=== PATIENT | male | born 1945 | race Caucasian/White ===

== ENCOUNTER 2023-08-04 20:49 | Inpatient (IN) | payer BC, MEDICARE, SELFPAY ==
[2023-08-04] VITALS (16 sets, daily range): BP systolic 141–204; BP diastolic 59–169; PULSE 93–122; RESP 13–22; TEMP 38.1; O2SAT 93–98
--- NOTE | ~2023-08-04 | CT_ITS ---
EXAMINATION: CT abdomen pelvis w con DATE: 08/05/2023 17:18 INDICATION: Fever and chills. Low back pain. Failed cholecystostomy tube placement. TECHNIQUE: Computed tomography (CT) of the abdomen and pelvis was performed with 100 mL Omnipaque 350 intravenous contrast. Automated exposure control and iterative reconstruction technique were employe d. The dose-length product was 1162.93 mGy-cm. COMPARISON: CT abdomen and pelvis 08/04/2023 FINDINGS: The visualized portions of the lung bases demonstrate small pleural effusions and mild depe ndent atelectasis. The heart size is normal. There are coronary artery calcifications. No pericardial effusion. There is a small sliding hiatal hernia. The liver and spleen are normal. The gallbladder i s normal in size and contains a gallstone. The pancreas and adrenal glands are normal. There is patch y parenchymal hypoenhancement in the kidneys, right worse than left, consistent with pyelonephritis. There are cysts in left kidney measuring up to 2.8 cm. There is calcified atherosclerosis of the aort a and many of the other arteries. The bladder is decompressed by a Antonio catheter. The prostate is mo derately enlarged. There is a right inguinal hernia containing fat. There is diverticulosis of the co martinez without evidence of diverticulitis. The appendix is not visualized. There is intraperitoneal cont rast predominantly near the liver that was injected during the recent attempted cholecystostomy tube placement. There are foci of free intraperitoneal gas from the recent procedure. There is severe lumb ar spondylosis. IMPRESSION: 1. Cholelithiasis. No gallbladder distention to suggest acute cholecystitis. 2. Bilateral pyelonephritis, right worse than left. I discussed this result with Dr. Davis. 3. Small pleural effusions. Reviewed, dictated and finalized at location A. IMPRESSION: 1. Cholelithiasis. No gallbladder distention to suggest acute cholecystitis. 2. Bilateral pyelonephritis, right worse than left. I discussed this result wit h Dr. Davis. 3. Small pleural effusions.
--- NOTE | ~2023-08-04 | US_ITS ---
US venous doppler [facility] DATE: 08/06/2023 11:40 INDICATION: Swelling of the lower extremities TECHNIQUE: Real-time and color flow imaging and Doppler analysis of the veins of both lower extremiti es COMPARISON: None FINDINGS: The greater saphenous veins are patent. There is spontaneous and phasic flow and normal aug mentation and color flow signal and normal compression of the deep veins of both lower extremities. IMPRESSION: No evidence of deep venous thrombosis of the lower extremities Reviewed, dictated and finalized at Location A. Reviewed, dictated and finalized at location A.
--- NOTE | ~2023-08-04 | XR_ITS ---
EXAMINATION: XR chest 1V portable Exam Date/Time: 08/04/2023 21:35 CDT HISTORY: weakness,fall and fever Comparison: None. RESULT: Lines, tubes, and devices: None. Lungs and pleura: Subsegmental left basilar airspace opacity. Cardiomediastinal silhouette: Stable. Other: No acute osseous or upper abdominal finding. IMPRESSION: Subsegmental left basilar atelectasis/consolidation. Reviewed, dictated and finalized at location K.
--- NOTE | ~2023-08-04 | CT_ITS ---
EXAMINATION: CT abdomen pelvis wo con DATE: 08/04/2023 23:48 INDICATION: fátima flank/lbp, uti TECHNIQUE: Computed tomography (CT) of the abdomen and pelvis was performed without intravenous contr ast. Automated exposure control and iterative reconstruction technique were employed. The dose-length product was 728.30 mGy-cm. COMPARISON: None. FINDINGS: Lower thorax: Coronary artery calcifications. Small bilateral pleural effusions. Dependent atelectasi s. 3 mm right lower lobe pulmonary nodule. Liver: Normal. Biliary/Gallbladder: Dilated gallbladder. Large gallstone at the gallbladder neck. No bile duct dilat ion. Pancreas: No mass or duct dilation. Spleen: Normal. Adrenals:No mass. Kidneys: 3.1 cm indeterminate density right upper pole mass. Moderate bilateral perinephric stranding . No obstructing calcifications or hydronephrosis. GI tract: No small or large bowel dilation. Appendix is not confidently visualized. Diverticulosis wi thout diverticulitis. Mesentery/Peritoneum: No ascites, mass, or free air. Retroperitoneum: No mass. Atherosclerotic abdominal aortic and/or arterial calcifications. Pelvis: The urinary bladder is decompressed by Antonio catheter. Prostatomegaly. Small volume free pelv ic fluid. Soft Tissues: Mild body wall edema. Bones: No acute osseous finding. IMPRESSION: Small bilateral pleural effusions. 3 mm right lower lobe pulmonary nodule, for which no imaging is recommended unless the patient is at high risk, in which case consider an optional follow-up low-dose noncontrast CT of the chest in 12 mo nths. Gallbladder hydrops. Large gallstone at the gallbladder neck. Correlate for symptoms of right upper q uadrant pain and with biliary labs. Indeterminate density 3.1 cm right upper pole mass, recommend nonemergent outpatient CT or MRI withou t and with contrast for further evaluation. Trace ascites. Moderate body wall edema. Reviewed, dictated and finalized at location K. IMPRESSION: Small bilateral pleural effusions. 3 mm right lower lobe pulmonary nodule, for which no imaging is recommended unl ess the patient is at high risk, in which case consider an optional follow-up l ow-dose noncontrast CT of the chest in 12 months. Gallbladder hydrops. Large gallstone at the gallbladder neck. Correlate for sym ptoms of right upper quadrant pain and with biliary labs. Indeterminate density 3.1 cm right upper pole mass, recommend nonemergent outpa tient CT or MRI without and with contrast for further evaluation. Trace ascites. Moderate body wall edema.
--- NOTE | ~2023-08-04 | US_ITS ---
EXAMINATION: US perc cholecystostomy w imag DATE: 08/05/2023 17:20 INDICATION: Acute cholecystitis. TECHNIQUE: The procedure including the risks, benefits, and alternatives was discussed with the patie nt. Risks discussed included bleeding including bleeding and infection. Oral and written consent were obtained. A timeout was performed to verify the patient's name, date of , and procedure to b e performed. The skin overlying the liver and gallbladder was prepped and draped in usual sterile fas hion. Anesthetic was administered with 1% lidocaine subcutaneously. An 8.5 Fr catheter was inserted into the area of the gallbladder by trocar technique. The gallbladder was deep to the ribs, which de creased visibility. The metal stiffener and trocar needle were removed, and the pigtail tip was rg d. Bile could not be aspirated. Contrast was injected into tube, and a radiograph demonstrated that t he tube was not in the gallbladder. I removed the catheter. FINDINGS: There is a gallstone in the gallbladder. Ultrasound images demonstrate the catheter near th e gallbladder. IMPRESSION: 1. Failed cholecystostomy tube placement. 2. A CT performed after the procedure demonstrated bilateral pyelonephritis. I discussed this procedu re and the CT findings with Dr. Davis and the patient. Reviewed, dictated and finalized at location A. IMPRESSION: 1. Failed cholecystostomy tube placement. 2. A CT performed after the procedure demonstrated bilateral pyelonephritis. I discussed this procedure and the CT findings with Dr. Davis and the patient.
--- NOTE | ~2023-08-04 | US_ITS ---
EXAMINATION: US renal BI DATE: 08/06/2023 11:38 INDICATION: Right kidney mass. TECHNIQUE: Multiple ultrasound grayscale images of the kidneys were obtained. COMPARISON: CT abdomen and pelvis 08/05/2023, 08/04/2023 FINDINGS: The right kidney measures 12.2 x 6.6 x 6.7 cm. The left kidney measures 12.2 x 6.4 x 6.7 cm. The kidn eys demonstrate normal parenchymal echogenicity. There is no hydronephrosis. The bladder is decompres sed by a Antonio catheter. IMPRESSION: 1. No abnormal kidney mass identified. Reviewed, dictated and finalized at location E.
--- NOTE | ~2023-08-04 | XR_ITS ---
EXAMINATION: XR abdomen/kub 1V DATE: 08/05/2023 17:06 INDICATION: Choledocholithiasis status post cholecystostomy tube placement. TECHNIQUE: A supine view of the abdomen was obtained. COMPARISON: None. FINDINGS: The left lateral aspect of the abdomen is excluded. There are no dilated loops of bowel. Th ere is a gallstone in the gallbladder. A cholecystostomy tube is in the right upper quadrant. There i s contrast at the inferior margin of the liver and in the right paracolic gutter. IMPRESSION: 1. Cholecystostomy tube not in the gallbladder. I removed the cholecystostomy tube. 2. Cholelithiasis. Reviewed, dictated and finalized at location A. IMPRESSION: 1. Cholecystostomy tube not in the gallbladder. I removed the cholecystostomy t ube. 2. Cholelithiasis.
--- NOTE | 2023-08-04 21:11 | ECG_ITS ---
Measurements Intervals [place] Rate: 94 P: 21 WI: 164 QRS: 10 QRSD: 78 T: 14 QT: 325 QTc: 408 Interpretive Statements SINUS RHYTHM ATRIAL PREMATURE COMPLEX NONSPECIFIC ST-T WAVE ABNORMALITY- ANTERIOR LEADS BASELINE ARTIFACT- I, III, AVR, AVL, AVF, V2-V6 BORDERLINE ECG NO PREVIOUS ECG AVAILABLE FOR COMPARISON Electronically Signed On 08-05-2023 7:29:01 CDT by Naga Diallo D.O.
[2023-08-04 21:25] LABS: Basophils Percent Auto 0.2 % (0.2-1.2); Eosinophils Percent Auto 0.1 % (0-4.4); Hematocrit 25.4 % (42.0-52.0); Hemoglobin 8.2 g/dL (14.0-18.0); Immature Granulocyte Percent A 1.2 % (0-0.5); Lymphocytes Absolute Auto 5.68 K/mm3 (0.9-3.2); Lymphocytes Percent Auto 34.5 % (18.3-44.2); Mean Corpuscular HGB Conc 32.3 g/dl (32-36); Mean Corpuscular Hemoglobin 30.6 pg (26-34); Mean Corpuscular Volume 94.8 fl (80-100); Mean Platelet Volume 9.6 fl (7.4-10.4); Neutrophils Absolute Auto 9.5 K/mm3 (1.3-6.7); Platelet Count Result 359 k/mm3 (150-375); Red Blood Count 2.68 M/mm3 (4.6-6.20); Red Cell Distribution Width 15.7 % (11.5-14.5); White Blood Count 16.5 K/mm3 (4.5-10.0)
[2023-08-04 21:36] LABS: Alanine Aminotransferase 34 U/L (6-50); Albumin Level 3.1 g/dL (3.5-5.1); Alkaline Phosphatase 116 U/L (38-126); Anion Gap 7 mmol/L (4-12); Aspartate Amino Transferase 37 U/L (17-59); Bilirubin,Total 0.5 mg/dL (0.2-1.3); Blood Urea Nitrogen 24 mg/dL (9-20); Calcium 8.5 mg/dL (8.4-10.2); Carbon Dioxide 26 mmol/L (22-30); Chloride 97 mmol/L (98-107); Estimated CRCL calculation 43 ml/min; Estimated Glomerular Filt Rate 45; Glucose 128 mg/dL (65-110); Platelet Estimate Slightly Increased (Adequate); Potassium 4.2 mmol/L (3.4-5.0); Sodium 130 mmol/L (137-145)
[2023-08-04 21:37] LABS: Anisocytosis 1+; Hypochromasia 2+; Microcytosis 1+ (NORMAL); Stomatocytes 1+
[2023-08-04 21:38] LABS: Schistocytes Rare
[2023-08-04 21:42] LABS: Appearance Urine Clear (Clear); Bacteria Urine None Seen /hpf; Bilirubin Urine Negative (Negative); Blood Urine Trace (Negative); Color Urine Yellow (Yellow); Glucose Urine UA Negative (Negative); Ketones Urine Negative (Negative); Leukocyte Esterase Ur 2+ LEU/UL (Negative); Nitrate Urine Negative (Negative); Non Pathogenic Casts 0-2; Protein Urine 1+ mg/dL (Negative); RBC Urine 0-2 /hpf (0-2); Specific Grav Ur 1.011 (1.001-1.035); Squamous Epithelial Cell Urine None Seen /hpf (Few); Urobilinogen Urine 0.2 mg/dL (<2.0); WBC Urine 21-50 /hpf (0-3); pH Urine 6.5 (5.0-9.0)
[2023-08-04 21:43] LABS: Add Urine Microscopic? YES
[2023-08-04 22:02] LABS: Influenza A QL RT-PCR Negative (Negative); Influenza B QL RT-PCR Negative (Negative); RSV RNA, RT-PCR Negative (Negative); SARS-CoV-2 RNA PCR Negative (Negative)
--- NOTE | 2023-08-04 23:00 | PC.NURSE ---
UA was sent to lab off of the original catheter that was in place at time of arrival to ed. Daughter asked us to hold of on changing a lozada as she wanted to speak with the doctor about potentially taking it out and leaving it out. BREONNA Ha spoke with daughter and verbalized that she wanted to leave a lozada in place at this time but they could follow up with urology afterwards about potential trials of lozada removal. She did not want to possibly cause urinary retention while the patient was already sick/possibly septic.
[2023-08-04] MEDS: SODIUM CHLORIDE 0.9% IV 1,000 ML 999 ML IV CONT (23:01)
[2023-08-04] MEDS: ACETAMINOPHEN 500 MG TABLET 1000 MG PO (23:01)
--- NOTE | 2023-08-04 23:30 | PC.NURSE ---
lozada catheter changed. This rn removed catheter that was in place at time of presentatinon to the er. This rn then placed a new catheter.
[2023-08-04] MEDS: ONDANSETRON INJ 4 MG/2 ML VIAL IV PUSH (23:31)
[2023-08-04] MEDS: MORPHINE SULFATE (*CRX) 4 MG/ML INJ IV PUSH (23:31)
--- NOTE | 2023-08-04 23:46 | ED.WEAKNESS ---
HPI - Weakness General Chief complaint: Weakness <THEE Edmondson Last Filed: 08/05/23 02:44> Stated complaint: gen weakness, fever <THEE Edmondson Last Filed: 08/05/23 02:44> Time Seen by Provider: 08/04/23 22:48 <THEE Edmondson Last Filed: 08/05/23 02:44> Source: patient and family <THEE Edmondson Last Filed: 08/05/23 02:44> Mode of arrival: ambulatory <THEE Edmondson Last Filed: 08/05/23 02:44> Limitations: no limitations <THEE Edmondson Last Filed: 08/05/23 02:44> History of Present Illness HPI Narrative: patient is a 78-year-old male who presents to the ED with report of weakness and fever. Daughter at bedside graduate assistant providing information. She reports patient was her admitted to a hospital in [place] 3 weeks ago for UTI, sepsis, ARF, new onset AFIB, acute ITP. Found to have urinary retention, Antonio catheter placed. Received IVIG, high dose steroids, multiple platelet infusions. Started on Cardizem for afib, no blood thinners. Hospitalized for 2.5 weeks total. Finished course of oral augmentin for UTI 2 days ago. Today, became increasingly weak, fatigued, and developed a fever. He has not taken anything for the fever. He complains of chronic back pain, which he has previously seen pain management for. Denies abdominal pain, nausea, vomiting. Antonio catheter has been draining appropriately. Has not been changed since it was 1st placed at initial hospitalization. Denies hematuria. <THEE Edmondson Last Filed: 08/05/23 02:44> Related Data Home medications: Home Medications Medication Instructions Recorded Confirmed [place] 5 - 325 mg PO Q4H PRN Pain (Scale 08/04/23 08/05/23 Score 7-10) acetaminophen 325 mg tablet 325 mg PO Q4H PRN Pain, Mild 08/04/23 08/05/23 diltiazem HCl 60 mg tablet 60 mg PO TID 08/04/23 08/05/23 furosemide 20 mg tablet (Lasix) 20 mg PO DAILY 08/04/23 08/05/23 potassium chloride 20 mEq 20 meq PO DAILY 08/04/23 08/05/23 tablet,extended release tamsulosin 0.4 mg capsule (Flomax) 0.4 mg PO DAILY 08/04/23 08/05/23 <April Pardo PA-C - Last Filed: 08/05/23 02:44> Allergies/Adverse reactions: Allergies Allergy/AdvReac Type Severity Reaction Status Date / Time No Known Allergies Allergy Verified 08/04/23 23:03 <April Pardo PA-C - Last Filed: 08/05/23 02:44> Review of Systems Review of Systems: CONSTITUTIONAL: See HPI CARDIOVASCULAR: Denies chest pain RESPIRATORY: Denies dyspnea. GASTROINTESTINAL: Denies abdominal pain, nausea, vomiting, or diarrhea. GENITOURINARY: See HPI. MUSCULOSKELETAL: See HPI. NEUROLOGIC: Reports generalized weakness. Denies headache, dizziness, numbness, or focal weakness. <April Pardo PA-C - Last Filed: 08/05/23 02:44> All systems reviewed & are unremarkable except as noted in HPI and below <April Pardo PA-C - Last Filed: 08/05/23 02:44> ON LICENSE OF [facility] Past Medical History Medical History: Medical History Atrial fibrillation BPH loc w urin obs/LUTS CKD (chronic kidney disease) History of ITP HTN (hypertension), benign <THEE Edmondson Last Filed: 08/05/23 02:44> Surgical History Surgical History: Surgical History (Updated 08/05/23 @ 13:49 by Kris Diamond MD) Hx of appendectomy <THEE Edmondson Last Filed: 08/05/23 02:44> Social History Social History: Social History (Updated 08/05/23 @ 13:51 by Kris Diamond MD) Social History: Lives alone, Spend pack in [place]. No hx of tobacco use. Rare alcohol use but does binge 6-7 drinks once/month. No hx of drug use. Wishes to be DNR. He nominates his daughter to be the individual to make decision for his if he is unable. Smoking status: Never smoker Alcohol intake: never Substance use: never Do You Feel Safe
[2023-08-05] VITALS (29 sets, daily range): BP systolic 123–166; BP diastolic 54–87; PULSE 78–107; RESP 13–20; TEMP 36.8–39.1; O2SAT 90–99; BMI 30.1
--- NOTE | 2023-08-05 00:11 | PC.NURSE ---
Daughter - Yessica Doss
[2023-08-05] MEDS: SODIUM CHLORIDE 0.9% IV 1,000 ML 999 ML IV CONT (00:17)
--- NOTE | 2023-08-05 05:51 | ADMGEN ---
This patient, Travis Sears, was admitted to Medical Room 243-01. Patient/family oriented to hospital policies and general routines including ID bracelet, bed and alarms, visiting hours, pain management, procedures, bathroom and other care routines, personal items, smoking policy, room service/diet, and visiting hours. Information on how to activate the Rapid Response Team has been discussed. Patient/Family are encouraged to report perceived risks to care and to ask questions if they do not understand what they are told or what they should do.
[2023-08-05] MEDS: ACETAMINOPHEN 325 MG TABLET 650 MG PO ×2 (06:02→13:46)
[2023-08-05] MEDS: MORPHINE SULFATE (*CRX) 4 MG/ML INJ IV PUSH (10:40)
--- NOTE | 2023-08-05 12:20 | PM.IMHP ---
H&P: HPI History of Present Illness Date/Time: 08/05/23 12:20 Chief Complaint: Fever, weakness Narrative: 78yo male with AFib, ITP, BPH, psoriatic arthritis on Remicade and HTN here for fever and weakness. Patient lives in [place] but spends his pack in [place]. He was having symptoms of urine retention and has known BPH so his primary care doctor started him on Flomax recently. He has elevated PSA but has declined to see Urology for this. Patient was in [place] when he became ill resulting becoming unresponsive and fall. He was hospitalized for about 2.5 weeks. During that time he developed new onset atrial fibrillation, acute kidney injury and low platelets with concern for ITP. He was treated with IVIG, high-dose steroids and platelet transfusions. He was treated with rate controlling agents and converted. he was not treated with anticoagulation. He also had urine retention with UTI so Antonio placed. Family does not think he had sepsis. Patient became edematous and this was treated with Lasix. Patient states he still has some mild edema but overall improved. His renal function had been trending downward. He was discharged around July 25 from the hospital. He returned to this area about a week ago and has been staying with his sister. He has chronic low back pain but much worse since being in the hospital. He has been able to be up walking with a walker since being at sister's house. He has been taking Tylenol and hydrocodone bitartrate for the back pain. Will take the hydrocodone about once a day on average. He did have an MRI of lumbar spine in [place] which showed bulging discs. Patient was discharged on Augmentin which he completed on 08/02/23. On the day of admission patient was feeling weaker. He developed a fever to 101.4. No nausea or vomiting. He has been eating okay. No chest pain, shortness of breath, cough or palpitations. He does feel a fullness behind his scrotum but this is long standing. Passing excessive flatus but no diarrhea or constipation. No abdominal pain or pain with eating or after eating. No focal weakness but has been feeling lethargic. Because of the fever and weakness, he presented to the ED for evaluation. In the ED, he was febrile to 100.6, tachycardic 117 with BP as high as 204/169. WBC 16.5K with Hgb 8.2 and plt 359K. Rare schistocytes noted. Sodium 130 and BUN 24 and Cr 1.5. LFTs normal. UA showing 1+ protein, 2+ LE, and 21-50 WBC. Influenza, RSV and COVID PCR negative. CXR showing subsegmental left basilar atelectasis/consolidation. CT Abd/plevis showing small bilateral pleural effusion and atelectasis, dilated GB with GS in the neck of the GB and perinephric stranding with 3.1cm right upper pole renal mass. Also noted to have trace ascites and moderate body wall edema. BCx obtained. EKG showing sinus rhythm with nonspecific ST-T wave changes. He was given Tylenol,morphine, zofran IV fluids and one dose of Rocephin. Since admission, BCx growing GNB. Review of Systems Review of Systems: All systems reviewed & are unremarkable except as noted in HPI and below PMFSH Past Medical History Medical History Atrial fibrillation BPH loc w urin obs/LUTS CKD (chronic kidney disease) History of ITP HTN (hypertension), benign Surgical History Surgical History (Updated 08/05/23 @ 13:49 by Kris Diamond MD) Hx of appendectomy Social History Social History (Updated 08/05/23 @ 13:51 by Kris Diamond MD) Social History: Lives alone, Spend pack in [place]. No hx of tobacco use. Rare alcohol use but does binge 6-7 drinks once/month. No hx of drug use. Wishes to be DNR. He nominates his daughter to be the individual to make decision for his if he is unable. Smoking status: Never smoker Alcohol intake: never Substance use: never Do You Feel Safe in your Home?: Yes Lack of Transportation: No Lack of Food: Never True C
[2023-08-05] MEDS: MEROPENEM 1 GM/NS 100 ML 1 GM/100 ML BAG IVPB ×2 (12:36→21:14)
[2023-08-05] MEDS: HYDROcodone/acetaminophen (*CRX) 5-325 MG TABLET 1 TAB PO (14:23)
[2023-08-05] MEDS: SODIUM CHLORIDE 0.9% IV 1,000 ML 100 ML IV CONT (14:23)
--- NOTE | 2023-08-05 14:46 | PM.CNGS ---
Assessment and Plan Assessment and plan (1) Cholelithiasis and acute cholecystitis with obstruction: Code(s): K80.01 - Calculus of gallbladder with acute cholecystitis with obstruction Status: Acute Assessment and Plan: It seems very likely that the patient is suffering from severe acute cholecystitis from a large stone obstructing the cystic duct. Despite no significant abdominal tenderness and normal liver function tests, it still does seem to be the most likely diagnosis. With patient having several comorbidities and do not resuscitate status, I called Dr. Arroyo, radiologist, and discussed with him requesting ultrasound-guided cholecystostomy tube to be done today. He will go ahead and arrange this. Patient received a dose of ceftriaxone and has been started on meropenem 1 g q.8 hours. Thank you for asking me to see him in consultation. I will follow along with you. (2) Gram-negative bacteremia: Code(s): R78.81 - Bacteremia Status: Acute Assessment and Plan: Both sets of blood cultures from the emergency room last night. (3) Sepsis: Qualifiers: Sepsis acute organ dysfunction status: unspecified Sepsis type: sepsis due to unspecified organism Qualified Code(s): A41.9 - Sepsis, unspecified organism Code(s): A41.9 - Sepsis, unspecified organism Status: Acute Assessment and Plan: Gram negative sepsis (4) Presence of indwelling urinary catheter: Code(s): Z96.0 - Presence of urogenital implants Status: Chronic (5) CKD (chronic kidney disease): Qualifiers: Chronic kidney disease stage: unspecified stage Qualified Code(s): N18.9 - Chronic kidney disease, unspecified Code(s): N18.9 - Chronic kidney disease, unspecified Status: Chronic (6) Mass of right kidney: Code(s): N28.89 - Other specified disorders of kidney and ureter Status: Chronic Assessment and Plan: Noted on CT scan in the emergency room. Further image will need to be done. (7) DNR (do not resuscitate): Code(s): Z66 - Do not resuscitate Status: Chronic Assessment and Plan: Will discuss with the patient regarding surgical options and whether not he would wish to proceed with that. History of Present Illness Consult details Consult date: 08/06/23 Reason for consult: other (fever) Requesting physician: Kris Diamond MD Narrative: Patient is a 78-year-old man who was living in [place] until about a week ago. About 4 weeks ago, while the in [place], he became ill, unresponsive and fell. He was hospitalized for 2-1/2 weeks. During this hospitalization he had very low platelets and concern for ITP. He was treated with immunoglobulin and high-dose steroids and platelet transfusions. He also had acute kidney injury and AFib that was new onset. He has a history of BPH and was taking Flomax but since his hospitalization and fall, he has had an indwelling Antonio catheter. He has chronic low back pain which reportedly is due to bulging discs by an MRI scan. Patient came to [place] emergency room yesterday with fever to 101.4 and increasing weakness and lethargy. In the emergency room, [place] [address]. Platelet count in the emergency room was 359,000. Repeat this afternoon shows 277,000. He has the indwelling Antonio catheter and his urinalysis showed pyuria but no bacteria. His creatinine was 1.5 and estimated creatinine clearance was 43. His sodium was low at 130 but liver function tests were all within normal limits. He had a CT scan late last night which showed a very distended gallbladder and a large stone lodged in the neck of the gallbladder. This was read as a hydrops. I reviewed the CT scan myself and the stone by my measurement is 2.3 cm. There were no obvious signs of cholecystitis in addition to what has already been mentioned--no pericholecystic fluid or gallbladder wall thickening. Patient's temperature actual
[2023-08-05 14:52] LABS: Basophils Percent Auto 0.2 % (0.2-1.2); Eosinophils Percent Auto 0.4 % (0-4.4); Hematocrit 21.3 % (42.0-52.0); Immature Granulocyte Absolute 0.09 K/mm3 (0.00-0.031); Immature Granulocyte Percent A 0.8 % (0-0.5); Lymphocytes Absolute Auto 2.41 K/mm3 (0.9-3.2); Lymphocytes Percent Auto 22.2 % (18.3-44.2); Mean Corpuscular HGB Conc 32.9 g/dl (32-36); Mean Corpuscular Hemoglobin 30.8 pg (26-34); Mean Corpuscular Volume 93.8 fl (80-100); Monocytes Absolute Auto 0.9 K/mm3 (0.1-0.6); Monocytes Percent Auto 8.4 % (2.6-8.5); Neutrophils Absolute Auto 7.4 K/mm3 (1.3-6.7); Platelet Count Result 277 k/mm3 (150-375); Red Blood Count 2.27 M/mm3 (4.6-6.20); Red Cell Distribution Width 15.9 % (11.5-14.5); White Blood Count 10.8 K/mm3 (4.5-10.0)
[2023-08-05 15:01] LABS: Lactic Acid Reflex 2.1 mmol/L (0.7-2.0)
[2023-08-05 15:04] LABS: INR 1.1; Prothrombin Time 14.8 Seconds (11.1-14.7)
[2023-08-05 15:05] LABS: Partial Thromboplastin Time 32.4 Seconds (22.3-36.8)
[2023-08-05 15:10] LABS: Alanine Aminotransferase 28 U/L (6-50); Albumin Level 2.6 g/dL (3.5-5.1); Alkaline Phosphatase 96 U/L (38-126); Anion Gap 4 mmol/L (4-12); Aspartate Amino Transferase 29 U/L (17-59); Bilirubin,Total 0.3 mg/dL (0.2-1.3); Blood Urea Nitrogen 20 mg/dL (9-20); Calcium 7.9 mg/dL (8.4-10.2); Carbon Dioxide 26 mmol/L (22-30); Chloride 100 mmol/L (98-107); Estimated CRCL calculation 42 ml/min; Estimated Glomerular Filt Rate 45; Glucose 138 mg/dL (65-110); Lipase 26 U/L (23-300); Potassium 3.8 mmol/L (3.4-5.0); Sodium 130 mmol/L (137-145)
--- NOTE | 2023-08-05 15:16 | PCPTNOTE ---
per RN, hold therapy at this time, pt has low hemoglobin and other abnormal labs they are trying to figure out, pt leaving for ultrasound soon, will follow
[2023-08-05 15:41] LABS: Procalcitonin 0.9 ng/mL
--- NOTE | 2023-08-05 15:59 | PCOTNOTE ---
Per PT, RN reports to hold therapy for right now due to abnormal labs and low hemiglobin. Will follow.
[2023-08-05 16:35] LABS: Iron 31 ug/dL (49-181)
[2023-08-05 16:45] LABS: Percent Iron Saturation 16 % (20-50)
[2023-08-05 17:43] LABS: Folic Acid 10.4 ng/mL (2.76->20)
[2023-08-05] MEDS: CYCLOBENZAPRINE HCL 5 MG TABLET PO (17:44)
[2023-08-05 17:49] LABS: Reflex Lactic Acid Yes or No Add Lactic
[2023-08-05 19:37] LABS: Lactic Acid 1.9 mmol/L (0.7-2.0)
[2023-08-05 20:58] LABS: Hemoglobin 6.4 g/dL (14.0-18.0)
[2023-08-06] VITALS (7 sets, daily range): BP systolic 121–139; BP diastolic 53–65; PULSE 79–104; RESP 16–17; TEMP 36.5–37.6; O2SAT 91–100
[2023-08-06] MEDS: CYCLOBENZAPRINE HCL 5 MG TABLET PO ×2 (03:41→12:19)
[2023-08-06] MEDS: HYDROcodone/acetaminophen (*CRX) 5-325 MG TABLET 1 TAB PO ×3 (03:41→15:07)
[2023-08-06 05:50] LABS: Basophils Percent Auto 0.3 % (0.2-1.2); Eosinophils Absolute Auto 0.1 K/mm3 (0-0.3); Eosinophils Percent Auto 0.4 % (0-4.4); Hematocrit 27.6 % (42.0-52.0); Hemoglobin 8.7 g/dL (14.0-18.0); Immature Granulocyte Absolute 0.14 K/mm3 (0.00-0.031); Immature Granulocyte Percent A 1.2 % (0-0.5); Lymphocytes Absolute Auto 3.15 K/mm3 (0.9-3.2); Lymphocytes Percent Auto 26.8 % (18.3-44.2); Mean Corpuscular HGB Conc 31.5 g/dl (32-36); Mean Corpuscular Hemoglobin 28.5 pg (26-34); Mean Corpuscular Volume 90.5 fl (80-100); Monocytes Absolute Auto 1.1 K/mm3 (0.1-0.6); Neutrophils Absolute Auto 7.3 K/mm3 (1.3-6.7); Neutrophils Percent Auto 62.3 % (45.5-73.1); Platelet Count Result 297 k/mm3 (150-375); Red Blood Count 3.05 M/mm3 (4.6-6.20); Red Cell Distribution Width 17.6 % (11.5-14.5); White Blood Count 11.7 K/mm3 (4.5-10.0)
[2023-08-06 06:03] LABS: Alanine Aminotransferase 35 U/L (6-50); Albumin Level 2.3 g/dL (3.5-5.1); Alkaline Phosphatase 88 U/L (38-126); Anion Gap 2 mmol/L (4-12); Aspartate Amino Transferase 36 U/L (17-59); Bilirubin,Total 0.5 mg/dL (0.2-1.3); Blood Urea Nitrogen 18 mg/dL (9-20); Calcium 7.8 mg/dL (8.4-10.2); Carbon Dioxide 26 mmol/L (22-30); Chloride 100 mmol/L (98-107); Estimated CRCL calculation 42 ml/min; Estimated Glomerular Filt Rate 45; Glucose 105 mg/dL (65-110); Magnesium 1.8 mg/dL (1.6-2.3); Phosphorus 3.3 mg/dL (2.5-4.5); Potassium 3.6 mmol/L (3.4-5.0); Sodium 128 mmol/L (137-145)
[2023-08-06] MEDS: MEROPENEM 1 GM/NS 100 ML 1 GM/100 ML BAG IVPB ×3 (06:23→21:13)
--- NOTE | 2023-08-06 08:25 | PCPTNOTE ---
Awaiting results of Doppler imaging. Pendign results will perform PT evaluation as able./
--- NOTE | 2023-08-06 08:26 | PCOTNOTE ---
Awaiting results of the doppler before OT evaluation. Will follow.
--- NOTE | 2023-08-06 11:29 | ECG_ITS ---
Measurements Intervals [place] Rate: 74 P: 22 [place]: 173 QRS: -2 QRSD: 90 T: -5 QT: 337 QTc: 375 Interpretive Statements SINUS RHYTHM CONSIDER INFERIOR INFARCT, AGE INDETERMINATE BASELINE ARTIFACT- I, II, AVR, AVF, V1 ABNORMAL ECG COMPARED TO ECG 08/04/2023 21:46:46 NO SIGNIFICANT CHANGES Electronically Signed On 08-06-2023 19:43:01 CDT by Naga Diallo D.O.
[2023-08-06] MEDS: ACETAMINOPHEN 325 MG TABLET 650 MG PO (12:18)
--- NOTE | 2023-08-06 15:45 | PM.PNGS ---
Progress Note: A&P Assessment and Plan (1) Pyelonephritis, acute: Code(s): N10 - Acute pyelonephritis Status: Acute Assessment and Plan: Bilateral evidence of pyelonephritis by CT imaging. On meropenem which provides excellent coverage. (2) Gram-negative bacteremia: Code(s): R78.81 - Bacteremia Status: Acute Assessment and Plan: ID still pending. Suspect from #1 above. Cont meropenem. (3) Presence of indwelling urinary catheter: Code(s): Z96.0 - Presence of urogenital implants Status: Chronic Assessment and Plan: Recommend urology evaluation to possibly remove. (4) DNR (do not resuscitate): Code(s): Z66 - Do not resuscitate Status: Chronic (5) Cholelithiasis: Qualifiers: Cholelithiasis location: gallbladder Cholecystitis presence: without cholecystitis Biliary obstruction: without biliary obstruction Qualified Code(s): K80.20 - Calculus of gallbladder without cholecystitis without obstruction Code(s): K80.20 - Calculus of gallbladder without cholecystitis without obstruction Status: Chronic Assessment and Plan: cholecystostomy tube unable to be placed as GB no longer distended as was on CT scan. Get U/S and HIDA scan after patient improves from present illness. (6) CKD (chronic kidney disease): Qualifiers: Chronic kidney disease stage: unspecified stage Qualified Code(s): N18.9 - Chronic kidney disease, unspecified Code(s): N18.9 - Chronic kidney disease, unspecified Status: Chronic Assessment and Plan: BUN and Cr have been stable since admission. CrCl about 42. Subjective Subjective Date/Time Seen: 08/06/23 15:45 Patient reports: no new complaints, feels better, tolerating a regular diet, no bowel movement and afebrile (since 2:00pm yesterday) Interval history: Explained events of yesterday to patient--when imaging done to place cholecystostomy tube, gallbladder no longer severely distended. Attempt made under U/S but not successfull. CT scan abd/pelvis after attempt showed no intraabdominal injury but did reveal bilateral pyelonephritis. Review of Systems Review of Systems: All systems reviewed & are unremarkable except as noted in HPI and below (HPI) Exam Const: General: cooperative, comfortable, no acute distress, alert, awake, diaphoretic and well nourished Orientation/consciousness: patient oriented x3 and No confusion Resp: Effort & Inspection: normal respiratory effort, normal respiratory pattern, no cough, not labored and not tachypneic Auscultation: clear to auscultation bilaterally, no rales and no rhonchi Cardio: Rate: regular rate Rhythm: regular rhythm Heart sounds: no gallops, no murmurs and no rubs GI: Inspection: normal to inspection, non-distended, obesity and no visible herniation GI Palp: Yes Soft to palpation, No Tenderness to palpation present (GI), No Guarding due to palpation present (GI), No Hernia present, No Palpable mass present and No Rebound tenderness present Auscultation: normal bowel sounds Neuro: General: patient oriented x3 and no focal motor deficits Extrem: General: no calf tenderness and no edema Psych: Affect: normal affect Insight: Good insight present (Psych) Judgement: Good judgement present (Psych) Objective Data Vital Signs Vital Signs: Vital Signs - 24 hr 08/05/23 19:23 08/05/23 20:00 08/05/23 23:02 Temperature 36.8 C 37.6 C Pulse Rate 97 97 98 Respiratory Rate 20 20 18 Blood Pressure 156/59 H 129/55 L Pulse Oximetry 98 98 94 Oxygen Delivery Room Air 08/05/23 23:20 08/06/23 00:20 08/06/23 01:24 Temperature 37.9 C H 37.3 C 37.2 C Pulse Rate 100 104 H 99 Respiratory Rate 16 16 16 Blood Pressure 123/54 L 121/59 L 131/62 Pulse Oximetry 92 96 96 Oxygen Delivery 08/06/23 01:40 08/06/23 03:35 08/06/23 04:11 Temperature 37.6 C 37.4 C 37.4 C Pulse Rate 92 80 80 Respiratory Rate 16 16 16 Blood Pressur
--- NOTE | 2023-08-06 16:43 | PM.IMPN ---
Progress Note: A&P Assessment and Plan (1) Sepsis: Qualifiers: Sepsis acute organ dysfunction status: unspecified Sepsis type: sepsis due to unspecified organism Qualified Code(s): A41.9 - Sepsis, unspecified organism Code(s): A41.9 - Sepsis, unspecified organism Status: Acute Assessment and Plan: Patient presents with fever found to be tachycardic with leukocytosis. Lactic normal. Received 1 dose of Rocephin in the ED. BCx positve for EColi UCx growing 10-49K colonies of EColi Meropenem started 08/04 since source is probably urinary but consider cholecystitis with impacted GS. UA not consistent with fulminant infection but repeat CT scan with contrast showing R>L bilateral pyelonephritis Still consider prostatitis given the fact he completed antibiotics a few days ago and now has recurrence. Consider also related to gallbladder disease with impacted stone but felt less likely. LFTs remaining normal and has minimal symptoms. However he was on narcotics prior to admission and here as well which may be blunting his symptoms. General surgery consulted and cholecystostomy tube attempted but unsuccessful b/c GB no longer distended Follow up on BCx results. Continue meropenem (2) UTI (urinary tract infection): Qualifiers: Encounter type: subsequent encounter Indwelling urinary catheter type: indwelling urethral catheter Urinary tract infection type: catheter-associated UTI Qualified Code(s): T83.511D - Infection and inflammatory reaction due to indwelling urethral catheter, subsequent encounter; N39.0 - Urinary tract infection, site not specified Code(s): N39.0 - Urinary tract infection, site not specified Status: Acute Assessment and Plan: UA noted and may be UTI. UCx collected. Repeat CT noted and sepsis more likely related to UTI/Pyelonephritis. Rocephin given once now changed to meropenem UCx growing hogue-sensitive EColi. Follow up on BCx results. (3) Dilated gallbladder: Code(s): K82.8 - Other specified diseases of gallbladder Status: Acute Assessment and Plan: CT scan showing large GS in the GB neck. He has minimal abdominal pain with deep palpation but has been on narcotics General surgery consulted and appreciate their input Meropenem started. BP stable Cholecystostomy tube attempted but unsuccessful b/c GB no longer distended by repeat CT scan Plan for RUQ US and HIDA scan after patient improves Follow clinically. (4) CKD (chronic kidney disease): Qualifiers: Chronic kidney disease stage: unspecified stage Qualified Code(s): N18.9 - Chronic kidney disease, unspecified Code(s): N18.9 - Chronic kidney disease, unspecified Status: Chronic Assessment and Plan: Cr 1.5 on admission. He states he had normal renal function prior to last hospitalization. Repeat CT showing 2.8cm left renal cyst; no evidence of renal abscess. Old records reviewed showing BUN 45 and Cr 2 at time of discharge (07/25) Renal US no hydronephrosis or masses. Remains on IV fluids. Renal function stable at 1.5 Cr better than at last discharge but stable to suggest probably at baseline. Patient eating well. Will stop IV fluids (5) BPH loc w urin obs/LUTS: Code(s): N40.1 - Benign prostatic hyperplasia with lower urinary tract symptoms Status: Acute Assessment and Plan: On Flomax at home. Has chronic indwelling Antonio that was changed out in the ED. BP stable. Will resume Flomax. As above. Urology consult (6) HTN (hypertension), benign: Code(s): I10 - Essential (primary) hypertension Status: Acute Assessment and Plan: Patient's blood pressure was elevated on admission related to above. Blood pressure stable. Resume home meds (7) Atrial fibrillation: Code(s): I48.91 - Unspecified atrial fibrillation Status: Acute Assessment and Plan: Patient with what sounds like
[2023-08-06] MEDS: dilTIAZem HCL 60 MG TABLET PO (21:04)
[2023-08-06] MEDS: TAMSULOSIN HCL 0.4 MG CAPSULE PO (21:04)
[2023-08-06] MEDS: PANTOPRAZOLE 40 MG TABLET PO (21:04)
[2023-08-06] MEDS: MORPHINE SULFATE (*CRX) 2 MG/ML INJ IV PUSH (21:09)
[2023-08-07 05:07] VITALS: BP 134/62; PULSE 80; RESP 17; TEMP 36.7; O2SAT 95
[2023-08-07] MEDS: dilTIAZem HCL 60 MG TABLET PO ×3 (05:25→21:15)
[2023-08-07] MEDS: MEROPENEM 1 GM/NS 100 ML 1 GM/100 ML BAG IVPB ×2 (05:30→14:41)
[2023-08-07 05:33] LABS: Basophils Percent Auto 0.3 % (0.2-1.2); Eosinophils Absolute Auto 0.1 K/mm3 (0-0.3); Eosinophils Percent Auto 0.6 % (0-4.4); Hematocrit 27.4 % (42.0-52.0); Hemoglobin 8.9 g/dL (14.0-18.0); Immature Granulocyte Percent A 0.8 % (0-0.5); Lymphocytes Absolute Auto 3.41 K/mm3 (0.9-3.2); Lymphocytes Percent Auto 27.5 % (18.3-44.2); Mean Corpuscular HGB Conc 32.5 g/dl (32-36); Mean Corpuscular Hemoglobin 29.2 pg (26-34); Mean Corpuscular Volume 89.8 fl (80-100); Mean Platelet Volume 9.2 fl (7.4-10.4); Monocytes Absolute Auto 0.9 K/mm3 (0.1-0.6); Monocytes Percent Auto 7.5 % (2.6-8.5); Neutrophils Absolute Auto 7.8 K/mm3 (1.3-6.7); Neutrophils Percent Auto 63.3 % (45.5-73.1); Platelet Count Result 256 k/mm3 (150-375); Red Blood Count 3.05 M/mm3 (4.6-6.20); Red Cell Distribution Width 17.7 % (11.5-14.5); White Blood Count 12.4 K/mm3 (4.5-10.0)
[2023-08-07 05:48] LABS: Alanine Aminotransferase 41 U/L (6-50); Albumin Level 2.2 g/dL (3.5-5.1); Alkaline Phosphatase 98 U/L (38-126); Anion Gap 4 mmol/L (4-12); Aspartate Amino Transferase 38 U/L (17-59); Bilirubin,Total 0.4 mg/dL (0.2-1.3); Blood Urea Nitrogen 17 mg/dL (9-20); Calcium 7.7 mg/dL (8.4-10.2); Carbon Dioxide 23 mmol/L (22-30); Chloride 101 mmol/L (98-107); Estimated CRCL calculation 45 ml/min; Estimated Glomerular Filt Rate 49; Glucose 94 mg/dL (65-110); Potassium 3.5 mmol/L (3.4-5.0); Sodium 128 mmol/L (137-145)
[2023-08-07] MEDS: PANTOPRAZOLE 40 MG TABLET PO ×2 (08:27→21:15)
[2023-08-07] MEDS: MORPHINE SULFATE (*CRX) 2 MG/ML INJ IV PUSH ×2 (08:27→16:10)
[2023-08-07] MEDS: CYCLOBENZAPRINE HCL 5 MG TABLET PO (11:09)
[2023-08-07] MEDS: HYDROcodone/acetaminophen (*CRX) 5-325 MG TABLET 1 TAB PO (11:09)
[2023-08-07 14:00] VITALS: BP 133/57; PULSE 97; RESP 18; TEMP 37.6; O2SAT 97
--- NOTE | 2023-08-07 15:04 | PM.IMPN ---
Progress Note: A&P Assessment and Plan (1) Sepsis: Qualifiers: Sepsis acute organ dysfunction status: unspecified Sepsis type: sepsis due to unspecified organism Qualified Code(s): A41.9 - Sepsis, unspecified organism Code(s): A41.9 - Sepsis, unspecified organism Status: Acute Assessment and Plan: Patient presents with fever found to be tachycardic with leukocytosis. Lactic normal. Received 1 dose of Rocephin in the ED. BCx positve for EColi that is pansensitive UCx growing 10-49K colonies of EColi that is pansensitive Meropenem started 08/04 since source is probably urinary but consider cholecystitis with impacted GS. UA not consistent with fulminant infection but repeat CT scan with contrast showing R>L bilateral pyelonephritis Still consider prostatitis given the fact he completed antibiotics a few days ago and now has recurrence. Consider also related to gallbladder disease with impacted stone but felt less likely. LFTs remaining normal and has minimal symptoms. However he was on narcotics prior to admission and here as well which may be blunting his symptoms. General surgery consulted and cholecystostomy tube attempted but unsuccessful b/c GB no longer distended Sepsis from urinary source. WBC climbing slowly Change meropenem to rocephin. Watch WBC. Repeat BCx (2) UTI (urinary tract infection): Qualifiers: Encounter type: subsequent encounter Indwelling urinary catheter type: indwelling urethral catheter Urinary tract infection type: catheter-associated UTI Qualified Code(s): T83.511D - Infection and inflammatory reaction due to indwelling urethral catheter, subsequent encounter; N39.0 - Urinary tract infection, site not specified Code(s): N39.0 - Urinary tract infection, site not specified Status: Acute Assessment and Plan: UA noted and may be UTI. UCx collected. Repeat CT noted and sepsis more likely related to UTI/Pyelonephritis. Rocephin given once then changed to meropenem UCx and BCx growing hogue-sensitive EColi. Change to Rocephin (3) Dilated gallbladder: Code(s): K82.8 - Other specified diseases of gallbladder Status: Acute Assessment and Plan: CT scan showing large GS in the GB neck. He has minimal abdominal pain with deep palpation but has been on narcotics General surgery consulted and appreciate their input Meropenem started. BP stable Cholecystostomy tube attempted but unsuccessful b/c GB no longer distended by repeat CT scan Plan for RUQ US and HIDA scan after patient improves Follow clinically. Change to Rocephin. Add Flagyl (4) CKD (chronic kidney disease): Qualifiers: Chronic kidney disease stage: unspecified stage Qualified Code(s): N18.9 - Chronic kidney disease, unspecified Code(s): N18.9 - Chronic kidney disease, unspecified Status: Chronic Assessment and Plan: Cr 1.5 on admission. He states he had normal renal function prior to last hospitalization. Repeat CT showing 2.8cm left renal cyst; no evidence of renal abscess. Old records reviewed showing BUN 45 and Cr 2 at time of discharge (07/25) Renal US no hydronephrosis or masses. Off IV fluids. Renal function stable at 1.4 Cr better than at last discharge but still elevated; could improve still once pyelnephritis improves Follow (5) BPH loc w urin obs/LUTS: Code(s): N40.1 - Benign prostatic hyperplasia with lower urinary tract symptoms Status: Acute Assessment and Plan: On Flomax at home. Has chronic indwelling Antonio that was changed out in the ED. BP stable. Continue Flomax. As above. Urology consulted (6) HTN (hypertension), benign: Code(s): I10 - Essential (primary) hypertension Status: Acute Assessment and Plan: Patient's blood pressure was elevated on admission related to above. Blood pressure stable. Follow (7) Atrial fibrillation: Code(s): I48.91 - Unspecified at
--- NOTE | 2023-08-07 15:19 | PM.PNGS ---
Progress Note: A&P Assessment and Plan (1) Pyelonephritis, acute: Code(s): N10 - Acute pyelonephritis Status: Acute Assessment and Plan: Bilateral pyelonephritis by CT imaging. Urine cx and blood cx growing hogue-sensitive EColi, on meropenem IV (2) Gram-negative bacteremia: Code(s): R78.81 - Bacteremia Status: Acute Assessment and Plan: Secondary to pyelonephritis. Blood cx and urine cx growing hogue-sensitive EColi. Cont meropenem. (3) Cholelithiasis: Qualifiers: Cholelithiasis location: gallbladder Cholecystitis presence: without cholecystitis Biliary obstruction: without biliary obstruction Qualified Code(s): K80.20 - Calculus of gallbladder without cholecystitis without obstruction Code(s): K80.20 - Calculus of gallbladder without cholecystitis without obstruction Status: Chronic Assessment and Plan: Large gallstone seen on CT in the neck of the gallbladder. Cholecystostomy tube unable to be placed as GB was no longer distended as was on CT scan. Not having any abdominal pain or tenderness. Sepsis resolving and more likely related to pyelonephritis. He is tolerating a heart healthy diet. Hopefully, if he continues to improve then we can plan to follow-up with him as an outpatient and discuss options and further work-up of his gallbladder once his sepsis and acute issues have improved. (4) Presence of indwelling urinary catheter: Code(s): Z96.0 - Presence of urogenital implants Status: Chronic Assessment and Plan: Urology consulted. (5) DNR (do not resuscitate): Code(s): Z66 - Do not resuscitate Status: Chronic (6) CKD (chronic kidney disease): Qualifiers: Chronic kidney disease stage: unspecified stage Qualified Code(s): N18.9 - Chronic kidney disease, unspecified Code(s): N18.9 - Chronic kidney disease, unspecified Status: Chronic Assessment and Plan: Stable Plan I have discussed the patient's case and plan of care with Dr. Davis. Subjective Subjective Date/Time Seen: 08/07/23 14:19 Interval history: 78yo male with AFib, ITP, BPH, psoriatic arthritis on Remicade and HTN here for fever and weakness. He was admitted for sepsis, UTI, and found to have a dilated gallbladder on imaging with a large gallstone. Percutaneous cholecystostomy tube was attempted but unsuccessful as his gallbladder was contracted and they were unable to place in Radiology. His diet has been advanced. Chart reviewed. Denies any abdominal pain, nausea, or vomiting. He is tolerating a diet without any issues. He complains of chronic low back pain. Exam Const: General: comfortable and no acute distress Orientation/consciousness: patient oriented x3 GI: Inspection: non-distended and other (dry and intact Band-Aid in RUQ from perc cholecystostomy tube attempt) GI Palp: Yes Soft to palpation, No Tenderness to palpation present (GI), No Guarding due to palpation present (GI) and No Rebound tenderness present Auscultation: normal bowel sounds Objective Data Vital Signs Vital Signs: Vital Signs - 24 hr 08/06/23 20:05 08/06/23 20:00 08/07/23 05:07 Temperature 97.7 F 98.0 F Pulse Rate 79 80 Respiratory Rate 17 17 Blood Pressure 132/58 L 134/62 Pulse Oximetry 95 95 Oxygen Delivery Room Air 08/07/23 08:52 08/07/23 10:55 08/07/23 08:00 Temperature Pulse Rate Respiratory Rate Blood Pressure Pulse Oximetry Oxygen Delivery Room Air Room Air Room Air 08/07/23 14:00 Temperature 99.7 F H Pulse Rate 97 Respiratory Rate 18 Blood Pressure 133/57 L Pulse Oximetry 97 Oxygen Delivery Intake/Output Intake/Output: Intake & Output 08/04/23 08/05/23 08/06/23 08/07/23 23:59 23:59 23:59 23:59 Intake Total 50 3230 3011 1990 Output Total 1550 2100 700 Balance 50 4836 424 6395 Meds/Results Medications: Active Medications Generic Name Dose Route Start Last Admin Trade
[2023-08-07] MEDS: FUROSEMIDE 20 MG TABLET PO (16:11)
--- NOTE | 2023-08-07 16:15 | WPDURCON ---
Assessment and Plan Assessment and plan (1) Sepsis: Qualifiers: Sepsis acute organ dysfunction status: unspecified Sepsis type: sepsis due to unspecified organism Qualified Code(s): A41.9 - Sepsis, unspecified organism Code(s): A41.9 - Sepsis, unspecified organism Status: Acute Assessment and Plan: Source of infection is E coli UTI/bacteremia. Continue IV ceftriaxone. Repeat blood cultures are pending (2) Pyelonephritis, acute: Code(s): N10 - Acute pyelonephritis Status: Acute Assessment and Plan: Bilateral pyelonephritis (R>L). Continue broad-spectrum IV antibiotics. If he fails to improve, has worsening fever or leukocytosis, will consider repeat imaging of urinary tract (3) Urinary retention: Code(s): R33.9 - Retention of urine, unspecified Status: Acute Assessment and Plan: Onset 07/2023 following hospital admission in [place]. Started on tamsulosin which he will continue. Continue with Antonio catheter at this time given acute infection (replaced on 08/04/2023). Plan for voiding trial as an outpatient following resolution of infection. (4) Mass of right kidney: Code(s): N28.89 - Other specified disorders of kidney and ureter Status: Chronic Assessment and Plan: 3.1 cm indeterminate right upper pole mass noted on initial CT 08/05/2023 which was not visualized on repeat CT later that day. This may in fact be findings due to bilateral pyelonephritis. Will need repeat imaging as an outpatient for further evaluation (5) Elevated PSA: Code(s): R97.20 - Elevated prostate specific antigen [PSA] Status: Acute Assessment and Plan: PSA from 10/2020 was 12.4, viewed from outside records. No more recent labs available for review. Would not repeat during admission given acute infection. He has outpatient follow up scheduled later this week for further evaluation. Urology Consult Note HPI Date Seen: 08/07/23 Requesting Physician: Sury Burnett DO Primary Care Provider: Brandi RussoMD Consult Narrative Narrative: Travis Sears is a 78 year old male with history of BPH and elevated PSA who is currently admitted for cholelithiasis and is being seen in consultation for pyelonephritis. Patient was admitted on 08/04/2023 for sepsis. He was recently hospitalized in [place] about 2 weeks ago for some cardiac issues and during that time developed urinary retention. He had a Antonio catheter placed during his hospitalization which he has continued. He was started on tamsulosin at that time which he continues. He returned back to the area about a week ago and presented to the emergency room for generalized weakness. His Antonio catheter was replaced on arrival, 08/04/2023. He had a CT on admission which demonstrated a 3.1 cm right upper pole renal mass as well as moderate bilateral perinephric stranding. A repeat CT was done later that day which demonstrated bilateral pyelonephritis, right greater than left. He had a renal ultrasound completed yesterday which was unremarkable with no renal mass or hydronephrosis. Urine culture collected on 08/04/23 was positive for E coli, as were blood cultures. Repeat blood cultures are pending at this time. He remains on ceftriaxone. His WBC is mildly elevated at 12.4 and his creatinine is slightly elevated at 1.4, no prior labs to establish baseline. He was febrile on admission but has remained afebrile for 24 hours. Reviewing patient's history, he has been noted to have elevated PSA up to 12.42 (10/25/2020). He had previously declined urologic evaluation of this but with onset of retention, became agreeable to urologic referral. He does have an appoint with Dr. Ortiz scheduled for 08/11/2023. Review of Systems Review of Systems: All systems reviewed & are unremarkable except as noted in HPI and below PMFSH Past Medical History Medical History (Revie
[2023-08-07 20:10] VITALS: BP 132/53; PULSE 79; RESP 17; TEMP 36.8; O2SAT 97
[2023-08-07] MEDS: TAMSULOSIN HCL 0.4 MG CAPSULE PO (21:15)
[2023-08-07] MEDS: metroNIDAZOLE 500 MG TABLET PO (21:15)
[2023-08-07] MEDS: cefTRIAXone 2 GM/NS 100 ML 2 GM/100 ML BAG IVPB (21:20)
[2023-08-08 04:23] VITALS: BP 129/51; PULSE 68; RESP 16; TEMP 36.7; O2SAT 96
[2023-08-08] MEDS: metroNIDAZOLE 500 MG TABLET PO ×3 (05:21→20:43)
[2023-08-08] MEDS: dilTIAZem HCL 60 MG TABLET PO ×3 (05:21→20:43)
[2023-08-08 05:48] LABS: Basophils Percent Auto 0.3 % (0.2-1.2); Eosinophils Absolute Auto 0.1 K/mm3 (0-0.3); Eosinophils Percent Auto 0.9 % (0-4.4); Hematocrit 29.2 % (42.0-52.0); Hemoglobin 9.5 g/dL (14.0-18.0); Immature Granulocyte Absolute 0.14 K/mm3 (0.00-0.031); Immature Granulocyte Percent A 1.2 % (0-0.5); Lymphocytes Percent Auto 26.7 % (18.3-44.2); Mean Corpuscular HGB Conc 32.5 g/dl (32-36); Mean Corpuscular Hemoglobin 29.1 pg (26-34); Mean Corpuscular Volume 89.3 fl (80-100); Mean Platelet Volume 8.9 fl (7.4-10.4); Monocytes Absolute Auto 0.9 K/mm3 (0.1-0.6); Monocytes Percent Auto 7.6 % (2.6-8.5); Neutrophils Absolute Auto 7.1 K/mm3 (1.3-6.7); Neutrophils Percent Auto 63.3 % (45.5-73.1); Platelet Count Result 239 k/mm3 (150-375); Red Blood Count 3.27 M/mm3 (4.6-6.20); Red Cell Distribution Width 17.1 % (11.5-14.5); White Blood Count 11.2 K/mm3 (4.5-10.0)
[2023-08-08 05:57] LABS: Albumin Level 2.4 g/dL (3.5-5.1); Anion Gap 0 mmol/L (4-12); Blood Urea Nitrogen 18 mg/dL (9-20); Carbon Dioxide 28 mmol/L (22-30); Chloride 98 mmol/L (98-107); Estimated CRCL calculation 42 ml/min; Estimated Glomerular Filt Rate 45; Glucose 108 mg/dL (65-110); Magnesium 1.9 mg/dL (1.6-2.3); Phosphorus 3.2 mg/dL (2.5-4.5); Potassium 3.4 mmol/L (3.4-5.0); Sodium 126 mmol/L (137-145)
[2023-08-08] MEDS: CYCLOBENZAPRINE HCL 5 MG TABLET PO (08:42)
[2023-08-08] MEDS: HYDROcodone/acetaminophen (*CRX) 7.5-325 MG TABLET 1 TAB PO ×3 (08:42→18:50)
[2023-08-08] MEDS: POTASSIUM CHLORIDE 20 MEQ PACKET (FOR LIQUID) 40 MEQ PO (08:43)
[2023-08-08] MEDS: FUROSEMIDE 20 MG TABLET PO (08:43)
[2023-08-08] MEDS: PANTOPRAZOLE 40 MG TABLET PO ×2 (08:43→20:43)
[2023-08-08 12:00] VITALS: BP 135/60; PULSE 83; RESP 15; TEMP 36.6; O2SAT 100
[2023-08-08 14:00] VITALS: BP 127/66; PULSE 90; RESP 15; TEMP 37.1; O2SAT 98
--- NOTE | 2023-08-08 14:40 | PM.IMPN ---
Progress Note: A&P Assessment and Plan (1) Sepsis: Qualifiers: Sepsis acute organ dysfunction status: unspecified Sepsis type: sepsis due to unspecified organism Qualified Code(s): A41.9 - Sepsis, unspecified organism Code(s): A41.9 - Sepsis, unspecified organism Status: Acute Assessment and Plan: Patient presents with fever found to be tachycardic with leukocytosis. Lactic normal. Received 1 dose of Rocephin in the ED. BCx positve for EColi that is pansensitive UCx growing 10-49K colonies of EColi that is pansensitive Meropenem started 08/04 since source is probably urinary but consider cholecystitis with impacted GS. UA not consistent with fulminant infection but repeat CT scan with contrast showing R>L bilateral pyelonephritis Still consider prostatitis given the fact he completed antibiotics a few days ago and now has recurrence vs UTI from chronic Antonio Consider also related to gallbladder disease with impacted stone but felt less likely. LFTs remaining normal and has minimal symptoms. However he was on narcotics prior to admission and here as well which may be blunting his symptoms. General surgery consulted and cholecystostomy tube attempted but unsuccessful b/c GB no longer distended Sepsis from urinary source. Meropenem changed to Rocephin and Flagyl 08/07/23. WBC trending down Watch WBC. Follow-up on repeat BCx (2) UTI (urinary tract infection): Qualifiers: Encounter type: subsequent encounter Indwelling urinary catheter type: indwelling urethral catheter Urinary tract infection type: catheter-associated UTI Qualified Code(s): T83.511D - Infection and inflammatory reaction due to indwelling urethral catheter, subsequent encounter; N39.0 - Urinary tract infection, site not specified Code(s): N39.0 - Urinary tract infection, site not specified Status: Acute Assessment and Plan: UA noted and may be UTI. UCx collected. Repeat CT noted and sepsis more likely related to UTI/Pyelonephritis. Rocephin given once then changed to meropenem UCx and BCx growing hogue-sensitive EColi. Continue Rocephin (3) Dilated gallbladder: Code(s): K82.8 - Other specified diseases of gallbladder Status: Acute Assessment and Plan: CT scan showing large GS in the GB neck. He has minimal abdominal pain with deep palpation but has been on narcotics General surgery consulted and appreciate their input Meropenem started. BP stable Cholecystostomy tube attempted but unsuccessful b/c GB no longer distended by repeat CT scan Plan for RUQ US and HIDA scan after patient improves Follow clinically. Change to Rocepaydenn and Flagyl (4) CKD (chronic kidney disease): Qualifiers: Chronic kidney disease stage: unspecified stage Qualified Code(s): N18.9 - Chronic kidney disease, unspecified Code(s): N18.9 - Chronic kidney disease, unspecified Status: Chronic Assessment and Plan: Cr 1.5 on admission. He states he had normal renal function prior to last hospitalization. Repeat CT showing 2.8cm left renal cyst; no evidence of renal abscess. Old records reviewed showing BUN 45 and Cr 2 at time of discharge (07/25) Renal US no hydronephrosis or masses. Off IV fluids. Renal function stable at 1.4 Cr better than at last discharge but still elevated; could improve still once pyelonephritis improves or new baseline Follow (5) BPH loc w urin obs/LUTS: Code(s): N40.1 - Benign prostatic hyperplasia with lower urinary tract symptoms Status: Acute Assessment and Plan: On Flomax at home. Has chronic indwelling Antonio that was changed out in the ED. BP stable. Continue Flomax. As above. Urology consulted (6) HTN (hypertension), benign: Code(s): I10 - Essential (primary) hypertension Status: Acute Assessment and Plan: Patient's blood pressure was elevated on admission related to above. Blood pressure stable. Cardi
--- NOTE | 2023-08-08 15:26 | WPDUROPN2 ---
Progress Note: A&P Assessment and Plan (1) Sepsis: Qualifiers: Sepsis acute organ dysfunction status: unspecified Sepsis type: sepsis due to unspecified organism Qualified Code(s): A41.9 - Sepsis, unspecified organism Code(s): A41.9 - Sepsis, unspecified organism Status: Acute Assessment and Plan: Source of infection is E coli UTI/bacteremia. Continue IV ceftriaxone. Repeat blood cultures are pending (2) Pyelonephritis, acute: Code(s): N10 - Acute pyelonephritis Status: Acute Assessment and Plan: Bilateral pyelonephritis (R>L). Continue broad-spectrum IV antibiotics. If he fails to improve, has worsening fever or leukocytosis, will consider repeat imaging of urinary tract Has had two UTIs in the past month which is likely related to urinary retention (3) Urinary retention: Code(s): R33.9 - Retention of urine, unspecified Status: Acute Assessment and Plan: Onset 07/2023 following hospital admission in [place]. Started on tamsulosin which he will continue. Continue with Lozada catheter at this time given acute infection (replaced on 08/04/2023). Plan for voiding trial as an outpatient following resolution of infection. (4) Mass of right kidney: Code(s): N28.89 - Other specified disorders of kidney and ureter Status: Chronic Assessment and Plan: 3.1 cm indeterminate right upper pole mass noted on initial CT 08/05/2023 which was not visualized on repeat CT later that day. This may in fact be findings due to bilateral pyelonephritis. Will need repeat imaging as an outpatient for further evaluation (5) Elevated PSA: Code(s): R97.20 - Elevated prostate specific antigen [PSA] Status: Acute Assessment and Plan: PSA from 10/2020 was 12.4, viewed from outside records. No more recent labs available for review. Would not repeat during admission given acute infection. He has outpatient follow up scheduled for further evaluation. Subjective Subjective Date/Time Seen: 08/08/23 15:26 Interval history: Travis reports feeling improved today. No issues with his lozada catheter which is draining clear yellow urine. He denies pelvic pain or perineal pain. No suprapubic pain or flank pain. Reports chronic low back pain due to DJD. WBC 11.2. Creatinine unchanged at 1.5. Review of Systems Review of Systems: All systems reviewed & are unremarkable except as noted in HPI and below Exam Narrative: General: Awake, alert, comfortable, no acute distress HEENT: Normocephalic, atraumatic, sclerae anicteric Respiratory: Normal respiratory effort, no accessory muscle use Abdomen: Nondistended, soft, nontender : Lozada catheter draining clear yellow urine Skin: Normal coloration, warm and dry Neurologic: No focal neuro deficits noted Psychiatric: Appropriate mood and affect, judgment and insight intact Objective Data Vital Signs Vital Signs: Vital Signs - 24 hr 08/07/23 20:10 08/07/23 20:00 08/08/23 04:23 Temperature 98.2 F 98.0 F Pulse Rate 79 68 Respiratory Rate 17 16 Blood Pressure 132/53 L 129/51 L Pulse Oximetry 97 96 Oxygen Delivery Room Air 08/08/23 11:06 08/08/23 12:00 08/08/23 14:00 Temperature 97.9 F 98.7 F Pulse Rate 83 90 Respiratory Rate 15 15 Blood Pressure 135/60 127/66 Pulse Oximetry 100 98 Oxygen Delivery Room Air Intake/Output Intake/Output: Intake & Output 08/05/23 08/06/23 08/07/23 08/08/23 23:59 23:59 23:59 23:59 Intake Total 3230 3011 3112 390 Output Total 1550 2100 1850 2850 Balance 7813 145 4476 -2460 Meds/Results Medications: Active Medications Generic Name Dose Route Start Last Admin Trade Name Freq PRN Reason Stop Dose Admin Acetaminophen 650 mg 08/05/23 14:13 08/06/23 12:18 Acetaminophen 325 Mg Tablet PO 650 mg Q4H PRN Administration Mild Pain (1-3) Or Fever Hydrocodone Bitart/Acetaminophen 1 tab 08/07/23
[2023-08-08] MEDS: MORPHINE SULFATE (*CRX) 2 MG/ML INJ IV PUSH ×2 (16:01→21:18)
[2023-08-08 16:13] LABS: Creatinine Urine 38.6 mg/dL
[2023-08-08 16:31] LABS: Sodium Urine Random 118 meq/L
[2023-08-08 16:47] LABS: Eosinophil Urine Rare % (None Seen); Urine Eos QC 2nd Tech Confirmed
[2023-08-08 17:20] LABS: Anion Gap 4 mmol/L (4-12); Blood Urea Nitrogen 22 mg/dL (9-20); Calcium 8.2 mg/dL (8.4-10.2); Carbon Dioxide 26 mmol/L (22-30); Chloride 96 mmol/L (98-107); Creatine Kinase 29 U/L (55-170); Estimated CRCL calculation 39 ml/min; Estimated Glomerular Filt Rate 42; Glucose 135 mg/dL (65-110); Sodium 126 mmol/L (137-145)
[2023-08-08 17:23] LABS: Complement C3 88 mg/dL (88-165)
[2023-08-08] MEDS: TAMSULOSIN HCL 0.4 MG CAPSULE PO (20:43)
[2023-08-08] MEDS: cefTRIAXone 2 GM/NS 100 ML 2 GM/100 ML BAG IVPB (20:46)
[2023-08-08 21:01] VITALS: BP 117/54; PULSE 81; RESP 18; TEMP 36.7; O2SAT 98
[2023-08-09] MEDS: HYDROcodone/acetaminophen (*CRX) 7.5-325 MG TABLET 1 TAB PO ×4 (00:54→20:02)
[2023-08-09 05:22] LABS: Basophils Absolute Auto 0.1 K/mm3 (0.0-0.1); Basophils Percent Auto 0.4 % (0.2-1.2); Eosinophils Absolute Auto 0.1 K/mm3 (0-0.3); Eosinophils Percent Auto 1.1 % (0-4.4); Hematocrit 29.8 % (42.0-52.0); Hemoglobin 9.5 g/dL (14.0-18.0); Immature Granulocyte Absolute 0.14 K/mm3 (0.00-0.031); Immature Granulocyte Percent A 1.2 % (0-0.5); Lymphocytes Absolute Auto 2.84 K/mm3 (0.9-3.2); Mean Corpuscular HGB Conc 31.9 g/dl (32-36); Mean Corpuscular Hemoglobin 28.7 pg (26-34); Monocytes Absolute Auto 0.9 K/mm3 (0.1-0.6); Monocytes Percent Auto 8.1 % (2.6-8.5); Neutrophils Absolute Auto 7.3 K/mm3 (1.3-6.7); Neutrophils Percent Auto 64.2 % (45.5-73.1); Platelet Count Result 218 k/mm3 (150-375); Red Blood Count 3.31 M/mm3 (4.6-6.20); Red Cell Distribution Width 17.2 % (11.5-14.5); White Blood Count 11.4 K/mm3 (4.5-10.0)
[2023-08-09] MEDS: metroNIDAZOLE 500 MG TABLET PO ×3 (05:26→20:02)
[2023-08-09] MEDS: dilTIAZem HCL 60 MG TABLET PO ×3 (05:26→20:03)
[2023-08-09 05:27] VITALS: BP 106/50; PULSE 77; RESP 20; TEMP 36.3; O2SAT 99
[2023-08-09 05:40] LABS: Albumin Level 2.3 g/dL (3.5-5.1); Anion Gap 1 mmol/L (4-12); Blood Urea Nitrogen 21 mg/dL (9-20); Calcium 8.3 mg/dL (8.4-10.2); Carbon Dioxide 30 mmol/L (22-30); Chloride 97 mmol/L (98-107); Estimated CRCL calculation 39 ml/min; Estimated Glomerular Filt Rate 42; Glucose 107 mg/dL (65-110); Magnesium 1.9 mg/dL (1.6-2.3); Phosphorus 3.5 mg/dL (2.5-4.5); Potassium 3.9 mmol/L (3.4-5.0); Sodium 128 mmol/L (137-145)
[2023-08-09] MEDS: PANTOPRAZOLE 40 MG TABLET PO ×2 (08:29→20:03)
[2023-08-09 08:39] VITALS: RESP 20; O2SAT 99
--- NOTE | 2023-08-09 09:34 | WPDUROPN2 ---
Progress Note: A&P Assessment and Plan (1) Sepsis: Qualifiers: Sepsis acute organ dysfunction status: unspecified Sepsis type: sepsis due to unspecified organism Qualified Code(s): A41.9 - Sepsis, unspecified organism Code(s): A41.9 - Sepsis, unspecified organism Status: Acute Assessment and Plan: Source of infection is E coli UTI/bacteremia. Continue IV ceftriaxone. Repeat blood cultures are pending (2) Pyelonephritis, acute: Code(s): N10 - Acute pyelonephritis Status: Acute Assessment and Plan: Bilateral pyelonephritis (R>L). Continue broad-spectrum IV antibiotics. Clinically appears to be improving with stable WBC, remaining afebrile. Has had two UTIs in the past month which is likely related to urinary retention (3) Urinary retention: Code(s): R33.9 - Retention of urine, unspecified Status: Acute Assessment and Plan: Onset 07/2023 following hospital admission in [place]. Started on tamsulosin which he will continue. Continue with Lozada catheter at this time given acute infection (replaced on 08/04/2023). Plan for voiding trial as an outpatient following resolution of infection. (4) Mass of right kidney: Code(s): N28.89 - Other specified disorders of kidney and ureter Status: Chronic Assessment and Plan: 3.1 cm indeterminate right upper pole mass noted on initial CT without contrast 08/05/2023 which was not visualized on repeat CT with contrast later that day. This may in fact be findings due to pyelonephritis. Will need repeat imaging as an outpatient for further evaluation (5) Elevated PSA: Code(s): R97.20 - Elevated prostate specific antigen [PSA] Status: Acute Assessment and Plan: PSA from 10/2020 was 12.4, viewed from outside records. No more recent labs available for review. Would not repeat during admission given acute infection. He has outpatient follow up scheduled for further evaluation. Subjective Subjective Date/Time Seen: 08/09/23 09:34 Interval history: Travis is feeling well today. Complains of chronic back pain. No suprapubic pain, flank pain. Tolerating his diet. No N/V/F/C. No issues with lozada catheter - draining clear yellow urine. WBC unchanged, 11.4. Creatinine 1.6. He is afebrile and vital signs are stable. Review of Systems Review of Systems: All systems reviewed & are unremarkable except as noted in HPI and below Exam Narrative: General: Awake, alert, comfortable, no acute distress HEENT: Normocephalic, atraumatic, sclerae anicteric Respiratory: Normal respiratory effort, no accessory muscle use Abdomen: Nondistended, soft, nontender : Lozada catheter draining clear yellow urine Skin: Normal coloration, warm and dry Neurologic: No focal neuro deficits noted Psychiatric: Appropriate mood and affect, judgment and insight intact Objective Data Vital Signs Vital Signs: Vital Signs - 24 hr 08/08/23 11:06 08/08/23 12:00 08/08/23 14:00 Temperature 97.9 F 98.7 F Pulse Rate 83 90 Respiratory Rate 15 15 Blood Pressure 135/60 127/66 Pulse Oximetry 100 98 Oxygen Delivery Room Air 08/08/23 19:31 08/08/23 21:01 08/09/23 05:27 Temperature 98.0 F 97.4 F L Pulse Rate 81 77 Respiratory Rate 18 20 Blood Pressure 117/54 L 106/50 L Pulse Oximetry 98 99 Oxygen Delivery Room Air 08/09/23 08:39 Temperature Pulse Rate Respiratory Rate 20 Blood Pressure Pulse Oximetry 99 Oxygen Delivery Room Air Intake/Output Intake/Output: Intake & Output 08/06/23 08/07/23 08/08/23 08/09/23 23:59 23:59 23:59 23:59 Intake Total 3011 3212 1270 540 Output Total 2100 1850 3400 900 Balance 911 1362 -2130 -360 Meds/Results Medications: Active Medications Generic Name Dose Route Start Last Admin Trade Name Jules PRN Reason Stop Dose Admin Acetaminophen 650 mg 08/05/23 14:13 08/06/23 12:18 Acetaminophen 325 Mg Tablet
--- NOTE | 2023-08-09 11:14 | PCPTNOTE ---
Patient refused treatment this session due to patient just going for a walk with family and nursing.
--- NOTE | 2023-08-09 13:25 | PM.IMPN ---
Progress Note: A&P Assessment and Plan (1) Sepsis: Qualifiers: Sepsis acute organ dysfunction status: unspecified Sepsis type: sepsis due to unspecified organism Qualified Code(s): A41.9 - Sepsis, unspecified organism Code(s): A41.9 - Sepsis, unspecified organism Status: Acute Assessment and Plan: Patient presents with fever found to be tachycardic with leukocytosis. Lactic normal. Received 1 dose of Rocephin in the ED. BCx positve for EColi that is pansensitive UCx growing 10-49K colonies of EColi that is pansensitive Meropenem started 08/04 since source is probably urinary but consider cholecystitis with impacted GS. UA not consistent with fulminant infection but repeat CT scan with contrast showing R>L bilateral pyelonephritis Meropenem changed to Rocephin and Flagyl 08/07/23. WBC trending down Watch WBC. Follow-up on repeat BCx Awaiting rpt BC Wcc trending down continue present care (2) UTI (urinary tract infection): Qualifiers: Encounter type: subsequent encounter Indwelling urinary catheter type: indwelling urethral catheter Urinary tract infection type: catheter-associated UTI Qualified Code(s): T83.511D - Infection and inflammatory reaction due to indwelling urethral catheter, subsequent encounter; N39.0 - Urinary tract infection, site not specified Code(s): N39.0 - Urinary tract infection, site not specified Status: Acute Assessment and Plan: UA noted and may be UTI. UCx collected. Repeat CT noted and sepsis more likely related to UTI/Pyelonephritis. Rocephin given once then changed to meropenem UCx and BCx growing hogue-sensitive EColi. Continue Rocephin (3) Dilated gallbladder: Code(s): K82.8 - Other specified diseases of gallbladder Status: Acute Assessment and Plan: CT scan showing large GS in the GB neck. He has minimal abdominal pain with deep palpation but has been on narcotics General surgery consulted and appreciate their input Meropenem started. BP stable Cholecystostomy tube attempted but unsuccessful b/c GB no longer distended by repeat CT scan Plan for RUQ US and HIDA scan after patient improves Change to Rocephin and Flagyl (4) CKD (chronic kidney disease): Qualifiers: Chronic kidney disease stage: unspecified stage Qualified Code(s): N18.9 - Chronic kidney disease, unspecified Code(s): N18.9 - Chronic kidney disease, unspecified Status: Chronic Assessment and Plan: Cr 1.5 on admission. He states he had normal renal function prior to last hospitalization. Repeat CT showing 2.8cm left renal cyst; no evidence of renal abscess. Old records reviewed showing BUN 45 and Cr 2 at time of discharge (07/25) Renal US no hydronephrosis or masses. Off IV fluids. Renal function stable at 1.6 while is baseline (5) BPH loc w urin obs/LUTS: Code(s): N40.1 - Benign prostatic hyperplasia with lower urinary tract symptoms Status: Acute Assessment and Plan: On Flomax at home. Has chronic indwelling Lozada that was changed out in the ED. BP stable. Continue Flomax. urology on board continue lozada or now PSA is 12 as per urology note from 10/2020 ok to rpt (6) HTN (hypertension), benign: Code(s): I10 - Essential (primary) hypertension Status: Acute Assessment and Plan: Patient's blood pressure was elevated on admission related to above. Blood pressure stable. Cardizem resumed. (7) Atrial fibrillation: Code(s): I48.91 - Unspecified atrial fibrillation Status: Acute Assessment and Plan: Patient with what sounds like a brief episode of AFIb and converted easily at the outside hospital. At the outside hospital, he had elevated troponins consistent with type 2 demand ischemia. Patient was noted to have AFib with RVR on presentation given Cardizem and converted to normal rhythm. His echocardiogram showed EF of 60-65%, mild TR
--- NOTE | 2023-08-09 13:57 | PCPTNOTE ---
Patient refused treatment this session due to just getting back to bed with nursing and did not want to get back up.
[2023-08-09 14:11] VITALS: BP 117/55; PULSE 99; RESP 16; TEMP 36.8; O2SAT 90
[2023-08-09 20:00] VITALS: PULSE 82; RESP 18; O2SAT 97
[2023-08-09] MEDS: cefTRIAXone 2 GM/NS 100 ML 2 GM/100 ML BAG IVPB (20:02)
[2023-08-09] MEDS: TAMSULOSIN HCL 0.4 MG CAPSULE PO (20:03)
[2023-08-09] MEDS: CYCLOBENZAPRINE HCL 5 MG TABLET PO (20:03)
[2023-08-09 20:53] VITALS: BP 110/52; PULSE 82; RESP 18; TEMP 37; O2SAT 97
[2023-08-10] MEDS: HYDROcodone/acetaminophen (*CRX) 7.5-325 MG TABLET 1 TAB PO ×4 (00:03→20:50)
[2023-08-10] MEDS: dilTIAZem HCL 60 MG TABLET PO ×3 (05:04→20:50)
[2023-08-10] MEDS: metroNIDAZOLE 500 MG TABLET PO (05:04)
[2023-08-10 05:17] VITALS: BP 118/51; PULSE 68; RESP 18; TEMP 37.1; O2SAT 98
[2023-08-10 05:35] LABS: Anion Gap 2 mmol/L (4-12); Blood Urea Nitrogen 24 mg/dL (9-20); Calcium 8.7 mg/dL (8.4-10.2); Carbon Dioxide 29 mmol/L (22-30); Chloride 97 mmol/L (98-107); Estimated CRCL calculation 35 ml/min; Estimated Glomerular Filt Rate 37; Glucose 103 mg/dL (65-110); Potassium 3.9 mmol/L (3.4-5.0); Sodium 128 mmol/L (137-145)
[2023-08-10 06:05] LABS: Prostate Specific Antigen 7.2 ng/mL (< OR = 4.0)
[2023-08-10] MEDS: PANTOPRAZOLE 40 MG TABLET PO ×2 (08:04→20:50)
[2023-08-10 08:08] VITALS: RESP 18; O2SAT 98
--- NOTE | 2023-08-10 11:05 | PC.NURSE ---
On 08/10/23, the student, [Liza Mccormick], provided care and completed [facility] documentation on this patient. I have reviewed the student's documentation and agree with the findings.
--- NOTE | 2023-08-10 12:24 | PM.IMPN ---
Progress Note: A&P Assessment and Plan (1) Sepsis: Qualifiers: Sepsis acute organ dysfunction status: unspecified Sepsis type: sepsis due to unspecified organism Qualified Code(s): A41.9 - Sepsis, unspecified organism Code(s): A41.9 - Sepsis, unspecified organism Status: Acute Assessment and Plan: Patient presents with fever found to be tachycardic with leukocytosis. Lactic normal. Received 1 dose of Rocephin in the ED. BCx positve for EColi that is pansensitive UCx growing 10-49K colonies of EColi that is pansensitive Meropenem started 08/04 since source is probably urinary but consider cholecystitis with impacted GS. UA not consistent with fulminant infection but repeat CT scan with contrast showing R>L bilateral pyelonephritis Meropenem changed to Rocephin and Flagyl 08/07/23. WBC trending down Wcc trending down continue present care Rpt blood cultures are negative transition to oral Augmentin (2) UTI (urinary tract infection): Qualifiers: Encounter type: subsequent encounter Indwelling urinary catheter type: indwelling urethral catheter Urinary tract infection type: catheter-associated UTI Qualified Code(s): T83.511D - Infection and inflammatory reaction due to indwelling urethral catheter, subsequent encounter; N39.0 - Urinary tract infection, site not specified Code(s): N39.0 - Urinary tract infection, site not specified Status: Acute Assessment and Plan: UA noted and may be UTI. UCx collected. Repeat CT noted and sepsis more likely related to UTI/Pyelonephritis. Rocephin given once then changed to meropenem UCx and BCx growing hogue-sensitive EColi. Rpt blood cultures are negative transition to oral Augmentin (3) Dilated gallbladder: Code(s): K82.8 - Other specified diseases of gallbladder Status: Acute Assessment and Plan: CT scan showing large GS in the GB neck. He has minimal abdominal pain with deep palpation but has been on narcotics General surgery consulted and appreciate their input Meropenem started. BP stable Cholecystostomy tube attempted but unsuccessful b/c GB no longer distended by repeat CT scan Plan for RUQ US and HIDA scan after patient improves Change to Rocephin and Flagyl Rpt blood cultures are negative transition to oral Augmentin (4) CKD (chronic kidney disease): Qualifiers: Chronic kidney disease stage: unspecified stage Qualified Code(s): N18.9 - Chronic kidney disease, unspecified Code(s): N18.9 - Chronic kidney disease, unspecified Status: Chronic Assessment and Plan: Cr 1.5 on admission. He states he had normal renal function prior to last hospitalization. Repeat CT showing 2.8cm left renal cyst; no evidence of renal abscess. Old records reviewed showing BUN 45 and Cr 2 at time of discharge (07/25) Renal US no hydronephrosis or masses. Off IV fluids. Renal function stable at 1.8 encourage oral fluids (5) BPH loc w urin obs/LUTS: Code(s): N40.1 - Benign prostatic hyperplasia with lower urinary tract symptoms Status: Acute Assessment and Plan: On Flomax at home. Has chronic indwelling Lozada that was changed out in the ED. BP stable. Continue Flomax. urology on board continue lozada or now PSA is 12 as per urology note from 10/2020 ok to rpt voiding trail as outpatient continue with lozada (6) HTN (hypertension), benign: Code(s): I10 - Essential (primary) hypertension Status: Acute Assessment and Plan: Patient's blood pressure was elevated on admission related to above. Blood pressure stable. Cardizem resumed. (7) Atrial fibrillation: Code(s): I48.91 - Unspecified atrial fibrillation Status: Acute Assessment and Plan: Patient with what sounds like a brief episode of AFIb and converted easily at the outside hospital. At the outside hospital, he had elevated troponins consistent wit
[2023-08-10 14:00] VITALS: BP 124/55; PULSE 98; RESP 18; TEMP 36.4; O2SAT 97
--- NOTE | 2023-08-10 14:31 | PC.NURSE ---
On 08/10/23, the student, [Ruddy Swenson], provided care and completed [facility] documentation on this patient. I have reviewed the student's documentation and agree with the findings.
--- NOTE | 2023-08-10 16:14 | WPDUROPN2 ---
Progress Note: A&P Assessment and Plan (1) Sepsis: Qualifiers: Sepsis acute organ dysfunction status: unspecified Sepsis type: sepsis due to unspecified organism Qualified Code(s): A41.9 - Sepsis, unspecified organism Code(s): A41.9 - Sepsis, unspecified organism Status: Acute Assessment and Plan: Source of infection is E coli UTI/bacteremia. Continue antibiotics. Repeat blood cultures are pending, negative to date (2) Pyelonephritis, acute: Code(s): N10 - Acute pyelonephritis Status: Acute Assessment and Plan: Bilateral pyelonephritis (R>L). Clinically appears to be improving with stable WBC, remaining afebrile. Transitioned to oral abx and doing well. Would continue antibiotics for 2 wek duration. Has had two UTIs in the past month which is likely related to urinary retention (3) Urinary retention: Code(s): R33.9 - Retention of urine, unspecified Status: Acute Assessment and Plan: Onset 07/2023 following hospital admission in [place]. Started on tamsulosin which he will continue. Continue with Lozada catheter at this time given acute infection (replaced on 08/04/2023). Plan for voiding trial as an outpatient following resolution of infection. (4) Mass of right kidney: Code(s): N28.89 - Other specified disorders of kidney and ureter Status: Chronic Assessment and Plan: 3.1 cm indeterminate right upper pole mass noted on initial CT without contrast 08/05/2023 which was not visualized on repeat CT with contrast later that day. This may in fact be findings due to pyelonephritis. Will need repeat imaging as an outpatient for further evaluation (5) Elevated PSA: Code(s): R97.20 - Elevated prostate specific antigen [PSA] Status: Acute Assessment and Plan: PSA from 10/2020 was 12.4, viewed from outside records. No more recent labs available for review. Would not repeat during admission given acute infection. He has outpatient follow up scheduled for further evaluation. Subjective Subjective Date/Time Seen: 08/10/23 16:14 Interval history: Doing well other than persistent back pain. Tolerating lozada. No other concerns. No N/V/F/C. Tolerating diet. Review of Systems Review of Systems: All systems reviewed & are unremarkable except as noted in HPI and below Exam Narrative: General: Awake, alert, comfortable, no acute distress HEENT: Normocephalic, atraumatic, sclerae anicteric Respiratory: Normal respiratory effort, no accessory muscle use Abdomen: Nondistended, soft, nontender : Lozada catheter draining clear yellow urine Skin: Normal coloration, warm and dry Neurologic: No focal neuro deficits noted Psychiatric: Appropriate mood and affect, judgment and insight intact Objective Data Vital Signs Vital Signs: Vital Signs - 24 hr 08/09/23 20:53 08/09/23 20:00 08/10/23 05:17 Temperature 98.6 F 98.7 F Pulse Rate 82 82 68 Respiratory Rate 18 18 18 Blood Pressure 110/52 L 118/51 L Pulse Oximetry 97 97 98 Oxygen Delivery Room Air 08/10/23 08:08 08/10/23 14:00 Temperature 97.5 F L Pulse Rate 98 Respiratory Rate 18 18 Blood Pressure 124/55 L Pulse Oximetry 98 97 Oxygen Delivery Room Air Intake/Output Intake/Output: Intake & Output 08/07/23 08/08/23 08/09/23 08/10/23 23:59 23:59 23:59 23:59 Intake Total 3212 1270 900 300 Output Total 1850 3400 1350 650 Balance 1362 -2130 -450 -350 Meds/Results Medications: Active Medications Generic Name Dose Route Start Last Admin Trade Name Freq PRN Reason Stop Dose Admin Acetaminophen 650 mg 08/05/23 14:13 08/06/23 12:18 Acetaminophen 325 Mg Tablet PO 650 mg Q4H PRN Administration Mild Pain (1-3) Or Fever Hydrocodone Bitart/Acetaminophen 1 tab 08/07/23 15:15 08/10/23 12:57 Hydrocodone/Acetaminophen (*Crx) 7.5-325 Mg Tablet PO 1 tab Q4H PRN Administration Pain Rated 6-
[2023-08-10 16:39] LABS: Complement Total CH50 44 U/mL (31-60)
[2023-08-10 20:00] VITALS: PULSE 77; RESP 18; O2SAT 97
[2023-08-10 20:38] VITALS: BP 128/52; PULSE 77; RESP 18; TEMP 36.6; O2SAT 97
[2023-08-10] MEDS: AMOXICILLIN/CLAVULANATE K 875-125 MG TAB 1 TABLET PO (20:50)
[2023-08-10] MEDS: TAMSULOSIN HCL 0.4 MG CAPSULE PO (20:50)
[2023-08-10] MEDS: CYCLOBENZAPRINE HCL 5 MG TABLET PO (20:50)
[2023-08-11] MEDS: dilTIAZem HCL 60 MG TABLET PO ×3 (05:08→21:51)
[2023-08-11] MEDS: HYDROcodone/acetaminophen (*CRX) 7.5-325 MG TABLET 1 TAB PO ×5 (05:14→21:52)
[2023-08-11 06:29] LABS: Hemoglobin 9.4 g/dL (14.0-18.0); Mean Corpuscular HGB Conc 31.3 g/dl (32-36); Mean Corpuscular Hemoglobin 28.7 pg (26-34); Mean Corpuscular Volume 91.5 fl (80-100); Mean Platelet Volume 9.2 fl (7.4-10.4); Platelet Count Result 238 k/mm3 (150-375); Red Blood Count 3.28 M/mm3 (4.6-6.20); Red Cell Distribution Width 16.9 % (11.5-14.5); White Blood Count 11.3 K/mm3 (4.5-10.0)
[2023-08-11 06:30] VITALS: BP 129/59; PULSE 74; RESP 14; TEMP 36.4; O2SAT 98
[2023-08-11 06:37] LABS: Anion Gap -1 mmol/L (4-12); Blood Urea Nitrogen 20 mg/dL (9-20); Calcium 8.7 mg/dL (8.4-10.2); Carbon Dioxide 32 mmol/L (22-30); Chloride 99 mmol/L (98-107); Estimated CRCL calculation 39 ml/min; Estimated Glomerular Filt Rate 42; Glucose 96 mg/dL (65-110); Potassium 3.9 mmol/L (3.4-5.0); Sodium 130 mmol/L (137-145)
[2023-08-11] MEDS: AMOXICILLIN/CLAVULANATE K 875-125 MG TAB 1 TABLET PO ×2 (09:12→20:47)
[2023-08-11] MEDS: PANTOPRAZOLE 40 MG TABLET PO ×2 (09:12→20:47)
--- NOTE | 2023-08-11 09:31 | PCPTNOTE ---
Attempted therapy at this time however patient refused services stating he is not up for it at this time because he is tired and just got back into bed. Will attempted after a later time.
--- NOTE | 2023-08-11 09:49 | PM.IMPN ---
Progress Note: A&P Assessment and Plan (1) Sepsis: Qualifiers: Sepsis acute organ dysfunction status: unspecified Sepsis type: sepsis due to unspecified organism Qualified Code(s): A41.9 - Sepsis, unspecified organism Code(s): A41.9 - Sepsis, unspecified organism Status: Acute Assessment and Plan: Source of infection is E coli UTI/bacteremia. Continue Augmentin for 2 weeks 2nd set of blood cultures are showing no growth to date (2) Pyelonephritis, acute: Code(s): N10 - Acute pyelonephritis Status: Acute Assessment and Plan: Will continue with Augmentin for 2 weeks Keep Lozada catheter until follow-up appointment with Urology (3) Urinary retention: Code(s): R33.9 - Retention of urine, unspecified Status: Acute Assessment and Plan: See above plan of care (4) Mass of right kidney: Code(s): N28.89 - Other specified disorders of kidney and ureter Status: Chronic Assessment and Plan: 3.1 cm indeterminate right upper pole mass noted on initial CT without contrast 08/05/2023 which was not visualized on repeat CT with contrast later that day. This may in fact be findings due to pyelonephritis. Will need repeat imaging as an outpatient for further evaluation (5) Elevated PSA: Code(s): R97.20 - Elevated prostate specific antigen [PSA] Status: Acute Assessment and Plan: PSA from 10/2020 was 12.4, viewed from outside records. No more recent labs available for review. Would not repeat during admission given acute infection. He has outpatient follow up scheduled for further evaluation. Time Spent With Patient Time with patient: 25 - 35 minutes Subjective Date/time seen: 08/11/23 09:49 Interval history: This is a 78 year old male who presented to the hospital on 08/04/23 with complaints of weakness. Patient was recently hospitalized 3 weeks ago in [facility] for UTI, sepsis, ARF, new onset A fib. He was found to have urinary retention and a lozada was placed. During that admission he was given IVIG, high dose steroids, multiple platelet infusion and started on Cardizem. He also finished a course of Augmentin for UTI. After finishing the course of Augmentin, he became increasing weak, fatigued, and developed a fever. In the ED, he was febrile to 100.6, tachycardic 117 with BP as high as 204/169. WBC 16.5K with Hgb 8.2 and plt 359K. Rare schistocytes noted. Sodium 130 and BUN 24 and Cr 1.5. LFTs normal. UA showing 1+ protein, 2+ LE, and 21-50 WBC. Influenza, RSV and COVID PCR negative. CXR showing subsegmental left basilar atelectasis/consolidation. CT Abd/plevis showing small bilateral pleural effusion and atelectasis, dilated GB with GS in the neck of the GB and perinephric stranding with 3.1cm right upper pole renal mass. Also noted to have trace ascites and moderate body wall edema. BCx obtained. EKG showing sinus rhythm with nonspecific ST-T wave changes. A second CT of the abdomen and pelvis was performed and shown bilateral pyelonephritis, right worse than left. Renal ultrasound was negative. Venous Doppler was also negative for DVT. Blood and urine cultures showing E coli. New set of blood cultures are showing no growth to date. Urology was consulted and following. He denies any new complaints today. Labs today show a white blood cell count of 11.3, hemoglobin 9.4, sodium is 130, creatinine 1.6. He was changed to oral antibiotics yesterday and will remain on oral antibiotics for the next 2 weeks per Urology. He will also have to keep catheter in until the follow-up appointment. Review of Systems Review of Systems: All systems reviewed & are unremarkable except as noted in HPI and below Objective Data Vital Signs Vital Signs: Vital Signs - 24 hr 08/10/23 14:00 08/10/23 20:38 08/10/23 20:00 Temperature 97.5 F L 97.9 F Pulse Rate 98 77 77 Respiratory Rate 18 18 18 Blood Pressure 124/55 L 128/52 L Pulse
--- NOTE | 2023-08-11 10:33 | WPDUROPN2 ---
Progress Note: A&P Assessment and Plan (1) Sepsis: Qualifiers: Sepsis acute organ dysfunction status: unspecified Sepsis type: sepsis due to unspecified organism Qualified Code(s): A41.9 - Sepsis, unspecified organism Code(s): A41.9 - Sepsis, unspecified organism Status: Acute Assessment and Plan: Source of infection is E coli UTI/bacteremia. Continue antibiotics. Repeat blood cultures are pending, negative to date (2) Pyelonephritis, acute: Code(s): N10 - Acute pyelonephritis Status: Acute Assessment and Plan: Bilateral pyelonephritis (R>L). Clinically appears to be improving with stable WBC, remaining afebrile. Transitioned to oral abx and doing well. Would continue antibiotics for 2 week duration. Has had two UTIs in the past month which is likely related to urinary retention (3) Urinary retention: Code(s): R33.9 - Retention of urine, unspecified Status: Acute Assessment and Plan: Onset 07/2023 following hospital admission in [place]. Started on tamsulosin which he will continue. Continue with Lozada catheter at this time given acute infection (replaced on 08/04/2023). Plan for voiding trial as an outpatient following resolution of infection. (4) Mass of right kidney: Code(s): N28.89 - Other specified disorders of kidney and ureter Status: Chronic Assessment and Plan: 3.1 cm indeterminate right upper pole mass noted on initial CT without contrast 08/05/2023 which was not visualized on repeat CT with contrast later that day. This may in fact be findings due to pyelonephritis. Will need repeat imaging as an outpatient for further evaluation (5) Elevated PSA: Code(s): R97.20 - Elevated prostate specific antigen [PSA] Status: Acute Assessment and Plan: PSA from 10/2020 was 12.4, viewed from outside records. No more recent labs available for review. Would not repeat during admission given acute infection. He has outpatient follow up scheduled for further evaluation. Plan Okay for discharge from urologic standpoint. Will discharge with lozada and follow up in the office for removal. Subjective Subjective Date/Time Seen: 08/11/23 10:33 Interval history: Doing well today. Eager to return home. Lozada in place, draining clear yellow urine. He has no concerns. Review of Systems Review of Systems: All systems reviewed & are unremarkable except as noted in HPI and below Exam Narrative: General: Awake, alert, comfortable, no acute distress HEENT: Normocephalic, atraumatic, sclerae anicteric Respiratory: Normal respiratory effort, no accessory muscle use Abdomen: Nondistended, soft, nontender : Lozada catheter draining clear yellow urine Skin: Normal coloration, warm and dry Neurologic: No focal neuro deficits noted Psychiatric: Appropriate mood and affect, judgment and insight intact Objective Data Vital Signs Vital Signs: Vital Signs - 24 hr 08/10/23 14:00 08/10/23 20:38 08/10/23 20:00 Temperature 97.5 F L 97.9 F Pulse Rate 98 77 77 Respiratory Rate 18 18 18 Blood Pressure 124/55 L 128/52 L Pulse Oximetry 97 97 97 Oxygen Delivery Room Air 08/11/23 06:30 Temperature 97.6 F Pulse Rate 74 Respiratory Rate 14 Blood Pressure 129/59 L Pulse Oximetry 98 Oxygen Delivery Intake/Output Intake/Output: Intake & Output 08/08/23 08/09/23 08/10/23 08/11/23 23:59 23:59 23:59 23:59 Intake Total 1270 900 780 510 Output Total 3400 1350 1350 1000 Balance -2130 -450 -570 -490 Meds/Results Medications: Active Medications Generic Name Dose Route Start Last Admin Trade Name Freq PRN Reason Stop Dose Admin Acetaminophen 650 mg 08/05/23 14:13 08/06/23 12:18 Acetaminophen 325 Mg Tablet PO 650 mg Q4H PRN Administration Mild Pain (1-3) Or Fever Hydrocodone Bitart/Acetaminophen 1 tab 08/07/23 15:15 08/11/23 09:20 Hydrocodone/Acetaminoph
[2023-08-11] MEDS: CYCLOBENZAPRINE HCL 5 MG TABLET PO ×2 (12:05→20:47)
[2023-08-11 14:10] VITALS: BP 148/55; PULSE 96; RESP 18; TEMP 37.5; O2SAT 97
--- NOTE | 2023-08-11 14:14 | PC.NURSE ---
On 08/11/23, the student, [Liza Mccormick], provided care and completed [facility] documentation on this patient. I have reviewed the student's documentation and agree with the findings.
[2023-08-11] MEDS: TAMSULOSIN HCL 0.4 MG CAPSULE PO (20:47)
[2023-08-11 22:00] VITALS: BP 118/50; PULSE 84; RESP 20; TEMP 36.5; O2SAT 97
[2023-08-12] MEDS: HYDROcodone/acetaminophen (*CRX) 7.5-325 MG TABLET 1 TAB PO ×4 (01:44→16:56)
[2023-08-12 06:00] VITALS: BP 127/55; PULSE 72; RESP 20; TEMP 36.5; O2SAT 98
[2023-08-12] MEDS: dilTIAZem HCL 60 MG TABLET PO ×2 (06:32→13:17)
[2023-08-12 08:00] LABS: Basophils Absolute Auto 0.1 K/mm3 (0.0-0.1); Basophils Percent Auto 0.5 % (0.2-1.2); Eosinophils Absolute Auto 0.1 K/mm3 (0-0.3); Eosinophils Percent Auto 0.5 % (0-4.4); Hematocrit 29.5 % (42.0-52.0); Hemoglobin 9.5 g/dL (14.0-18.0); Immature Granulocyte Absolute 0.19 K/mm3 (0.00-0.031); Immature Granulocyte Percent A 1.5 % (0-0.5); Lymphocytes Absolute Auto 4.12 K/mm3 (0.9-3.2); Lymphocytes Percent Auto 31.7 % (18.3-44.2); Mean Corpuscular HGB Conc 32.2 g/dl (32-36); Mean Corpuscular Hemoglobin 29.1 pg (26-34); Mean Corpuscular Volume 90.5 fl (80-100); Mean Platelet Volume 8.7 fl (7.4-10.4); Neutrophils Absolute Auto 7.5 K/mm3 (1.3-6.7); Neutrophils Percent Auto 57.8 % (45.5-73.1); Platelet Count Result 221 k/mm3 (150-375); Red Blood Count 3.26 M/mm3 (4.6-6.20); Red Cell Distribution Width 16.6 % (11.5-14.5)
[2023-08-12 08:10] LABS: Alanine Aminotransferase 21 U/L (6-50); Albumin Level 2.5 g/dL (3.5-5.1); Alkaline Phosphatase 91 U/L (38-126); Anion Gap -1 mmol/L (4-12); Aspartate Amino Transferase 23 U/L (17-59); Bilirubin,Total 0.4 mg/dL (0.2-1.3); Blood Urea Nitrogen 17 mg/dL (9-20); Calcium 8.6 mg/dL (8.4-10.2); Carbon Dioxide 33 mmol/L (22-30); Chloride 98 mmol/L (98-107); Estimated CRCL calculation 45 ml/min; Estimated Glomerular Filt Rate 49; Glucose 102 mg/dL (65-110); Magnesium 1.9 mg/dL (1.6-2.3); Potassium 4.3 mmol/L (3.4-5.0); Sodium 130 mmol/L (137-145)
[2023-08-12 08:30] LABS: Atypical Lymphocytes Present; Platelet Estimate Adequate (Adequate); Schistocytes None Seen
[2023-08-12] MEDS: PANTOPRAZOLE 40 MG TABLET PO (09:46)
[2023-08-12] MEDS: AMOXICILLIN/CLAVULANATE K 875-125 MG TAB 1 TABLET PO (09:46)
--- NOTE | 2023-08-12 11:58 | PM.DS ---
DS: Admitting Diagnosis Discharge Date 08/12/23 Admitting Diagnosis Sepsis UTI Dilated gallbladder Chronic kidney disease BPH Hypertension Massive right kidney Atrial fibrillation Incidental pulmonary nodule Low back pain Anemia DS: Discharge Diagnosis Discharge Diagnosis (1) Low back pain: Code(s): M54.50 - Low back pain, unspecified Status: Acute (2) Sepsis: Qualifiers: Sepsis acute organ dysfunction status: unspecified Sepsis type: sepsis due to unspecified organism Qualified Code(s): A41.9 - Sepsis, unspecified organism Code(s): A41.9 - Sepsis, unspecified organism Status: Acute (3) Pyelonephritis, acute: Code(s): N10 - Acute pyelonephritis Status: Acute (4) Urinary retention: Code(s): R33.9 - Retention of urine, unspecified Status: Acute (5) Mass of right kidney: Code(s): N28.89 - Other specified disorders of kidney and ureter Status: Chronic (6) Elevated PSA: Code(s): R97.20 - Elevated prostate specific antigen [PSA] Status: Acute Assessment and Plan: DS: Summary Hospital Course Reason for hospitalization: Sepsis UTI Dilated gallbladder Chronic kidney disease BPH Hypertension Massive right kidney Atrial fibrillation Incidental pulmonary nodule Low back pain Anemia Hospital Course: 08/11/23: This is a 78 year old male who presented to the hospital on 08/04/23 with complaints of weakness. Patient was recently hospitalized 3 weeks ago in [facility] for UTI, sepsis, ARF, new onset A fib. He was found to have urinary retention and a lozada was placed. During that admission he was given IVIG, high dose steroids, multiple platelet infusion and started on Cardizem. He also finished a course of Augmentin for UTI. After finishing the course of Augmentin, he became increasing weak, fatigued, and developed a fever. In the ED, he was febrile to 100.6, tachycardic 117 with BP as high as 204/169. WBC 16.5K with Hgb 8.2 and plt 359K. Rare schistocytes noted. Sodium 130 and BUN 24 and Cr 1.5. LFTs normal. UA showing 1+ protein, 2+ LE, and 21-50 WBC. Influenza, RSV and COVID PCR negative. CXR showing subsegmental left basilar atelectasis/consolidation. CT Abd/pelvis showing small bilateral pleural effusion and atelectasis, dilated GB with GS in the neck of the GB and perinephric stranding with 3.1cm right upper pole renal mass. Also noted to have trace ascites and moderate body wall edema. BCx obtained. EKG showing sinus rhythm with nonspecific ST-T wave changes. A second CT of the abdomen and pelvis was performed and shown bilateral pyelonephritis, right worse than left.? Renal ultrasound was negative.? Venous Doppler was also negative for DVT.? Blood and urine cultures showing E coli.? New set of blood cultures are showing no growth to date.? Urology was consulted and following.? He denies any new complaints today.? Labs today show a white blood cell count of 11.3, hemoglobin 9.4, sodium is 130, creatinine 1.6.? He was changed to oral antibiotics yesterday and will remain on oral antibiotics for the next 2 weeks per Urology.? He will also have to keep catheter in until the follow-up appointment. 08/12/23: Patient denies any new complaints today. Labs today show white blood cell count of 13.0, hemoglobin 9.5, sodium 130, creatinine 1.4. He is stable for discharge today. Plan for him to follow up with his pain management doctor this coming week, get into PT/OT for strength training and stretching program, and follow up with his PCP in 1 week. He will also keep lozada catheter in place, finish antibiotics and follow up with Urology in 2 weeks. Final diagnosis: Sepsis, UTI , Low back pain Status at Discharge Cognitive/behavioral status at discharge: Alert oriented x4 Functional status at discharge: uses cane/walker Overall status at discharge: patient is progressing back to baseline Time Spent with Patient Time attestation: Total time spent
[2023-08-12 13:15] VITALS: BP 150/62; PULSE 95; RESP 16; TEMP 36.6; O2SAT 98
--- NOTE | 2023-08-12 16:16 | PC.NURSE ---
Called Mariama Gallegos to verify if patient should resume lasix as it has been on hold since 08/07 but is resumed in DC instructions. Okay to resume lasix. Instructed patient and family
--- NOTE | 2023-08-12 17:18 | PC.NURSE ---
Provider patient and daughter with pamphlets with information regarding private duty and outpatient therapy
--- NOTE | 2023-08-17 14:22 | PC.NURSE ---
Blood cx are negative.
== END 2023-08-12 17:10 | disposition home or self-care (01) | DRG 698 ==
LOC: ANHED 08-05 00:04 → ANH2MED 08-05 04:28
PROVIDERS: Family Medicine; Internal Medicine; Student in an Organized Health Care Education/Training Program; Admitting Provider Internal Medicine; Emergency Provider Physician Assistant; PCP Family Medicine; Visit Provider Nurse Practitioner Acute Care
DX: T83.511A Infection and inflammatory reaction due to indwelling urethral catheter, initial encounter (principal); A41.9 Sepsis, unspecified organism; N10 Acute pyelonephritis; D69.3 Immune thrombocytopenic purpura; N17.9 Acute kidney failure, unspecified; B96.20 Unspecified Escherichia coli [E. coli] as the cause of diseases classified elsewhere; R33.9 Retention of urine, unspecified; I12.9 Hypertensive chronic kidney disease with stage 1 through stage 4 chronic kidney disease, or unspecified chronic kidney disease; N18.9 Chronic kidney disease, unspecified; N28.89 Other specified disorders of kidney and ureter; R97.20 Elevated prostate specific antigen [PSA]; Z20.822 Contact with and (suspected) exposure to COVID-19; K80.20 Calculus of gallbladder without cholecystitis without obstruction; I48.91 Unspecified atrial fibrillation; N40.1 Benign prostatic hyperplasia with lower urinary tract symptoms; Z90.49 Acquired absence of other specified parts of digestive tract; E66.9 Obesity, unspecified; Z68.30 Body mass index [BMI] 30.0-30.9, adult; L40.50 Arthropathic psoriasis, unspecified; D64.9 Anemia, unspecified; M54.50 Low back pain, unspecified; R91.1 Solitary pulmonary nodule; Z66 Do not resuscitate
CPT/HCPCS: 36415; 36430; 47490; 71045; 74018; 74176; 74177; 76775; 80048; 80053; 80069; 81001; 82550; 82570; 82607; 82728; 82746; 83540; 83550; 83605; 83690; 83735; 84100; 84145; 84153; 84300; 85014; 85018; 85025; 85027; 85610; 85730; 85999; 86160; 86162; 86850; 86900; 86901; 86923; 87040; 87077; 87086; 87088; 87186; 87637; 93005; 93970; 96365; 96367; 96375; 96376; 97116; 97161; 97165; 97530; 97535; 99285; A9270; G0378; J0696; J2185; J2270; J2405; J7030; P9016; Q9967

== ENCOUNTER 2023-09-20 14:43 | Emergency (ER) | payer BC, SELFPAY ==
[2023-09-20] VITALS (9 sets, daily range): BP systolic 98–146; BP diastolic 50–96; PULSE 79–120; RESP 14–22; TEMP 37–39.2; O2SAT 95–98
--- NOTE | ~2023-09-20 | CT_ITS ---
EXAMINATION: CT abdomen pelvis w con DATE: 09/20/2023 16:15 INDICATION: Fever. Low back pain. TECHNIQUE: Computed tomography (CT) of the abdomen and pelvis was performed with 100 mL Omnipaque 350 intravenous contrast. Automated exposure control and iterative reconstruction technique were employe d. The dose-length product was 596.90 mGy-cm. COMPARISON: CT abdomen and pelvis 08/05/2023, 08/04/2023 FINDINGS: The visualized portions of the lung bases demonstrate mild listhesis. No pleural effusion. The heart size is normal. There are coronary artery calcifications. No pericardial effusion. There is a small sliding hiatal hernia. The liver is normal. There is a gallstone in the gallbladder, which i s normal in size. The spleen, pancreas, adrenal glands, and right kidney are normal. There is a 6 mm cyst in left kidney. There is a 2.0 cm hemorrhagic cyst in left kidney. There is a Antonio catheter in expected position. The prostate is moderately enlarged. There is diverticulosis of the colon without evidence of diverticulitis. There are no dilated loops of bowel. The appendix is not visualized. Ther e are no pathologically enlarged lymph nodes. There is no free intraperitoneal fluid. There is severe lumbar spondylosis. There are endplate erosions at L1-L2, L3-L4, and L4-L5. IMPRESSION: 1. New endplate erosions at L1-L2, L3-L4, and L4-L5, consistent with discitis. Reviewed, dictated and finalized at location E.
--- NOTE | ~2023-09-20 | XR_ITS ---
EXAMINATION: XR chest 1V DATE: 09/20/2023 15:58 INDICATION: Shortness of breath. TECHNIQUE: A single frontal view of the chest was obtained. COMPARISON: Chest single view 08/04/2023, CT abdomen and pelvis 08/05/2023 FINDINGS: There is mild atelectasis at left lung base. No pleural effusion or pneumothorax. The heart size is normal. IMPRESSION: 1. Mild atelectasis at left lung base. Reviewed, dictated and finalized at location E.
--- NOTE | 2023-09-20 15:02 | ECG_ITS ---
SEE SCANNED COPY FOR CONFIRMED REPORT MTDD
--- NOTE | 2023-09-20 15:29 | ED.GENADULT ---
HPI - General Adult General Chief complaint: Fever <Arely Marie September, - Last Filed: 09/20/23 19:45> Stated complaint: Weakness <Arely Marie September, Last Filed: 09/20/23 19:45> Time Seen by Provider: 09/20/23 14:54 <Arely Marie September, Last Filed: 09/20/23 19:45> History of Present Illness HPI narrative: Travis Sears who is 78 y/o male who presents with reported hx of Afib / sciatica and was recently admited to an OSH in July in [place] and developed a bed sore, he goes to the pain clinic for injections for his right sciatica and today he went and his pain doctor wouldn't do his injection because he was concerned he has an infection, he was febrile. Patient is complaining of severe pain to his right sciatica area / stage II bed sore with blanchable erythema surrounding Last BM was today He has an indwelling catheter that was placed in [place] due to prostate issues/ urinary retention <Arely Marie September, Last Filed: 09/20/23 19:45> Related Data Home medications: Home Medications Medication Instructions Recorded Confirmed tamsulosin 0.4 mg capsule (Flomax) 0.4 mg PO DAILY 08/04/23 09/12/23 amiodarone 200 mg tablet 200 mg PO BID 09/20/23 amoxicillin 875 mg-potassium 1 tablet PO DAILY 09/20/23 09/20/23 clavulanate 125 mg tablet infliximab 100 mg intravenous 100 mg IV 09/20/23 solution (Remicade) oxycodone 5 mg tablet 5 mg PO PRN 09/20/23 09/20/23 <Arely Marie September, - Last Filed: 09/20/23 19:45> Allergies/adverse reactions: Allergies Allergy/AdvReac Type Severity Reaction Status Date / Time No Known Allergies Allergy Verified 09/20/23 15:03 <Arely Marie September, Last Filed: 09/20/23 19:45> Review of Systems Review of Systems: CONSTITUTIONAL: + fever EYES: Denies visual changes, redness, or discharge. ENT: Denies rhinorrhea, congestion, sore throat, or otalgia. CARDIOVASCULAR: Denies chest pain, palpitations, or edema. RESPIRATORY: Denies cough or dyspnea. GASTROINTESTINAL: Denies abdominal pain, nausea, vomiting, or diarrhea. GENITOURINARY: Denies dysuria or hematuria. SKIN: Denies rash or itching. MUSCULOSKELETAL: + right hip/ sciatica pain NEUROLOGIC: Denies headache, numbness, dizziness, or weakness. PSYCHIATRIC: Denies anxiety or depression. <Arely Harvey APRN - Last Filed: 09/20/23 19:45> [facility] Past Medical History Medical History: Medical History Atrial fibrillation BPH loc w urin obs/LUTS CKD (chronic kidney disease) History of ITP HTN (hypertension), benign <Arely Harvey APRN - Last Filed: 09/20/23 19:45> Surgical History Surgical History: Surgical History Hx of appendectomy <Arely Harvey APRN - Last Filed: 09/20/23 19:45> Social History Social History: Social History Social History: Lives alone, Spend pack in [place]. No hx of tobacco use. Rare alcohol use but does binge 6-7 drinks once/month. No hx of drug use. Wishes to be DNR. He nominates his daughter to be the individual to make decision for his if he is unable. Smoking status: Never smoker Alcohol intake: never Substance use: never Do You Feel Safe in your Home?: Yes Lack of Transportation: No Lack of Food: Never True Current Housing: I Have Housing Concerned About Future Housing: No Difficulty Paying Gas/Electric Bills: No Difficulty Paying for Meds: No Currently Unemployed: No Education: Bachelor's Degree Difficulty w/ Childcare or Family Care: No Spiritual care concerns: No <Arely Harvey APRN - Last Filed: 09/20/23 19:45> Exam Narrative: GENERAL:appears to be in pain / unwell. HEAD: Normocephalic, atraumatic. EYES: PERRLA and EOMI. ENT: Nares clear, no rhinorrhea or epistaxis. Mucous membranes moist. Oropharynx without tonsillar hypertrophy exudate or oth
[2023-09-20 15:36] LABS: Basophils Percent Auto 0.2 % (0.2-1.2); Hematocrit 29.4 % (42.0-52.0); Hemoglobin 9.2 g/dL (14.0-18.0); Immature Granulocyte Absolute 0.21 K/mm3 (0.00-0.031); Immature Granulocyte Percent A 1.3 % (0-0.5); Lymphocytes Absolute Auto 2.82 K/mm3 (0.9-3.2); Lymphocytes Percent Auto 17.3 % (18.3-44.2); Mean Corpuscular HGB Conc 31.3 g/dl (32-36); Mean Corpuscular Hemoglobin 28.7 pg (26-34); Mean Corpuscular Volume 91.6 fl (80-100); Mean Platelet Volume 8.7 fl (7.4-10.4); Monocytes Absolute Auto 0.8 K/mm3 (0.1-0.6); Monocytes Percent Auto 5.1 % (2.6-8.5); Neutrophils Absolute Auto 12.4 K/mm3 (1.3-6.7); Neutrophils Percent Auto 76.1 % (45.5-73.1); Platelet Count Result 325 k/mm3 (150-375); Red Blood Count 3.21 M/mm3 (4.6-6.20); Red Cell Distribution Width 18.5 % (11.5-14.5); White Blood Count 16.3 K/mm3 (4.5-10.0)
[2023-09-20] MEDS: fentaNYL CITRATE INJ (*CRX) 100 MCG/2 ML VIAL 50 MCG IV PUSH ×2 (15:39→18:07)
[2023-09-20] MEDS: ACETAMINOPHEN 500 MG TABLET 1000 MG PO (15:40)
[2023-09-20] MEDS: KETOROLAC 30 MG/ML VIAL (*BKC) IV PUSH (15:40)
[2023-09-20 15:49] LABS: Lactic Acid Reflex 1.9 mmol/L (0.7-2.0)
[2023-09-20 15:51] LABS: Appearance Urine Cloudy (Clear); Bacteria Urine 2+ /hpf; Bilirubin Urine Negative (Negative); Blood Urine Trace (Negative); Color Urine Yellow (Yellow); Glucose Urine UA Negative (Negative); Hyaline Casts Urine Present /lpf; Ketones Urine Negative (Negative); Leukocyte Esterase Ur 2+ LEU/UL (Negative); Nitrate Urine Negative (Negative); Protein Urine 2+ mg/dL (Negative); RBC Urine 0-2 /hpf (0-2); Specific Grav Ur 1.025 (1.001-1.035); Squamous Epithelial Cell Urine Occasional /hpf (Few); Urobilinogen Urine 0.2 mg/dL (<2.0); WBC Urine 21-50 /hpf (0-3); pH Urine 5.5 (5.0-9.0)
[2023-09-20 15:53] LABS: Add Urine Microscopic? YES
[2023-09-20 15:58] LABS: Alanine Aminotransferase 23 U/L (6-50); Albumin Level 3.7 g/dL (3.5-5.1); Alkaline Phosphatase 174 U/L (38-126); Anion Gap 7 mmol/L (4-12); Aspartate Amino Transferase 29 U/L (17-59); Bilirubin,Total 0.5 mg/dL (0.2-1.3); Blood Urea Nitrogen 26 mg/dL (9-20); Calcium 8.5 mg/dL (8.4-10.2); Carbon Dioxide 20 mmol/L (22-30); Chloride 102 mmol/L (98-107); Estimated CRCL calculation 43 ml/min; Estimated Glomerular Filt Rate 54; Glucose 135 mg/dL (65-110); Potassium 5.1 mmol/L (3.4-5.0); Sodium 129 mmol/L (137-145)
[2023-09-20] MEDS: SODIUM CHLORIDE 0.9% IV 2,500 ML/1,000 ML BAG 999 ML IV CONT ×3 (16:07→18:07)
[2023-09-20 16:50] LABS: INR 1.2; Partial Thromboplastin Time 46.8 Seconds (22.3-36.8); Prothrombin Time 16.3 Seconds (11.1-14.7)
[2023-09-20] MEDS: HYDROmorphone HCL INJ (*CRX) 1 MG/ML SYR 0.5 MG IV PUSH (22:43)
[2023-09-21] VITALS (44 sets, daily range): BP systolic 100–127; BP diastolic 52–63; PULSE 68–104; RESP 13–23; TEMP 37–38.9; O2SAT 91–100
[2023-09-21] MEDS: HYDROmorphone HCL INJ (*CRX) 1 MG/ML SYR 0.5 MG IV PUSH ×4 (06:57→20:02)
[2023-09-21] MEDS: ACETAMINOPHEN 500 MG TABLET 1000 MG PO ×2 (07:01→19:57)
--- NOTE | 2023-09-21 11:51 | PC.NURSE ---
[id number]- spoke with Yessica [facility], patient still remains on waitlist for a bed.
[2023-09-21 14:22] LABS: Basophils Percent Auto 0.2 % (0.2-1.2); Hematocrit 25.7 % (42.0-52.0); Hemoglobin 7.9 g/dL (14.0-18.0); Immature Granulocyte Absolute 0.09 K/mm3 (0.00-0.031); Immature Granulocyte Percent A 0.7 % (0-0.5); Lymphocytes Absolute Auto 2.91 K/mm3 (0.9-3.2); Lymphocytes Percent Auto 22.7 % (18.3-44.2); Mean Corpuscular HGB Conc 30.7 g/dl (32-36); Mean Corpuscular Volume 91.1 fl (80-100); Mean Platelet Volume 8.5 fl (7.4-10.4); Monocytes Absolute Auto 0.8 K/mm3 (0.1-0.6); Monocytes Percent Auto 6.2 % (2.6-8.5); Neutrophils Percent Auto 70.2 % (45.5-73.1); Platelet Count Result 243 k/mm3 (150-375); Red Blood Count 2.82 M/mm3 (4.6-6.20); Red Cell Distribution Width 18.7 % (11.5-14.5); White Blood Count 12.8 K/mm3 (4.5-10.0)
[2023-09-21 14:32] LABS: Alanine Aminotransferase 19 U/L (6-50); Albumin Level 3.1 g/dL (3.5-5.1); Alkaline Phosphatase 128 U/L (38-126); Anion Gap 7 mmol/L (4-12); Aspartate Amino Transferase 26 U/L (17-59); Bilirubin,Total 0.5 mg/dL (0.2-1.3); Blood Urea Nitrogen 22 mg/dL (9-20); Calcium 8.3 mg/dL (8.4-10.2); Carbon Dioxide 21 mmol/L (22-30); Chloride 104 mmol/L (98-107); Estimated CRCL calculation 40 ml/min; Estimated Glomerular Filt Rate 49; Glucose 154 mg/dL (65-110); Potassium 4.5 mmol/L (3.4-5.0); Sodium 132 mmol/L (137-145)
--- NOTE | 2023-09-21 15:12 | ECG_ITS ---
SEE SCANNED COPY FOR CONFIRMED REPORT MTDD
[2023-09-21] MEDS: AMIODARONE HCL 200 MG TABLET PO (16:04)
[2023-09-21 16:54] LABS: Glucose Point of Care 110 mg/dl (65-105)
--- NOTE | 2023-09-21 18:11 | PC.NURSE ---
[id number] spoke with Yessica [facility]-patient still remains on waitlist
--- NOTE | 2023-09-21 18:44 | PC.NURSE ---
RN before me states they are unable to do updated pain assessments in the MAR.
--- NOTE | 2023-09-21 22:03 | PC.NURSE ---
Pt accepted by Dr Rangel at 2208 to [facility]
--- NOTE | 2023-09-21 22:19 | PC.NURSE ---
care and report given to ROGER Bhandari. all questions answered.
--- NOTE | 2023-09-21 22:30 | PC.NURSE ---
Assumed care of pt from ROGER Titus at this time. Pt resting comfortably in bed w call light within reach. No requests at this time.
--- NOTE | 2023-09-21 22:42 | PC.NURSE ---
This RN spoke with mich Hopper from [facility]. Pt to be receiving bed at this facility tonight, room is dirty awaiting to be cleaned.
[2023-09-22 00:37] VITALS: BP 102/62; PULSE 80; RESP 17; O2SAT 99
--- NOTE | 2023-09-22 00:48 | PC.NURSE ---
Pt to go to room 511 at [facility]. Report called at 0025. Transport arranged by ED security control room officer. ETA 40 minutes.
[2023-09-22] MEDS: HYDROmorphone HCL INJ (*CRX) 1 MG/ML SYR 0.5 MG IV PUSH (00:59)
== END 2023-09-22 01:35 | disposition short-term general hospital (02) ==
PROVIDERS: Nurse Practitioner Family; Emergency Provider Preventive Medicine Aerospace Medicine; PCP Family Medicine
DX: M46.46 Discitis, unspecified, lumbar region (principal); I48.91 Unspecified atrial fibrillation; N18.9 Chronic kidney disease, unspecified; I12.9 Hypertensive chronic kidney disease with stage 1 through stage 4 chronic kidney disease, or unspecified chronic kidney disease; Z79.891 Long term (current) use of opiate analgesic
CPT/HCPCS: 36415; 71045; 74177; 80053; 81001; 82948; 83605; 85025; 85610; 85730; 86140; 87040; 87077; 87086; 87186; 93005; 96361; 96365; 96375; 96376; 99285; A9270; J0696; J1170; J1885; J3010; J7030; Q9967

== ENCOUNTER 2023-11-21 22:15 | Observation (INO) | payer BC, MEDICARE, SELFPAY ==
--- NOTE | ~2023-11-21 | XR_ITS ---
EXAMINATION: XR chest 1V portable Exam Date/Time: 11/21/2023 23:27 CDT HISTORY: weakness/ accidental overdose Comparison: 09/20/2023. RESULT: Lines, tubes, and devices: Right upper extremity PICC terminating in the SVC. Lungs and pleura: Clear. Cardiomediastinal silhouette: Stable. Other: No acute osseous or upper abdominal finding. IMPRESSION: No acute cardiopulmonary process. Reviewed, dictated and finalized at location K.
[2023-11-21 22:19] VITALS: BP 137/78; PULSE 90; RESP 15; TEMP 36.7; O2SAT 97
--- NOTE | 2023-11-21 23:06 | PC.NURSE ---
Poison control contacted by this RN. ROGER Zayas states medication doses he received are not concerning for one time doses. Chana to fax information sheets for medications and will call back in 2 hours to check on pt and get update on course of treatment.
[2023-11-21 23:17] LABS: Glucose Point of Care 92 mg/dl (65-105)
[2023-11-21 23:17] LABS: Glucose Point of Care 89 mg/dl (65-105)
--- NOTE | 2023-11-21 23:17 | ECG_ITS ---
Test Date: 2023-11-21 23:50:04 Measurements Intervals [place] [place] Rate: 82 P: 34 OR: 204 QRS: 21 QRSD: 81 T: 16 QT: 366 QTc: 428 Interpretive Statements SINUS RHYTHM MINIMAL Q WAVES- INFERIOR LEADS BORDERLINE ECG No previous ECG available for comparison Electronically Signed On 11-22-2023 07:16:32 CDT by Naga Diallo D.O.
[2023-11-21 23:32] VITALS: RESP 17; O2SAT 100
[2023-11-21 23:50] LABS: Basophils Percent Auto 0.4 % (0.2-1.2); Eosinophils Absolute Auto 0.3 K/mm3 (0-0.3); Eosinophils Percent Auto 4.7 % (0-4.4); Hematocrit 32.1 % (42.0-52.0); Hemoglobin 10.3 g/dL (14.0-18.0); Immature Granulocyte Absolute 0.06 K/mm3 (0.00-0.031); Immature Granulocyte Percent A 0.9 % (0-0.5); Lymphocytes Absolute Auto 1.68 K/mm3 (0.9-3.2); Lymphocytes Percent Auto 24.5 % (18.3-44.2); Mean Corpuscular HGB Conc 32.1 g/dl (32-36); Mean Corpuscular Hemoglobin 29.8 pg (26-34); Mean Corpuscular Volume 92.8 fl (80-100); Mean Platelet Volume 8.7 fl (7.4-10.4); Monocytes Absolute Auto 0.6 K/mm3 (0.1-0.6); Monocytes Percent Auto 9.2 % (2.6-8.5); Neutrophils Absolute Auto 4.2 K/mm3 (1.3-6.7); Neutrophils Percent Auto 60.3 % (45.5-73.1); Platelet Count Result 218 k/mm3 (150-375); Red Blood Count 3.46 M/mm3 (4.6-6.20); Red Cell Distribution Width 15.4 % (11.5-14.5); White Blood Count 6.9 K/mm3 (4.5-10.0)
[2023-11-22] VITALS (18 sets, daily range): BP systolic 112–164; BP diastolic 56–81; PULSE 72–104; RESP 16–20; TEMP 36.4–36.9; O2SAT 98–100; BMI 25.4; BMI 25.7; BMI 25.6
[2023-11-22 00:08] LABS: Alanine Aminotransferase 23 U/L (6-50); Albumin Level 3.9 g/dL (3.5-5.1); Alkaline Phosphatase 113 U/L (38-126); Anion Gap 8 mmol/L (4-12); Aspartate Amino Transferase 26 U/L (17-59); Bilirubin,Total 0.5 mg/dL (0.2-1.3); Blood Urea Nitrogen 46 mg/dL (9-20); Calcium 9.4 mg/dL (8.4-10.2); Carbon Dioxide 29 mmol/L (22-30); Chloride 99 mmol/L (98-107); Estimated CRCL calculation 46 ml/min; Estimated Glomerular Filt Rate 59; Glucose 85 mg/dL (65-110); Magnesium 2.1 mg/dL (1.6-2.3); Potassium 4.2 mmol/L (3.4-5.0); Sodium 136 mmol/L (137-145)
[2023-11-22 00:36] LABS: Lactic Acid Reflex < 0.5 mmol/L (0.7-2.0)
--- NOTE | 2023-11-22 00:42 | ED.GENADULT ---
HPI - General Adult General Chief complaint: Recheck/Abnormal Lab/Rx Stated complaint: given wrong medication Time Seen by Provider: 11/21/23 22:58 History of Present Illness HPI narrative: Patient 78-year-old gentleman who presents emergency department with chief complaint of accidental overdose. Patient is doing rehab in a local nursing facility after being admitted there today after being discharged from long-term acute care hospital the patient was given the wrong medications by the nurse at the facility he was given Lantus Eliquis primidone trazodone gabapentin and atorvastatin The patient is not normally on insulin the patient's family was concerned at the level of care at the facility and requests the patient be admitted until new placement can be found Related Data Home Medications Medication Instructions Recorded Confirmed tamsulosin 0.4 mg capsule (Flomax) 0.4 mg PO DAILY 08/04/23 09/12/23 amiodarone 200 mg tablet 200 mg PO BID 09/20/23 amoxicillin 875 mg-potassium 1 tablet PO DAILY 09/20/23 09/20/23 clavulanate 125 mg tablet infliximab 100 mg intravenous 100 mg IV 09/20/23 solution (Remicade) oxycodone 5 mg tablet 5 mg PO PRN 09/20/23 09/20/23 Allergies Allergy/AdvReac Type Severity Reaction Status Date / Time No Known Allergies Allergy Verified 11/21/23 22:27 Review of Systems Review of Systems: A 10 system review of systems was completed on the patient and is negative except for what is stated in the HPI. Nursing and ancillary documentation was reviewed. PMFSH Past Medical History Medical History Atrial fibrillation BPH loc w urin obs/LUTS CKD (chronic kidney disease) History of ITP HTN (hypertension), benign Surgical History Surgical History Hx of appendectomy Social History Social History Social History: Lives alone, Spend pack in [place]. No hx of tobacco use. Rare alcohol use but does binge 6-7 drinks once/month. No hx of drug use. Wishes to be DNR. He nominates his daughter to be the individual to make decision for his if he is unable. Smoking status: Never smoker Alcohol intake: never Substance use: never Do You Feel Safe in your Home?: Yes Lack of Transportation: No Lack of Food: Never True Current Housing: I Have Housing Concerned About Future Housing: No Difficulty Paying Gas/Electric Bills: No Difficulty Paying for Meds: No Currently Unemployed: No Education: Bachelor's Degree Difficulty w/ Childcare or Family Care: No Spiritual care concerns: No Exam Narrative: GENERAL: Well-appearing, well-nourished, and in no acute distress. HEAD: Normocephalic, atraumatic. EYES: PERRLA and EOMI. ENT: Nares clear, no rhinorrhea or epistaxis. Mucous membranes moist. NECK: Supple. CHEST: Clear to auscultation. No respiratory distress. HEART: Regular rate and rhythm. No murmur heard. Normal peripheral pulses. ABDOMEN: Soft, nontender, nondistended, normal active bowel sounds. EXTREMITIES: Normal range of motion. No edema. PICC line in the right upper extremity SKIN: Warm, dry, no rash. NEURO: No focal deficits. Alert and oriented x3. PSYCH: Normal mood and affect. Course Vital Signs Vital signs: Vital Signs Temperature 36.7 C 11/21/23 22:19 Pulse Rate 90 11/21/23 22:19 Respiratory Rate 15 11/21/23 22:19 Blood Pressure 137/78 11/21/23 22:19 Pulse Oximetry 97 11/21/23 22:19 Oxygen Delivery Room Air 11/21/23 22:19 Temperature 36.7 C 11/21/23 22:19 Pulse Rate 90 11/21/23 22:19 Respiratory Rate 17 11/21/23 23:32 Blood Pressure 137/78 11/21/23 22:19 Pulse Oximetry 100 11/21/23 23:32 Oxygen Delivery Room Air 11/21/23 22:19 Medical Decision Making Vital Signs Vital Signs: Vital Signs Temperatur
[2023-11-22 00:49] LABS: Glucose Point of Care 82 mg/dl (65-105)
[2023-11-22 00:54] LABS: Appearance Urine Clear (Clear); Bacteria Urine None Seen /hpf; Bilirubin Urine Negative (Negative); Blood Urine Negative (Negative); Color Urine Yellow (Yellow); Glucose Urine UA Negative (Negative); Ketones Urine Negative (Negative); Leukocyte Esterase Ur Trace LEU/UL (Negative); Nitrate Urine Negative (Negative); Non Pathogenic Casts 0-2; Protein Urine Trace mg/dL (Negative); RBC Urine 0-2 /hpf (0-2); Specific Grav Ur 1.017 (1.001-1.035); Squamous Epithelial Cell Urine None Seen /hpf (Few); Urobilinogen Urine 0.2 mg/dL (<2.0); WBC Urine 0-5 /hpf (0-3)
[2023-11-22 00:56] LABS: Add Urine Microscopic? YES
--- NOTE | 2023-11-22 01:29 | PC.NURSE ---
[place] poison control called for update. No new instructions at this time.
[2023-11-22 02:14] LABS: Glucose Point of Care 73 mg/dl (65-105)
--- NOTE | 2023-11-22 02:48 | PC.NURSE ---
Patient given 4oz cranberry juice for FSBS 73.
[2023-11-22 03:09] LABS: Glucose Point of Care 117 mg/dl (65-105)
[2023-11-22 04:14] LABS: Glucose Point of Care 80 mg/dl (65-105)
[2023-11-22 06:49] LABS: Glucose Point of Care 78 mg/dl (65-105)
--- NOTE | 2023-11-22 08:45 | PM.IMHP ---
H&P: HPI History of Present Illness Date/Time: 11/22/23 08:45 Chief Complaint: Accidental overdose Narrative: 78yo male with atrial fib, BPH, CKD, hx of ITP and HTN here for accidental overdose. Patient lives in [place] but spends his apck in [place]. He was having symptoms of urine retention and has known BPH so his primary care doctor started him on Flomax early Spring. He has elevated PSA but has declined to see Urology for this. Patient was in [place] when he became ill and was hospitalized for about 2.5 weeks. During that time he developed new onset atrial fibrillation, acute kidney injury and low platelets with concern for ITP. He was treated with IVIG, high-dose steroids and platelet transfusions. He was treated with rate controlling agents and converted. he was not treated with anticoagulation. He also had urine retention with UTI so Antonio placed. He was discharged around July 25 from the hospital and completer his oral abx about 1 week later. He was hospitalized here from August 04 through August 11 for sepsis, UTI with pyelonephritis and dilated gallbladder. He was having back pain but refused the MRI. He was discharged home on Augmentin. He was doing well for a few weeks until he developed worseing back pain and fever. He presented back to the ED on September [address] scan of the abdomen showed new end-plate erosions at L1-L2, L3-L4 and L4-L5 consistent with discitis. He was sent to [facility] and was treated with IV abx. He was discharged to an a rehab facility in [facility] and was doing well. He is walking with a walker and cane now. he was moved to [facility] and was there for a few hours. He was inadvertently given the wrong medications that included: Lantus, Eliquis, primidone, trazodone, gabapentin and atorvastatin. When the error was discovered, he was sent to the ED for evaluation. Patient feels 'somnolent and groggy still but not confused. He denies any other complaints. he has not been on Remicade since June. No EMS report to review In the ED, his vital signs were normal. He was 97% on room air. EKG showing minimal Q waves in the inferior leads and normal sinus. CXR was clear. Labs were pertinent for Hgb 10.3 (which is above his baseline), normal platelet count, sodium 136, BUN 46, Cr 1.2, lactic <0.5, and normal LFTs. UA clear. Serial glucose stable. No treatment given in the ED. He was admitted for further care for observation. Review of Systems Review of Systems: All systems reviewed & are unremarkable except as noted in HPI and below PMFSH Past Medical History Medical History (Updated 11/22/23 @ 11:14 by Kris Diamond MD) Atrial fibrillation BPH loc w urin obs/LUTS chronic Antonio CKD (chronic kidney disease) Discitis History of ITP HTN (hypertension), benign Psoriatic arthritis Surgical History Surgical History Hx of appendectomy Family History Family History (Updated 11/22/23 @ 20:57 by Kris Diamond MD) Father Heart disease Social History Social History Social History: Lives alone, Spend pack in [place]. No hx of tobacco use. Rare alcohol use but does binge 6-7 drinks once/month. No hx of drug use. Wishes to be DNR. He nominates his daughter to be the individual to make decision for his if he is unable. Smoking status: Never smoker Alcohol intake: never Substance use: never Do You Feel Safe in your Home?: Yes Lack of Transportation: No Lack of Food: Never True Current Housing: I Have Housing Concerned About Future Housing: No Difficulty Paying Gas/Electric Bills: No Difficulty Paying for Meds: No Currently Unemployed: No Education: Decline to Answer Difficulty w/ Childcare or Family Care: No Spiritual care concerns: No Meds Home Medications and Allergies Home Medications Medication Instr
[2023-11-22 09:13] LABS: Glucose Point of Care 76 mg/dl (65-105)
[2023-11-22] MEDS: FAMOTIDINE 20 MG TABLET PO ×2 (09:35→20:30)
[2023-11-22] MEDS: PREGABALIN (*CRX) 75 MG CAPSULE PO ×3 (09:35→17:29)
[2023-11-22] MEDS: TAMSULOSIN HCL 0.4 MG CAPSULE PO (09:35)
[2023-11-22] MEDS: DULoxetine HCL 20 MG CAPSULE.DR PO ×2 (09:35→17:29)
[2023-11-22] MEDS: HEPARIN SODIUM 5,000 UNITS/ML VIAL 5000 UNITS SUB-Q ×2 (09:35→20:39)
[2023-11-22] MEDS: FINASTERIDE 5 MG TABLET PO (09:35)
[2023-11-22] MEDS: hydrOXYzine HCL 25 MG TABLET PO ×2 (09:35→20:39)
[2023-11-22] MEDS: LIDOCAINE 5% PATCH 1 PATCH TOPICAL (09:36)
[2023-11-22] MEDS: cefTRIAXone 2 GM/NS 100 ML 2 GM/100 ML BAG IVPB (09:51)
[2023-11-22] MEDS: DAPTOmycin 500 MG in SODIUM CHLORIDE 0.9% IV 50 ML 100 MG IVPB (10:50)
[2023-11-22 14:46] LABS: Glucose Point of Care 92 mg/dl (65-105)
[2023-11-22 16:31] LABS: Glucose Point of Care 99 mg/dl (65-105)
[2023-11-22 20:21] LABS: Glucose Point of Care 117 mg/dl (65-105)
[2023-11-22] MEDS: SENNA/DOCUSATE SODIUM TABLET 1 TAB PO (20:30)
[2023-11-22] MEDS: QUEtiapine FUMARATE 25 MG TABLET PO (20:30)
[2023-11-22] MEDS: traMADol HCL (*CRX) 50 MG TABLET PO (20:44)
[2023-11-23] VITALS (13 sets, daily range): BP systolic 115–132; BP diastolic 60–70; PULSE 63–121; RESP 18–20; TEMP 36.1–36.5; O2SAT 96–100
[2023-11-23 00:05] LABS: Glucose Point of Care 84 mg/dl (65-105)
[2023-11-23 05:38] LABS: Anion Gap 8 mmol/L (4-12); Blood Urea Nitrogen 41 mg/dL (9-20); Calcium 9.2 mg/dL (8.4-10.2); Carbon Dioxide 27 mmol/L (22-30); Chloride 99 mmol/L (98-107); Estimated CRCL calculation 40 ml/min; Estimated Glomerular Filt Rate 49; Glucose 77 mg/dL (65-110); Potassium 4.3 mmol/L (3.4-5.0); Sodium 134 mmol/L (137-145)
[2023-11-23 06:11] LABS: Thyroid Stimulating Hormone Reflex 0.951 uIU/mL (0.465-4.68)
[2023-11-23 06:34] LABS: Glucose Point of Care 75 mg/dl (65-105)
[2023-11-23] MEDS: cefTRIAXone 2 GM/NS 100 ML 2 GM/100 ML BAG IVPB (08:40)
[2023-11-23] MEDS: LIDOCAINE 5% PATCH 1 PATCH TOPICAL (08:41)
[2023-11-23] MEDS: FAMOTIDINE 20 MG TABLET PO ×2 (08:41→21:16)
[2023-11-23] MEDS: PREGABALIN (*CRX) 75 MG CAPSULE PO ×3 (08:41→16:59)
[2023-11-23] MEDS: HEPARIN SODIUM 5,000 UNITS/ML VIAL 5000 UNITS SUB-Q ×2 (08:41→21:16)
[2023-11-23] MEDS: DULoxetine HCL 20 MG CAPSULE.DR PO ×2 (08:41→16:59)
[2023-11-23] MEDS: TAMSULOSIN HCL 0.4 MG CAPSULE PO (08:45)
[2023-11-23] MEDS: FINASTERIDE 5 MG TABLET PO (08:45)
[2023-11-23] MEDS: DAPTOmycin 500 MG in SODIUM CHLORIDE 0.9% IV 50 ML 100 MG IVPB (10:02)
--- NOTE | 2023-11-23 11:56 | PCPTNOTE ---
On 11/23/23, the student, [Kimberley Zapata], provided care and completed [facility] documentation on this patient. I have reviewed the student's documentation and agree with the findings.
[2023-11-23 12:29] LABS: Glucose Point of Care 156 mg/dl (65-105)
--- NOTE | 2023-11-23 16:53 | PM.IMPN ---
Progress Note: A&P Assessment and Plan (1) Accidental overdose: Code(s): T50.901A - Poisoning by unspecified drugs, medicaments and biological substances, accidental (unintentional), initial encounter Status: Acute (2) PAF (paroxysmal atrial fibrillation): Code(s): I48.0 - Paroxysmal atrial fibrillation Status: Acute (3) BPH loc w urin obs/LUTS: Code(s): N40.1 - Benign prostatic hyperplasia with lower urinary tract symptoms Status: Acute (4) CKD (chronic kidney disease): Qualifiers: Chronic kidney disease stage: unspecified stage Qualified Code(s): N18.9 - Chronic kidney disease, unspecified Code(s): N18.9 - Chronic kidney disease, unspecified Status: Chronic (5) Discitis: Qualifiers: Spinal region: lumbar Qualified Code(s): M46.46 - Discitis, unspecified, lumbar region Code(s): M46.40 - Discitis, unspecified, site unspecified Status: Inactive Plan Patient is admitted to [facility] after unintentional and accidental overdose. Patient still having some mild symptoms related to the medications. Glucose is stable. Continue to monitor with fingerstick blood sugars and he has hypoglycemia protocol available as needed. Will resume his IV antibiotics. Will resume a majority of his home medications that have been verified. His Antonio catheter has been changed out about 5 days ago so will not perform this now. He does not want to go back to the rehab facility that he does left from so have care coordination make alternative arrangements. Start PT and OT. Increase activity as tolerated. Continue to monitor closely. Watch renal function. 11/23/23 - Patient feels well. He has recovered from the inadvertent medication overdose. Continue current home meds. Okay to stop tele. Move to medical floor. Awaiting placement. DVT prophylaxis -heparin Code status - DNR Subjective Date/time seen: 11/23/23 16:53 Interval history: 78yo male with atrial fib, BPH, CKD, hx of ITP and HTN here for accidental overdose. Slept okay. No CP or SOB. No n/v. Exam Narrative: AF 97.7 129/60 63 18 100% ra Gen - NARD Chest - distant BS, nml RR CV - RRR S1/S2; tele showing no significant dysrhythmias Abd - soft, NT/ND, +BS - Antonio secured draining clear yellow urine Ext - no pedal edema Psych - normal mood and affect. Patient is pleasant and cooperative. Skin - warm and dry. Objective Data Vital Signs Vital Signs: Vital Signs - 24 hr 11/22/23 18:00 11/22/23 19:52 11/22/23 20:00 Temperature 97.5 F L Pulse Rate 104 H 90 82 Respiratory Rate 18 Blood Pressure 131/73 Pulse Oximetry 99 Oxygen Delivery Fraction of Inspired Oxygen 11/22/23 22:00 11/22/23 23:55 11/23/23 02:24 Temperature 97.8 F Pulse Rate 94 97 Respiratory Rate 18 Blood Pressure 135/60 Pulse Oximetry 99 98 Oxygen Delivery Room Air Fraction of Inspired Oxygen 21 11/23/23 00:00 11/23/23 05:06 11/23/23 02:00 Temperature 97.6 F Pulse Rate 94 73 86 Respiratory Rate 20 Blood Pressure 124/70 Pulse Oximetry 96 Oxygen Delivery Fraction of Inspired Oxygen 11/23/23 04:00 11/23/23 06:00 11/23/23 08:10 Temperature 97.3 F L Pulse Rate 78 81 93 Respiratory Rate 20 Blood Pressure 132/68 Pulse Oximetry 99 Oxygen Delivery Fraction of Inspired Oxygen 11/23/23 09:40 11/23/23 08:00 11/23/23 08:00 Temperature Pulse Rate 121 H Respiratory Rate Blood Pressure Pulse Oximetry Oxygen Delivery Room Air Room Air Fraction of Inspired Oxygen 11/23/23 10:00 11/23/23 12:00 11/23/23 14:00 Temperature Pulse Rate 102 H 100 89 Respiratory Rate Blood Pressure Pulse Oximetry Oxygen Delivery Fraction of Inspired Oxygen 11/23/23 16:16 Temperature 97.7 F Pulse Rate 63 Respiratory Rate 18 Blood Pressure 129/60 Pulse Oximetry 100 Oxygen Delivery Fraction of I
--- NOTE | 2023-11-23 18:30 | PC.NURSE ---
This patient, Travis Sears, was transferred to [facility] on 11/23/23 at 1830. Personal belongings sent with patient. Report given to Sondra. Appropriate documentation sent with patient.
[2023-11-23 19:21] LABS: Glucose Point of Care 121 mg/dl (65-105)
[2023-11-23] MEDS: QUEtiapine FUMARATE 25 MG TABLET PO (21:16)
[2023-11-23] MEDS: SENNA/DOCUSATE SODIUM TABLET 1 TAB PO (21:16)
[2023-11-24 00:22] LABS: Glucose Point of Care 84 mg/dl (65-105)
[2023-11-24 05:38] LABS: Glucose Point of Care 75 mg/dl (65-105)
[2023-11-24 06:07] VITALS: BP 116/61; PULSE 73; RESP 18; TEMP 36.3; O2SAT 99
[2023-11-24 06:52] LABS: Anion Gap 8 mmol/L (4-12); Blood Urea Nitrogen 39 mg/dL (9-20); Calcium 9.3 mg/dL (8.4-10.2); Carbon Dioxide 28 mmol/L (22-30); Chloride 99 mmol/L (98-107); Estimated CRCL calculation 43 ml/min; Estimated Glomerular Filt Rate 54; Glucose 75 mg/dL (65-110); Potassium 4.1 mmol/L (3.4-5.0); Sodium 135 mmol/L (137-145)
[2023-11-24] MEDS: HEPARIN SODIUM 5,000 UNITS/ML VIAL 5000 UNITS SUB-Q ×2 (09:42→20:59)
[2023-11-24] MEDS: PREGABALIN (*CRX) 75 MG CAPSULE PO ×3 (09:42→18:10)
[2023-11-24] MEDS: FINASTERIDE 5 MG TABLET PO (09:42)
[2023-11-24] MEDS: DULoxetine HCL 20 MG CAPSULE.DR PO ×2 (09:42→18:10)
[2023-11-24] MEDS: TAMSULOSIN HCL 0.4 MG CAPSULE PO (09:42)
[2023-11-24] MEDS: LIDOCAINE 5% PATCH 1 PATCH TOPICAL (09:43)
[2023-11-24] MEDS: cefTRIAXone 2 GM/NS 100 ML 2 GM/100 ML BAG IVPB (09:44)
--- NOTE | 2023-11-24 11:19 | PM.IMPN ---
Progress Note: A&P Assessment and Plan (1) Accidental overdose: Code(s): T50.901A - Poisoning by unspecified drugs, medicaments and biological substances, accidental (unintentional), initial encounter Status: Acute (2) PAF (paroxysmal atrial fibrillation): Code(s): I48.0 - Paroxysmal atrial fibrillation Status: Acute (3) BPH loc w urin obs/LUTS: Code(s): N40.1 - Benign prostatic hyperplasia with lower urinary tract symptoms Status: Acute (4) CKD (chronic kidney disease): Qualifiers: Chronic kidney disease stage: unspecified stage Qualified Code(s): N18.9 - Chronic kidney disease, unspecified Code(s): N18.9 - Chronic kidney disease, unspecified Status: Chronic (5) Discitis: Qualifiers: Spinal region: lumbar Qualified Code(s): M46.46 - Discitis, unspecified, lumbar region Code(s): M46.40 - Discitis, unspecified, site unspecified Status: Inactive Plan Patient is admitted to [facility] after unintentional and accidental overdose. Patient still having some mild symptoms related to the medications. Glucose is stable. Continue to monitor with fingerstick blood sugars and he has hypoglycemia protocol available as needed. Will resume his IV antibiotics. Will resume a majority of his home medications that have been verified. His Antonio catheter has been changed out about 5 days ago so will not perform this now. He does not want to go back to the rehab facility that he does left from so have care coordination make alternative arrangements. Start PT and OT. Increase activity as tolerated. Continue to monitor closely. Watch renal function. 11/23/23 - Patient feels well. He has recovered from the inadvertent medication overdose. Continue current home meds. Okay to stop tele. Move to medical floor. Awaiting placement. 11/24/23 - No issues. Computer issues at the insurance company will delay placement. Continue abx through December 15. Add Miralax. DVT prophylaxis -heparin Code status - DNR Subjective Date/time seen: 11/24/23 11:19 Interval history: 78yo male with atrial fib, BPH, CKD, hx of ITP and HTN here for accidental overdose. Feeling well. No complaints. Up walking with a cane now. Complains of constipation Exam Narrative: AF 97.3 116/61 73 18 99% ra Gen - NARD Chest - distant BS, nml RR CV - RRR S1/S2 Abd - soft, NT/ND, +BS - Antonio secured draining clear yellow urine Ext - no pedal edema Psych - normal mood and affect. Patient is pleasant and cooperative. Skin - warm and dry. Objective Data Vital Signs Vital Signs: Vital Signs - 24 hr 11/23/23 12:00 11/23/23 14:00 11/23/23 16:16 Temperature 97.7 F Pulse Rate 100 89 63 Respiratory Rate 18 Blood Pressure 129/60 Pulse Oximetry 100 Oxygen Delivery 11/23/23 20:52 11/23/23 20:00 11/24/23 06:07 Temperature 97.0 F L 97.3 F L Pulse Rate 93 73 Respiratory Rate 20 18 Blood Pressure 115/60 116/61 Pulse Oximetry 100 99 Oxygen Delivery Room Air Intake/Output Intake/Output: Intake & Output 11/21/23 11/22/23 11/23/23 11/24/23 23:59 23:59 23:59 23:59 Intake Total 1220 1805 818 Output Total 950 1350 600 Balance 270 455 218 Meds/Results Medications: Active Medications Generic Name Dose Route Start Last Admin Trade Name Freq PRN Reason Stop Dose Admin Duloxetine HCl 20 mg 11/22/23 09:00 11/24/23 09:42 Duloxetine Hcl 20 Mg Capsule.Dr PO 20 mg BID TRINA Administration Famotidine 20 mg 11/22/23 09:00 11/24/23 09:46 Famotidine 20 Mg Tablet PO Not Given Q12HR TRINA Finasteride 5 mg 11/22/23 09:00 11/24/23 09:42 Finasteride 5 Mg Tablet PO 5 mg DAILY TRINA Administration Heparin Sodium (Porcine) 5,000 units 11/22/23 09:00 11/24/23 09:42 Heparin Sodium 5,000 Units/Ml Vial SUB-Q 12/22/23 08:59 5,000 units Q12H TRINA Administration Hydroxyzine HCl 25 mg 11/22/23 08:51
[2023-11-24 11:43] LABS: Glucose Point of Care 81 mg/dl (65-105)
[2023-11-24] MEDS: DAPTOmycin 500 MG in SODIUM CHLORIDE 0.9% IV 50 ML 100 MG IVPB (11:52)
[2023-11-24] MEDS: polyethylene glycoL 3350 17 GM POWD.PACK PO (12:14)
[2023-11-24 14:00] VITALS: BP 122/62; PULSE 87; RESP 18; TEMP 36.3; O2SAT 100
[2023-11-24 18:23] LABS: Glucose Point of Care 143 mg/dl (65-105)
[2023-11-24] MEDS: SENNA/DOCUSATE SODIUM TABLET 1 TAB PO (20:58)
[2023-11-24] MEDS: QUEtiapine FUMARATE 25 MG TABLET PO (20:59)
[2023-11-24] MEDS: FAMOTIDINE 20 MG TABLET PO (20:59)
[2023-11-24 21:55] VITALS: BP 127/63; PULSE 89; RESP 18; TEMP 36.9; O2SAT 95
[2023-11-25] LABS: Glucose Point of Care 84 mg/dl (65-105)
[2023-11-25 06:00] VITALS: BP 121/65; PULSE 75; RESP 18; TEMP 36.6; O2SAT 98
[2023-11-25 06:44] LABS: Glucose Point of Care 83 mg/dl (65-105)
--- NOTE | 2023-11-25 07:29 | PC.NURSE ---
On 11/25/23, the ADVISORY SOFTWARE ENGINEER, [ Sol], provided care and completed [facility] documentation on this patient. I have reviewed the ADVISORY SOFTWARE ENGINEER's documentation and agree with the findings.
[2023-11-25] MEDS: polyethylene glycoL 3350 17 GM POWD.PACK PO (08:25)
[2023-11-25] MEDS: HEPARIN SODIUM 5,000 UNITS/ML VIAL 5000 UNITS SUB-Q ×2 (08:25→21:19)
[2023-11-25] MEDS: TAMSULOSIN HCL 0.4 MG CAPSULE PO (08:25)
[2023-11-25] MEDS: FAMOTIDINE 20 MG TABLET PO ×2 (08:25→21:19)
[2023-11-25] MEDS: PREGABALIN (*CRX) 75 MG CAPSULE PO ×3 (08:25→16:49)
[2023-11-25] MEDS: LIDOCAINE 5% PATCH 1 PATCH TOPICAL (08:25)
[2023-11-25] MEDS: cefTRIAXone 2 GM/NS 100 ML 2 GM/100 ML BAG IVPB (08:25)
[2023-11-25] MEDS: DULoxetine HCL 20 MG CAPSULE.DR PO ×2 (08:25→16:49)
[2023-11-25] MEDS: FINASTERIDE 5 MG TABLET PO (08:25)
[2023-11-25] MEDS: DAPTOmycin 500 MG in SODIUM CHLORIDE 0.9% IV 50 ML 100 MG IVPB (10:30)
[2023-11-25 11:34] LABS: Glucose Point of Care 99 mg/dl (65-105)
[2023-11-25 14:00] VITALS: BP 104/48; PULSE 88; RESP 20; TEMP 36.6; O2SAT 92
--- NOTE | 2023-11-25 16:32 | PM.IMPN ---
Progress Note: A&P Assessment and Plan (1) Accidental overdose: Code(s): T50.901A - Poisoning by unspecified drugs, medicaments and biological substances, accidental (unintentional), initial encounter Status: Acute (2) PAF (paroxysmal atrial fibrillation): Code(s): I48.0 - Paroxysmal atrial fibrillation Status: Acute (3) BPH loc w urin obs/LUTS: Code(s): N40.1 - Benign prostatic hyperplasia with lower urinary tract symptoms Status: Acute (4) CKD (chronic kidney disease): Qualifiers: Chronic kidney disease stage: unspecified stage Qualified Code(s): N18.9 - Chronic kidney disease, unspecified Code(s): N18.9 - Chronic kidney disease, unspecified Status: Chronic (5) Discitis: Qualifiers: Spinal region: lumbar Qualified Code(s): M46.46 - Discitis, unspecified, lumbar region Code(s): M46.40 - Discitis, unspecified, site unspecified Status: Inactive Plan Patient is admitted to [facility] after unintentional and accidental overdose. Patient still having some mild symptoms related to the medications. Glucose is stable. Continue to monitor with fingerstick blood sugars and he has hypoglycemia protocol available as needed. Will resume his IV antibiotics. Will resume a majority of his home medications that have been verified. His Antonio catheter has been changed out about 5 days ago so will not perform this now. He does not want to go back to the rehab facility that he does left from so have care coordination make alternative arrangements. Start PT and OT. Increase activity as tolerated. Continue to monitor closely. Watch renal function. 11/23/23 - Patient feels well. He has recovered from the inadvertent medication overdose. Continue current home meds. Okay to stop tele. Move to medical floor. Awaiting placement. 11/24/23 - No issues. Computer issues at the insurance company will delay placement. Continue abx through December 15. Add Miralax. 11/25/23 - +BMs now. Feels well. Working well with therapy. Continue IV abx. Check labs on Monday DVT prophylaxis -heparin Code status - DNR Subjective Date/time seen: 11/25/23 16:32 Interval history: 78yo male with atrial fib, BPH, CKD, hx of ITP and HTN here for accidental overdose. No problems overnight. Walking well up to 60ft with therapy. Exam Narrative: AF 97.9 35117 88 20 92% ra Gen - NARD Chest - distant BS, nml RR CV - RRR S1/S2 Abd - soft, NT/ND, +BS - Antonio secured draining clear yellow urine Ext - no pedal edema Psych - normal mood and affect. Skin - warm and dry. Objective Data Vital Signs Vital Signs: Vital Signs - 24 hr 11/24/23 21:55 11/24/23 20:00 11/25/23 06:00 Temperature 98.4 F 97.9 F Pulse Rate 89 75 Respiratory Rate 18 18 Blood Pressure 127/63 121/65 Pulse Oximetry 95 98 Oxygen Delivery Room Air 11/25/23 08:00 11/25/23 14:00 Temperature 97.9 F Pulse Rate 88 Respiratory Rate 20 Blood Pressure 104/48 L Pulse Oximetry 92 Oxygen Delivery Room Air Intake/Output Intake/Output: Intake & Output 11/22/23 11/23/23 11/24/23 11/25/23 23:59 23:59 23:59 23:59 Intake Total 1220 1855 1863 696 Output Total 950 1350 1150 1800 Balance 270 505 713 -1104 Meds/Results Medications: Active Medications Generic Name Dose Route Start Last Admin Trade Name Freq PRN Reason Stop Dose Admin Duloxetine HCl 20 mg 11/22/23 09:00 11/25/23 08:25 Duloxetine Hcl 20 Mg Capsule.Dr PO 20 mg BID TRINA Administration Famotidine 20 mg 11/22/23 09:00 11/25/23 08:25 Famotidine 20 Mg Tablet PO 20 mg Q12HR TRINA Administration Finasteride 5 mg 11/22/23 09:00 11/25/23 08:25 Finasteride 5 Mg Tablet PO 5 mg DAILY TRINA Administration Heparin Sodium (Porcine) 5,000 units 11/22/23 09:00 11/25/23 08:25 Heparin Sodium 5,000 Units/Ml Vial SUB-Q 12/22/23 08:59 5,000 units Q12H TRINA Administration
[2023-11-25] MEDS: SENNA/DOCUSATE SODIUM TABLET 1 TAB PO (21:19)
[2023-11-25] MEDS: QUEtiapine FUMARATE 25 MG TABLET PO (21:19)
[2023-11-25 21:47] VITALS: BP 123/66; PULSE 79; RESP 16; TEMP 36.6; O2SAT 100
[2023-11-25 23:38] LABS: Glucose Point of Care 95 mg/dl (65-105)
[2023-11-26 05:38] LABS: Glucose Point of Care 84 mg/dl (65-105)
[2023-11-26 06:00] VITALS: BP 111/57; PULSE 77; RESP 16; TEMP 36.6; O2SAT 98
[2023-11-26] MEDS: cefTRIAXone 2 GM/NS 100 ML 2 GM/100 ML BAG IVPB (08:22)
[2023-11-26] MEDS: HEPARIN SODIUM 5,000 UNITS/ML VIAL 5000 UNITS SUB-Q ×2 (08:23→20:26)
[2023-11-26] MEDS: polyethylene glycoL 3350 17 GM POWD.PACK PO (08:23)
[2023-11-26] MEDS: LIDOCAINE 5% PATCH 1 PATCH TOPICAL (08:23)
[2023-11-26] MEDS: FINASTERIDE 5 MG TABLET PO (08:23)
[2023-11-26] MEDS: FAMOTIDINE 20 MG TABLET PO ×2 (08:23→20:26)
[2023-11-26] MEDS: PREGABALIN (*CRX) 75 MG CAPSULE PO ×3 (08:23→17:31)
[2023-11-26] MEDS: TAMSULOSIN HCL 0.4 MG CAPSULE PO (08:23)
[2023-11-26] MEDS: DULoxetine HCL 20 MG CAPSULE.DR PO ×2 (08:23→17:31)
[2023-11-26] MEDS: DAPTOmycin 500 MG in SODIUM CHLORIDE 0.9% IV 50 ML 100 MG IVPB (10:25)
[2023-11-26 11:51] LABS: Glucose Point of Care 184 mg/dl (65-105)
[2023-11-26 13:48] VITALS: BP 127/68; PULSE 102; RESP 20; TEMP 36.6; O2SAT 100
--- NOTE | 2023-11-26 15:51 | PM.IMPN ---
Progress Note: A&P Assessment and Plan (1) Accidental overdose: Code(s): T50.901A - Poisoning by unspecified drugs, medicaments and biological substances, accidental (unintentional), initial encounter Status: Acute (2) PAF (paroxysmal atrial fibrillation): Code(s): I48.0 - Paroxysmal atrial fibrillation Status: Acute (3) BPH loc w urin obs/LUTS: Code(s): N40.1 - Benign prostatic hyperplasia with lower urinary tract symptoms Status: Acute (4) CKD (chronic kidney disease): Qualifiers: Chronic kidney disease stage: unspecified stage Qualified Code(s): N18.9 - Chronic kidney disease, unspecified Code(s): N18.9 - Chronic kidney disease, unspecified Status: Chronic (5) Discitis: Qualifiers: Spinal region: lumbar Qualified Code(s): M46.46 - Discitis, unspecified, lumbar region Code(s): M46.40 - Discitis, unspecified, site unspecified Status: Inactive Plan Patient is admitted to [facility] after unintentional and accidental overdose. Patient still having some mild symptoms related to the medications. Glucose is stable. Continue to monitor with fingerstick blood sugars and he has hypoglycemia protocol available as needed. Will resume his IV antibiotics. Will resume a majority of his home medications that have been verified. His Antonio catheter has been changed out about 5 days ago so will not perform this now. He does not want to go back to the rehab facility that he does left from so have care coordination make alternative arrangements. Start PT and OT. Increase activity as tolerated. Continue to monitor closely. Watch renal function. 11/23/23 - Patient feels well. He has recovered from the inadvertent medication overdose. Continue current home meds. Okay to stop tele. Move to medical floor. Awaiting placement. 11/24/23 - No issues. Computer issues at the insurance company will delay placement. Continue abx through December 15. Add Miralax. 11/25/23 - +BMs now. Feels well. Working well with therapy. Continue IV abx. Check labs on Monday11/26/23 - Stable. Waiting placement. Continue IV abx. Repeat labs tomorrow. DVT prophylaxis -heparin Code status - DNR Subjective Date/time seen: 11/26/23 15:51 Interval history: 78yo male with atrial fib, BPH, CKD, hx of ITP and HTN here for accidental overdose. Feeling well. Up walking with cane. Exam Narrative: AF 97.8 127/68 102 20 100% ra Gen - NARD Chest - distant BS, nml RR CV - RRR S1/S2 Abd - soft, NT/ND, +BS - Antonio secured draining clear yellow urine Ext - no pedal edema Psych - normal mood and affect. Skin - warm and dry. Objective Data Vital Signs Vital Signs: Vital Signs - 24 hr 11/25/23 21:47 11/25/23 21:10 11/26/23 06:00 Temperature 97.8 F 97.8 F Pulse Rate 79 77 Respiratory Rate 16 16 Blood Pressure 123/66 111/57 L Pulse Oximetry 100 98 Oxygen Delivery Room Air 11/26/23 08:00 11/26/23 13:48 Temperature 97.8 F Pulse Rate 102 H Respiratory Rate 20 Blood Pressure 127/68 Pulse Oximetry 100 Oxygen Delivery Room Air Intake/Output Intake/Output: Intake & Output 11/23/23 11/24/23 11/25/23 11/26/23 23:59 23:59 23:59 23:59 Intake Total 1855 1863 1026 1632 Output Total 1350 1150 1800 825 Balance 505 713 -710 807 Meds/Results Medications: Active Medications Generic Name Dose Route Start Last Admin Trade Name Allenq PRN Reason Stop Dose Admin Duloxetine HCl 20 mg 11/22/23 09:00 11/26/23 08:23 Duloxetine Hcl 20 Mg Capsule. PO 20 mg BID TRINA Administration Famotidine 20 mg 11/22/23 09:00 11/26/23 08:23 Famotidine 20 Mg Tablet PO 20 mg Q12HR TRINA Administration Finasteride 5 mg 11/22/23 09:00 11/26/23 08:23 Finasteride 5 Mg Tablet PO 5 mg DAILY TRINA Administration Heparin Sodium (Porcine) 5,000 units 11/22/23 09:00 11/26/23 08:23 Heparin Sodium 5,000 Units/Ml Via
[2023-11-26 18:09] LABS: Glucose Point of Care 196 mg/dl (65-105)
[2023-11-26] MEDS: QUEtiapine FUMARATE 25 MG TABLET PO (20:26)
[2023-11-26] MEDS: SENNA/DOCUSATE SODIUM TABLET 1 TAB PO (20:26)
[2023-11-26 21:00] VITALS: BP 123/60; PULSE 97; RESP 16; TEMP 36.6; O2SAT 99
[2023-11-26 23:21] LABS: Glucose Point of Care 102 mg/dl (65-105)
[2023-11-27 04:54] LABS: Basophils Percent Auto 0.5 % (0.2-1.2); Eosinophils Absolute Auto 0.2 K/mm3 (0-0.3); Eosinophils Percent Auto 2.3 % (0-4.4); Hematocrit 30.8 % (42.0-52.0); Hemoglobin 9.9 g/dL (14.0-18.0); Immature Granulocyte Absolute 0.03 K/mm3 (0.00-0.031); Immature Granulocyte Percent A 0.4 % (0-0.5); Lymphocytes Absolute Auto 1.73 K/mm3 (0.9-3.2); Lymphocytes Percent Auto 23.8 % (18.3-44.2); Mean Corpuscular HGB Conc 32.1 g/dl (32-36); Mean Corpuscular Hemoglobin 30.1 pg (26-34); Mean Corpuscular Volume 93.6 fl (80-100); Mean Platelet Volume 8.9 fl (7.4-10.4); Monocytes Absolute Auto 0.9 K/mm3 (0.1-0.6); Monocytes Percent Auto 12.2 % (2.6-8.5); Neutrophils Absolute Auto 4.4 K/mm3 (1.3-6.7); Neutrophils Percent Auto 60.8 % (45.5-73.1); Platelet Count Result 179 k/mm3 (150-375); Red Blood Count 3.29 M/mm3 (4.6-6.20); Red Cell Distribution Width 15.2 % (11.5-14.5); White Blood Count 7.3 K/mm3 (4.5-10.0)
[2023-11-27 05:05] LABS: Alanine Aminotransferase 23 U/L (6-50); Albumin Level 3.4 g/dL (3.5-5.1); Alkaline Phosphatase 86 U/L (38-126); Anion Gap 5 mmol/L (4-12); Aspartate Amino Transferase 27 U/L (17-59); Bilirubin,Total 0.3 mg/dL (0.2-1.3); Blood Urea Nitrogen 32 mg/dL (9-20); Calcium 8.6 mg/dL (8.4-10.2); Carbon Dioxide 30 mmol/L (22-30); Chloride 102 mmol/L (98-107); Estimated CRCL calculation 50 ml/min; Estimated Glomerular Filt Rate > 60; Glucose 84 mg/dL (65-110); Magnesium 1.8 mg/dL (1.6-2.3); Phosphorus 3.7 mg/dL (2.5-4.5); Sodium 137 mmol/L (137-145)
[2023-11-27 05:43] VITALS: BP 106/60; PULSE 72; RESP 16; TEMP 36.6; O2SAT 99
[2023-11-27 05:43] LABS: Glucose Point of Care 94 mg/dl (65-105)
[2023-11-27 09:14] LABS: Methylmalonic Acid 759 nmol/L (69-390)
[2023-11-27] MEDS: DULoxetine HCL 20 MG CAPSULE.DR PO ×2 (09:30→18:07)
[2023-11-27] MEDS: polyethylene glycoL 3350 17 GM POWD.PACK PO (09:30)
[2023-11-27] MEDS: PREGABALIN (*CRX) 75 MG CAPSULE PO ×3 (09:30→18:07)
[2023-11-27] MEDS: HEPARIN SODIUM 5,000 UNITS/ML VIAL 5000 UNITS SUB-Q ×2 (09:30→20:28)
[2023-11-27] MEDS: FAMOTIDINE 20 MG TABLET PO ×2 (09:30→20:29)
[2023-11-27] MEDS: FINASTERIDE 5 MG TABLET PO (09:31)
[2023-11-27] MEDS: TAMSULOSIN HCL 0.4 MG CAPSULE PO (09:31)
[2023-11-27] MEDS: cefTRIAXone 2 GM/NS 100 ML 2 GM/100 ML BAG IVPB (09:31)
[2023-11-27] MEDS: LIDOCAINE 5% PATCH 1 PATCH TOPICAL (09:31)
[2023-11-27 11:34] LABS: Glucose Point of Care 99 mg/dl (65-105)
--- NOTE | 2023-11-27 12:02 | PCNFU ---
Nutrition Follow-Up Complete: Severe protein calorie malnutrition related to chronic illness (discitis) and loss of appetite as evidenced by weight loss 15%/4 months;intakes <75% needs >1 month; mild to moderate muscle wasting and fat loss to temporalis, clavicles, shoulders. Goal:Adequate PO intake at least 75% meals and supplements Pt meeting goal, continue with same goal Pt current nutrition is Heart healthy, Ensure compact BID. Nutrition recommendation: Increased ensure compact to TID Last recorded weight is 79 kg. Bowel Motility: +BM 11/23 Labs Reviewed: Hgb:9.9, HCT:30.8, Alb:3.4, BUN:32 Meds Noted: senokot, miralax, pepcid Skin: WNL Additional Notes: Pt reports a good appetite, states the food is good, eating much better, likes then Ensure compacts, will increase to TID. Monitoring intakes, weights, labs, supplement tolerance, plan of care. Follow up in 5 days
[2023-11-27] MEDS: DAPTOmycin 500 MG in SODIUM CHLORIDE 0.9% IV 50 ML 100 MG IVPB (12:29)
--- NOTE | 2023-11-27 13:21 | PM.IMPN ---
Progress Note: A&P Assessment and Plan (1) Accidental overdose: Code(s): T50.901A - Poisoning by unspecified drugs, medicaments and biological substances, accidental (unintentional), initial encounter Status: Acute (2) PAF (paroxysmal atrial fibrillation): Code(s): I48.0 - Paroxysmal atrial fibrillation Status: Acute (3) BPH loc w urin obs/LUTS: Code(s): N40.1 - Benign prostatic hyperplasia with lower urinary tract symptoms Status: Acute (4) CKD (chronic kidney disease): Qualifiers: Chronic kidney disease stage: unspecified stage Qualified Code(s): N18.9 - Chronic kidney disease, unspecified Code(s): N18.9 - Chronic kidney disease, unspecified Status: Chronic (5) Discitis: Qualifiers: Spinal region: lumbar Qualified Code(s): M46.46 - Discitis, unspecified, lumbar region Code(s): M46.40 - Discitis, unspecified, site unspecified Status: Inactive Plan Patient is admitted to [facility] after unintentional and accidental overdose. Patient still having some mild symptoms related to the medications. Glucose is stable. Continue to monitor with fingerstick blood sugars and he has hypoglycemia protocol available as needed. Will resume his IV antibiotics. Will resume a majority of his home medications that have been verified. His Antonio catheter has been changed out about 5 days ago so will not perform this now. He does not want to go back to the rehab facility that he does left from so have care coordination make alternative arrangements. Start PT and OT. Increase activity as tolerated. Continue to monitor closely. Watch renal function. 11/23/23 - Patient feels well. He has recovered from the inadvertent medication overdose. Continue current home meds. Okay to stop tele. Move to medical floor. Awaiting placement. 11/24/23 - No issues. Computer issues at the insurance company will delay placement. Continue abx through December 15. Add Miralax. 11/25/23 - +BMs now. Feels well. Working well with therapy. Continue IV abx. Check labs on Monday11/26/23 - Stable. Waiting placement. Continue IV abx. Repeat labs tomorrow. 11/27/23 - Hgb low but seems to be chronic. CMP normal. TCK pending. Iron studies in July consistent with anemia of chronic disease. B12 low end of normal. MMA elevated so will start B12. Awaiting placement. Check labs periodically. DVT prophylaxis -heparin Code status - DNR Subjective Date/time seen: 11/27/23 13:21 Interval history: 78yo male with atrial fib, BPH, CKD, hx of ITP and HTN here for accidental overdose. No complaints. Up walking in the halls with therapy. Exam Narrative: AF 97.8 106/60 72 16 99% ra Gen - NARD Chest - CTA bilaterally, nml RR CV - RRR S1/S2 Abd - soft, NT/ND, +BS - Antonio secured draining clear yellow urine Ext - no pedal edema Psych - normal mood and affect. Skin - warm and dry. Objective Data Vital Signs Vital Signs: Vital Signs - 24 hr 11/26/23 13:48 11/26/23 21:00 11/26/23 20:25 Temperature 97.8 F 97.9 F Pulse Rate 102 H 97 Respiratory Rate 20 16 Blood Pressure 127/68 123/60 Pulse Oximetry 100 99 Oxygen Delivery Room Air 11/27/23 05:43 11/27/23 08:00 Temperature 97.8 F Pulse Rate 72 Respiratory Rate 16 Blood Pressure 106/60 Pulse Oximetry 99 Oxygen Delivery Room Air Intake/Output Intake/Output: Intake & Output 11/24/23 11/25/23 11/26/23 11/27/23 23:59 23:59 23:59 23:59 Intake Total 1863 1026 2254 1358 Output Total 1150 1800 1025 600 Balance 713 -534 1229 758 Meds/Results Medications: Active Medications Generic Name Dose Route Start Last Admin Trade Name Jules PRN Reason Stop Dose Admin Duloxetine HCl 20 mg 11/22/23 09:00 11/27/23 09:30 Duloxetine Hcl 20 Mg Capsule.Dr PO 20 mg BID TRINA Administration Famotidine 20 mg 11/22/23 09:00 11/27/23 09:30 Famotidine 20 Mg Tablet PO 20 mg
[2023-11-27 13:37] LABS: Creatine Kinase 26 U/L (55-170)
[2023-11-27 14:00] VITALS: BP 128/65; PULSE 96; RESP 16; TEMP 36.5; O2SAT 100
[2023-11-27 18:07] LABS: Glucose Point of Care 180 mg/dl (65-105)
[2023-11-27] MEDS: SENNA/DOCUSATE SODIUM TABLET 1 TAB PO (20:28)
[2023-11-27] MEDS: QUEtiapine FUMARATE 25 MG TABLET PO (20:29)
[2023-11-27 22:00] VITALS: BP 127/58; PULSE 96; RESP 20; TEMP 36.8; O2SAT 100
[2023-11-27 23:41] LABS: Glucose Point of Care 97 mg/dl (65-105)
[2023-11-28 06:00] VITALS: BP 114/57; PULSE 80; RESP 18; TEMP 36.5; O2SAT 98
[2023-11-28] MEDS: cefTRIAXone 2 GM/NS 100 ML 2 GM/100 ML BAG IVPB (08:15)
[2023-11-28] MEDS: CYANOCOBALAMIN 1,000 MCG TABLET 1000 MCG PO (08:18)
[2023-11-28] MEDS: HEPARIN SODIUM 5,000 UNITS/ML VIAL 5000 UNITS SUB-Q ×2 (08:18→20:27)
[2023-11-28] MEDS: DULoxetine HCL 20 MG CAPSULE.DR PO ×2 (08:18→17:19)
[2023-11-28] MEDS: PREGABALIN (*CRX) 75 MG CAPSULE PO ×3 (08:18→17:19)
[2023-11-28] MEDS: TAMSULOSIN HCL 0.4 MG CAPSULE PO (08:18)
[2023-11-28] MEDS: FAMOTIDINE 20 MG TABLET PO ×2 (08:18→20:27)
[2023-11-28] MEDS: FINASTERIDE 5 MG TABLET PO (08:19)
[2023-11-28] MEDS: polyethylene glycoL 3350 17 GM POWD.PACK PO (08:20)
[2023-11-28] MEDS: LIDOCAINE 5% PATCH 1 PATCH TOPICAL (08:20)
[2023-11-28] MEDS: DAPTOmycin 500 MG in SODIUM CHLORIDE 0.9% IV 50 ML 100 MG IVPB (08:20)
--- NOTE | 2023-11-28 11:39 | PCOTNOTE ---
Attempted to see Patient this A.M. Patient declined at this time due to waking up at 3 A.M. Wants to take a nap and requested therapist come back this P.M.
[2023-11-28 11:50] LABS: Glucose Point of Care 130 mg/dl (65-105)
[2023-11-28 14:00] VITALS: BP 118/61; PULSE 89; RESP 16; TEMP 37.1; O2SAT 100
[2023-11-28] MEDS: CENTRAL LINE FLUSH 10 ML IV PUSH ×3 (15:37→20:30)
--- NOTE | 2023-11-28 16:04 | PM.IMPN ---
Progress Note: A&P Assessment and Plan (1) Accidental overdose: Code(s): T50.901A - Poisoning by unspecified drugs, medicaments and biological substances, accidental (unintentional), initial encounter Status: Acute (2) PAF (paroxysmal atrial fibrillation): Code(s): I48.0 - Paroxysmal atrial fibrillation Status: Acute (3) BPH loc w urin obs/LUTS: Code(s): N40.1 - Benign prostatic hyperplasia with lower urinary tract symptoms Status: Acute (4) CKD (chronic kidney disease): Qualifiers: Chronic kidney disease stage: unspecified stage Qualified Code(s): N18.9 - Chronic kidney disease, unspecified Code(s): N18.9 - Chronic kidney disease, unspecified Status: Chronic (5) Discitis: Qualifiers: Spinal region: lumbar Qualified Code(s): M46.46 - Discitis, unspecified, lumbar region Code(s): M46.40 - Discitis, unspecified, site unspecified Status: Inactive Plan Patient is admitted to [facility] after unintentional and accidental overdose. Patient still having some mild symptoms related to the medications. Glucose is stable. Continue to monitor with fingerstick blood sugars and he has hypoglycemia protocol available as needed. Will resume his IV antibiotics. Will resume a majority of his home medications that have been verified. His Antonio catheter has been changed out about 5 days ago so will not perform this now. He does not want to go back to the rehab facility that he does left from so have care coordination make alternative arrangements. Start PT and OT. Increase activity as tolerated. Continue to monitor closely. Watch renal function. 11/23/23 - Patient feels well. He has recovered from the inadvertent medication overdose. Continue current home meds. Okay to stop tele. Move to medical floor. Awaiting placement. 11/24/23 - No issues. Computer issues at the insurance company will delay placement. Continue abx through December 15. Add Miralax. 11/25/23 - +BMs now. Feels well. Working well with therapy. Continue IV abx. Check labs on Monday11/26/23 - Stable. Waiting placement. Continue IV abx. Repeat labs tomorrow. 11/27/23 - Hgb low but seems to be chronic. CMP normal. TCK pending. Iron studies in July consistent with anemia of chronic disease. B12 low end of normal. MMA elevated so will start B12. Awaiting placement. Check labs periodically. 11/28/23 - Reviewed old records. Patient will need abx for 6 weeks total. The plan is also to have repeat MRI in 6 weeks from discharge. Would consider checking the MRI prior to stopping the abx. His doctor would not manage his IV abx as outpatient so he ko need to return to SNF. This is being arranged. He will need labs 1-2x/week with TCK once per week as least. DVT prophylaxis -heparin Code status - DNR Subjective Date/time seen: 11/28/23 16:04 Interval history: 78yo male with atrial fib, BPH, CKD, hx of ITP and HTN here for accidental overdose. No problems overnight Exam Narrative: AF 98.8 118/61 89 16 100% ra Gen - NARD Chest - Clear anterirly. nml RR CV - RRR S1/S2 Abd - soft, NT/ND, +BS - Antonio secured draining clear yellow urine Ext - no pedal edema Psych - normal mood and affect. Skin - warm and dry. Objective Data Vital Signs Vital Signs: Vital Signs - 24 hr 11/27/23 20:30 11/27/23 22:00 11/28/23 06:00 Temperature 98.3 F 97.7 F Pulse Rate 96 80 Respiratory Rate 20 18 Blood Pressure 127/58 L 114/57 L Pulse Oximetry 100 98 Oxygen Delivery Room Air 11/28/23 08:00 11/28/23 14:00 Temperature 98.8 F Pulse Rate 89 Respiratory Rate 16 Blood Pressure 118/61 Pulse Oximetry 100 Oxygen Delivery Room Air Intake/Output Intake/Output: Intake & Output 11/25/23 11/26/23 11/27/23 11/28/23 23:59 23:59 23:59 23:59 Intake Total 1026 2254 1748 1270 Output Total 1800 1025 1200 850 Balance -774 1229 548 420 Meds/Results Me
[2023-11-28] MEDS: QUEtiapine FUMARATE 25 MG TABLET PO (20:27)
[2023-11-28] MEDS: SENNA/DOCUSATE SODIUM TABLET 1 TAB PO (20:27)
[2023-11-28 22:00] VITALS: BP 118/51; PULSE 80; RESP 18; TEMP 36.6; O2SAT 98
[2023-11-29] MEDS: CENTRAL LINE FLUSH 10 ML IV PUSH ×3 (05:05→21:02)
[2023-11-29 05:58] VITALS: BP 115/56; PULSE 80; RESP 16; TEMP 37; O2SAT 99
[2023-11-29] MEDS: cefTRIAXone 2 GM/NS 100 ML 2 GM/100 ML BAG IVPB (08:52)
[2023-11-29] MEDS: FINASTERIDE 5 MG TABLET PO (08:53)
[2023-11-29] MEDS: LIDOCAINE 5% PATCH 1 PATCH TOPICAL (08:53)
[2023-11-29] MEDS: TAMSULOSIN HCL 0.4 MG CAPSULE PO (08:53)
[2023-11-29] MEDS: polyethylene glycoL 3350 17 GM POWD.PACK PO (08:53)
[2023-11-29] MEDS: HEPARIN SODIUM 5,000 UNITS/ML VIAL 5000 UNITS SUB-Q ×2 (08:53→21:02)
[2023-11-29] MEDS: DULoxetine HCL 20 MG CAPSULE.DR PO ×2 (08:53→17:23)
[2023-11-29] MEDS: CYANOCOBALAMIN 1,000 MCG TABLET 1000 MCG PO (08:54)
[2023-11-29] MEDS: PREGABALIN (*CRX) 75 MG CAPSULE PO ×3 (08:54→17:23)
[2023-11-29] MEDS: FAMOTIDINE 20 MG TABLET PO ×2 (08:54→21:02)
[2023-11-29 11:37] LABS: Glucose Point of Care 145 mg/dl (65-105)
[2023-11-29] MEDS: DAPTOmycin 500 MG in SODIUM CHLORIDE 0.9% IV 50 ML 100 MG IVPB (12:25)
--- NOTE | 2023-11-29 13:16 | PM.IMPN ---
Progress Note: A&P Assessment and Plan (1) Accidental overdose: Code(s): T50.901A - Poisoning by unspecified drugs, medicaments and biological substances, accidental (unintentional), initial encounter Status: Acute (2) PAF (paroxysmal atrial fibrillation): Code(s): I48.0 - Paroxysmal atrial fibrillation Status: Acute (3) BPH loc w urin obs/LUTS: Code(s): N40.1 - Benign prostatic hyperplasia with lower urinary tract symptoms Status: Acute (4) CKD (chronic kidney disease): Qualifiers: Chronic kidney disease stage: unspecified stage Qualified Code(s): N18.9 - Chronic kidney disease, unspecified Code(s): N18.9 - Chronic kidney disease, unspecified Status: Chronic (5) Discitis: Qualifiers: Spinal region: lumbar Qualified Code(s): M46.46 - Discitis, unspecified, lumbar region Code(s): M46.40 - Discitis, unspecified, site unspecified Status: Inactive Plan Patient is admitted to [facility] after unintentional and accidental overdose. Patient still having some mild symptoms related to the medications. Glucose is stable. Continue to monitor with fingerstick blood sugars and he has hypoglycemia protocol available as needed. Will resume his IV antibiotics. Will resume a majority of his home medications that have been verified. His Antonio catheter has been changed out about 5 days ago so will not perform this now. He does not want to go back to the rehab facility that he does left from so have care coordination make alternative arrangements. Start PT and OT. Increase activity as tolerated. Continue to monitor closely. Watch renal function. 11/23/23 - Patient feels well. He has recovered from the inadvertent medication overdose. Continue current home meds. Okay to stop tele. Move to medical floor. Awaiting placement. 11/24/23 - No issues. Computer issues at the insurance company will delay placement. Continue abx through December 15. Add Miralax. 11/25/23 - +BMs now. Feels well. Working well with therapy. Continue IV abx. Check labs on Monday11/26/23 - Stable. Waiting placement. Continue IV abx. Repeat labs tomorrow. 11/27/23 - Hgb low but seems to be chronic. CMP normal. TCK pending. Iron studies in July consistent with anemia of chronic disease. B12 low end of normal. MMA elevated so will start B12. Awaiting placement. Check labs periodically. 11/28/23 - Reviewed old records. Patient will need abx for 6 weeks total. The plan is also to have repeat MRI in 6 weeks from discharge. Would consider checking the MRI prior to stopping the abx. His doctor would not manage his IV abx as outpatient so he ko need to return to SNF. This is being arranged. He will need labs 1-2x/week with TCK once per week as least. 11/29/23- Pt awaiting placement DC with outpatient iv ABX for discitis Subjective Date/time seen: 11/29/23 13:16 Interval history: 78yo male with atrial fib, BPH, CKD, hx of ITP and HTN here for accidental overdose of insulin in SNF No problems overnight, pt awaiting placement needs to continue on IV ABX for discitis Review of Systems Review of Systems: no acute issues Exam Narrative: Friendly pleasant man Chest - Clear anterirly. nml RR CV - RRR S1/S2 Abd - soft, NT/ND, +BS - Antonio secured draining clear yellow urine Ext - no pedal edema Psych - normal mood and affect. Skin - warm and dry. Objective Data Vital Signs Vital Signs: Vital Signs - 24 hr 11/28/23 14:00 11/28/23 20:30 11/28/23 22:00 Temperature 37.1 C 36.6 C Pulse Rate 89 80 Respiratory Rate 16 18 Blood Pressure 118/61 118/51 L Pulse Oximetry 100 98 Oxygen Delivery Room Air 11/29/23 05:58 Temperature 37.0 C Pulse Rate 80 Respiratory Rate 16 Blood Pressure 115/56 L Pulse Oximetry 99 Oxygen Delivery Intake/Output Intake/Output: Intake & Output 11/26/23 11/27/23 11/28/23 11/29/23 23:59 23:59 23
[2023-11-29 13:51] VITALS: BP 135/55; PULSE 89; RESP 16; TEMP 36.7; O2SAT 98
[2023-11-29 17:53] LABS: Glucose Point of Care 150 mg/dl (65-105)
[2023-11-29 20:20] VITALS: BP 122/67; PULSE 95; RESP 12; TEMP 37.3; O2SAT 98
[2023-11-29] MEDS: QUEtiapine FUMARATE 25 MG TABLET PO (21:02)
[2023-11-29] MEDS: SENNA/DOCUSATE SODIUM TABLET 1 TAB PO (21:02)
[2023-11-30 05:26] VITALS: BP 121/65; PULSE 68; RESP 14; TEMP 36.7; O2SAT 98
[2023-11-30] MEDS: CENTRAL LINE FLUSH 10 ML IV PUSH ×4 (05:58→06:01)
[2023-11-30] MEDS: cefTRIAXone 2 GM/NS 100 ML 2 GM/100 ML BAG IVPB (08:10)
[2023-11-30] MEDS: polyethylene glycoL 3350 17 GM POWD.PACK PO (08:11)
[2023-11-30] MEDS: DULoxetine HCL 20 MG CAPSULE.DR PO (08:11)
[2023-11-30] MEDS: PREGABALIN (*CRX) 75 MG CAPSULE PO (08:11)
[2023-11-30] MEDS: TAMSULOSIN HCL 0.4 MG CAPSULE PO (08:11)
[2023-11-30] MEDS: LIDOCAINE 5% PATCH 1 PATCH TOPICAL (08:11)
[2023-11-30] MEDS: HEPARIN SODIUM 5,000 UNITS/ML VIAL 5000 UNITS SUB-Q (08:12)
[2023-11-30] MEDS: DAPTOmycin 500 MG in SODIUM CHLORIDE 0.9% IV 50 ML 100 MG IVPB (08:12)
[2023-11-30] MEDS: CYANOCOBALAMIN 1,000 MCG TABLET 1000 MCG PO (08:12)
[2023-11-30] MEDS: FAMOTIDINE 20 MG TABLET PO (08:12)
[2023-11-30] MEDS: FINASTERIDE 5 MG TABLET PO (08:12)
--- NOTE | 2023-11-30 11:25 | PM.DS ---
DS: Admitting Diagnosis Discharge Date 11/30/2023 Admitting Diagnosis Accidental overdose DS: Discharge Diagnosis Discharge Diagnosis (1) Accidental overdose: Code(s): T50.901A - Poisoning by unspecified drugs, medicaments and biological substances, accidental (unintentional), initial encounter Status: Acute (2) PAF (paroxysmal atrial fibrillation): Code(s): I48.0 - Paroxysmal atrial fibrillation Status: Acute (3) BPH loc w urin obs/LUTS: Code(s): N40.1 - Benign prostatic hyperplasia with lower urinary tract symptoms Status: Acute (4) CKD (chronic kidney disease): Qualifiers: Chronic kidney disease stage: unspecified stage Qualified Code(s): N18.9 - Chronic kidney disease, unspecified Code(s): N18.9 - Chronic kidney disease, unspecified Status: Chronic (5) Discitis: Qualifiers: Spinal region: lumbar Qualified Code(s): M46.46 - Discitis, unspecified, lumbar region Code(s): M46.40 - Discitis, unspecified, site unspecified Status: Inactive Plan Patient is admitted to [facility] after unintentional and accidental overdose. Patient still having some mild symptoms related to the medications. Glucose is stable. Continue to monitor with fingerstick blood sugars and he has hypoglycemia protocol available as needed. Will resume his IV antibiotics. Will resume a majority of his home medications that have been verified. His At[place]io catheter has been changed out about 5 days ago so will not perform this now. He does not want to go back to the rehab facility that he does left from so have care coordination make alternative arrangements. Start PT and OT. Increase activity as tolerated. Continue to monitor closely. Watch renal function. 11/23/23 - Patient feels well. He has recovered from the inadvertent medication overdose. Continue current home meds. Okay to stop tele. Move to medical floor. Awaiting placement. 11/24/23 - No issues. Computer issues at the insurance company will delay placement. Continue abx through December 15. Add Miralax. 11/25/23 - +BMs now. Feels well. Working well with therapy. Continue IV abx. Check labs on Monday11/26/23 - Stable. Waiting placement. Continue IV abx. Repeat labs tomorrow. 11/27/23 - Hgb low but seems to be chronic. CMP normal. TCK pending. Iron studies in July consistent with anemia of chronic disease. B12 low end of normal. MMA elevated so will start B12. Awaiting placement. Check labs periodically. 11/28/23 - Reviewed old records. Patient will need abx for 6 weeks total. The plan is also to have repeat MRI in 6 weeks from discharge. Would consider checking the MRI prior to stopping the abx. His doctor would not manage his IV abx as outpatient so he ko need to return to SNF. This is being arranged. He will need labs 1-2x/week with TCK once per week as least. 11/29/23- Pt awaiting DC home with outpatient iv ABX for discitis until 12/27. Apparently pt went into AF in his other facility was admitted her on heparin twice a day this has been converted to eliquis on DC. DS: Summary Hospital Course Hospital Course: 78yo male with atrial fib, BPH, CKD, hx of ITP and HTN here for accidental overdose of insulin in SNF No problems overnight, pt DC home on to continue on IV ABX for discitis until 12/27 Time Spent with Patient Time attestation: Total time spent providing and/or coordinating discharge services:50 minutes on day of DC Exam Narrative: Friendly pleasant man Chest - Clear anterirly. nml RR CV - RRR S1/S2 Abd - soft, NT/ND, +BS - Antonio secured draining clear yellow urine Ext - no pedal edema Psych - normal mood and affect. Skin - warm and dry. DS: Data Data Completed and Pending Labs on day of discharge: Labs from last 24 hours 11/29/23 11/29/23 17:51 11:34 POC Capillary Glucose 150 H 145 H Discharge Plan Discharge Attending physician on discharge:
[2023-11-30 12:09] LABS: Hematocrit 34.9 % (42.0-52.0); Mean Corpuscular HGB Conc 31.5 g/dl (32-36); Mean Corpuscular Hemoglobin 29.8 pg (26-34); Mean Corpuscular Volume 94.6 fl (80-100); Platelet Count Result 183 k/mm3 (150-375); Red Blood Count 3.69 M/mm3 (4.6-6.20); White Blood Count 6.6 K/mm3 (4.5-10.0)
[2023-11-30 12:21] LABS: Anion Gap 10 mmol/L (4-12); Blood Urea Nitrogen 30 mg/dL (9-20); Calcium 9.1 mg/dL (8.4-10.2); Carbon Dioxide 28 mmol/L (22-30); Chloride 100 mmol/L (98-107); Creatine Kinase 36 U/L (55-170); Estimated CRCL calculation 43 ml/min; Estimated Glomerular Filt Rate 54; Glucose 114 mg/dL (65-110); Potassium 4.1 mmol/L (3.4-5.0); Sodium 138 mmol/L (137-145)
[2023-11-30 14:00] VITALS: BP 131/70; PULSE 102; RESP 16; TEMP 36.6; O2SAT 100
== END 2023-11-30 14:52 | disposition home health service (06) ==
LOC: ANHED 11-22 00:52 → ANHIMU 11-22 02:40 → ANH3MEDSUR 11-24 09:57 → ANHIMU 12-01 07:17 → ANH3MEDSUR 12-07 07:10
PROVIDERS: Internal Medicine; Admitting Provider Internal Medicine; Emergency Provider Emergency Medicine; PCP Family Medicine; Visit Provider Family Medicine
DX: T50.901A Poisoning by unspecified drugs, medicaments and biological substances, accidental (unintentional), initial encounter (principal); I12.9 Hypertensive chronic kidney disease with stage 1 through stage 4 chronic kidney disease, or unspecified chronic kidney disease; N18.9 Chronic kidney disease, unspecified; I48.0 Paroxysmal atrial fibrillation; N40.1 Benign prostatic hyperplasia with lower urinary tract symptoms; R33.8 Other retention of urine; M46.46 Discitis, unspecified, lumbar region; Z79.620 Long term (current) use of immunosuppressive biologic; Z79.891 Long term (current) use of opiate analgesic; Z96.0 Presence of urogenital implants
CPT/HCPCS: 36415; 71045; 80048; 80053; 81001; 82550; 82948; 83605; 83735; 83921; 84100; 84443; 85025; 85027; 93005; 96365; 96366; 96367; 96372; 97110; 97116; 97161; 97165; 97530; 97535; 99285; A9270; G0378; J0696; J0878; J1644

== ENCOUNTER 2023-12-27 13:32 | Outpatient (RCR) | payer BC, SELFPAY ==
[2023-12-06 14:44] LABS: Basophils Percent Auto 0.3 % (0.2-1.2); Eosinophils Absolute Auto 0.1 K/mm3 (0-0.3); Eosinophils Percent Auto 1.6 % (0-4.4); Hematocrit 34.2 % (42.0-52.0); Hemoglobin 10.9 g/dL (14.0-18.0); Immature Granulocyte Absolute 0.02 K/mm3 (0.00-0.031); Immature Granulocyte Percent A 0.3 % (0-0.5); Lymphocytes Absolute Auto 1.25 K/mm3 (0.9-3.2); Lymphocytes Percent Auto 19.9 % (18.3-44.2); Mean Corpuscular HGB Conc 31.9 g/dl (32-36); Mean Corpuscular Hemoglobin 29.6 pg (26-34); Mean Corpuscular Volume 92.9 fl (80-100); Mean Platelet Volume 9.2 fl (7.4-10.4); Monocytes Absolute Auto 0.7 K/mm3 (0.1-0.6); Monocytes Percent Auto 11.4 % (2.6-8.5); Neutrophils Absolute Auto 4.2 K/mm3 (1.3-6.7); Neutrophils Percent Auto 66.5 % (45.5-73.1); Platelet Count Result 182 k/mm3 (150-375); Red Blood Count 3.68 M/mm3 (4.6-6.20); Red Cell Distribution Width 14.6 % (11.5-14.5); White Blood Count 6.3 K/mm3 (4.5-10.0)
[2023-12-06 14:53] LABS: Alanine Aminotransferase 18 U/L (6-50); Albumin Level 3.9 g/dL (3.5-5.1); Alkaline Phosphatase 95 U/L (38-126); Anion Gap 12 mmol/L (4-12); Aspartate Amino Transferase 24 U/L (17-59); Bilirubin,Total 0.3 mg/dL (0.2-1.3); Blood Urea Nitrogen 24 mg/dL (9-20); CRP 6.9 mg/dL (<1.0); Calcium 8.9 mg/dL (8.4-10.2); Carbon Dioxide 25 mmol/L (22-30); Chloride 99 mmol/L (98-107); Creatine Kinase 43 U/L (55-170); Estimated Glomerular Filt Rate 59; Glucose 84 mg/dL (65-110); Sodium 136 mmol/L (137-145)
[2023-12-06 18:10] LABS: Erythrocyte Sedimentation Rate 90 mm/hr (0-20)
[2023-12-13 14:54] LABS: Basophils Percent Auto 0.4 % (0.2-1.2); Eosinophils Absolute Auto 0.2 K/mm3 (0-0.3); Eosinophils Percent Auto 2.3 % (0-4.4); Hematocrit 35.1 % (42.0-52.0); Hemoglobin 11.3 g/dL (14.0-18.0); Immature Granulocyte Absolute 0.05 K/mm3 (0.00-0.031); Immature Granulocyte Percent A 0.6 % (0-0.5); Lymphocytes Absolute Auto 1.81 K/mm3 (0.9-3.2); Lymphocytes Percent Auto 21.9 % (18.3-44.2); Mean Corpuscular HGB Conc 32.2 g/dl (32-36); Mean Corpuscular Hemoglobin 29.6 pg (26-34); Mean Corpuscular Volume 91.9 fl (80-100); Mean Platelet Volume 8.7 fl (7.4-10.4); Monocytes Absolute Auto 0.6 K/mm3 (0.1-0.6); Monocytes Percent Auto 7.3 % (2.6-8.5); Neutrophils Absolute Auto 5.6 K/mm3 (1.3-6.7); Neutrophils Percent Auto 67.5 % (45.5-73.1); Platelet Count Result 268 k/mm3 (150-375); Red Blood Count 3.82 M/mm3 (4.6-6.20); Red Cell Distribution Width 14.3 % (11.5-14.5); White Blood Count 8.3 K/mm3 (4.5-10.0)
[2023-12-13 15:08] LABS: Alanine Aminotransferase 16 U/L (6-50); Alkaline Phosphatase 104 U/L (38-126); Anion Gap 8 mmol/L (4-12); Aspartate Amino Transferase 23 U/L (17-59); Bilirubin,Total 0.4 mg/dL (0.2-1.3); Blood Urea Nitrogen 23 mg/dL (9-20); Calcium 9.1 mg/dL (8.4-10.2); Carbon Dioxide 28 mmol/L (22-30); Chloride 98 mmol/L (98-107); Creatine Kinase 65 U/L (55-170); Estimated Glomerular Filt Rate 54; Glucose 92 mg/dL (65-110); Potassium 4.2 mmol/L (3.4-5.0); Sodium 134 mmol/L (137-145)
[2023-12-13 15:50] LABS: Erythrocyte Sedimentation Rate 89 mm/hr (0-20)
[2023-12-20 12:19] LABS: Basophils Percent Auto 0.4 % (0.2-1.2); Eosinophils Absolute Auto 0.2 K/mm3 (0-0.3); Eosinophils Percent Auto 2.6 % (0-4.4); Hematocrit 34.4 % (42.0-52.0); Hemoglobin 10.9 g/dL (14.0-18.0); Immature Granulocyte Absolute 0.02 K/mm3 (0.00-0.031); Immature Granulocyte Percent A 0.3 % (0-0.5); Lymphocytes Absolute Auto 1.82 K/mm3 (0.9-3.2); Lymphocytes Percent Auto 26.2 % (18.3-44.2); Mean Corpuscular HGB Conc 31.7 g/dl (32-36); Mean Corpuscular Hemoglobin 29.2 pg (26-34); Mean Corpuscular Volume 92.2 fl (80-100); Mean Platelet Volume 8.7 fl (7.4-10.4); Monocytes Absolute Auto 0.5 K/mm3 (0.1-0.6); Monocytes Percent Auto 7.5 % (2.6-8.5); Neutrophils Absolute Auto 4.4 K/mm3 (1.3-6.7); Platelet Count Result 196 k/mm3 (150-375); Red Blood Count 3.73 M/mm3 (4.6-6.20); Red Cell Distribution Width 14.2 % (11.5-14.5)
[2023-12-20 12:41] LABS: Alanine Aminotransferase 11 U/L (6-50); Albumin Level 3.8 g/dL (3.5-5.1); Alkaline Phosphatase 105 U/L (38-126); Anion Gap 8 mmol/L (4-12); Aspartate Amino Transferase 19 U/L (17-59); Bilirubin,Total 0.3 mg/dL (0.2-1.3); Blood Urea Nitrogen 23 mg/dL (9-20); CRP 4.1 mg/dL (<1.0); Calcium 8.9 mg/dL (8.4-10.2); Carbon Dioxide 26 mmol/L (22-30); Chloride 102 mmol/L (98-107); Creatine Kinase 52 U/L (55-170); Estimated Glomerular Filt Rate 59; Glucose 92 mg/dL (65-110); Potassium 3.9 mmol/L (3.4-5.0); Sodium 136 mmol/L (137-145)
[2023-12-20 13:10] LABS: Erythrocyte Sedimentation Rate 116 mm/hr (0-20)
[2023-12-27 14:16] LABS: Basophils Percent Auto 0.5 % (0.2-1.2); Eosinophils Absolute Auto 0.2 K/mm3 (0-0.3); Eosinophils Percent Auto 3.2 % (0-4.4); Hematocrit 34.2 % (42.0-52.0); Hemoglobin 11.1 g/dL (14.0-18.0); Immature Granulocyte Absolute 0.02 K/mm3 (0.00-0.031); Immature Granulocyte Percent A 0.3 % (0-0.5); Lymphocytes Percent Auto 33.1 % (18.3-44.2); Mean Corpuscular HGB Conc 32.5 g/dl (32-36); Mean Corpuscular Hemoglobin 29.6 pg (26-34); Mean Corpuscular Volume 91.2 fl (80-100); Mean Platelet Volume 8.8 fl (7.4-10.4); Monocytes Absolute Auto 0.4 K/mm3 (0.1-0.6); Monocytes Percent Auto 6.5 % (2.6-8.5); Neutrophils Absolute Auto 3.6 K/mm3 (1.3-6.7); Neutrophils Percent Auto 56.4 % (45.5-73.1); Platelet Count Result 225 k/mm3 (150-375); Red Blood Count 3.75 M/mm3 (4.6-6.20); White Blood Count 6.3 K/mm3 (4.5-10.0)
[2023-12-27 14:28] LABS: Alanine Aminotransferase 13 U/L (6-50); Albumin Level 3.9 g/dL (3.5-5.1); Alkaline Phosphatase 101 U/L (38-126); Anion Gap 12 mmol/L (4-12); Aspartate Amino Transferase 20 U/L (17-59); Bilirubin,Total 0.2 mg/dL (0.2-1.3); Blood Urea Nitrogen 30 mg/dL (9-20); CRP 1.5 mg/dL (<1.0); Calcium 9.2 mg/dL (8.4-10.2); Carbon Dioxide 23 mmol/L (22-30); Chloride 104 mmol/L (98-107); Creatine Kinase 64 U/L (55-170); Estimated Glomerular Filt Rate > 60; Glucose 102 mg/dL (65-110); Potassium 4.1 mmol/L (3.4-5.0); Sodium 139 mmol/L (137-145)
[2023-12-27 15:05] LABS: Erythrocyte Sedimentation Rate 86 mm/hr (0-20)
== END 2024-03-05 23:59 | disposition home or self-care (01) ==
LOC: HOME HLTH 13:32
PROVIDERS: PCP Family Medicine; Referring Provider Internal Medicine; Visit Provider Family Medicine
DX: M46.40 Discitis, unspecified, site unspecified (principal)
CPT/HCPCS: 80053; 82550; 85025; 85652; 86140

== ENCOUNTER 2024-02-07 10:10 | Emergency (ER) | payer BC, SELFPAY ==
[2024-02-07] VITALS (7 sets, daily range): BP systolic 148–189; BP diastolic 76–100; PULSE 80–91; RESP 16; TEMP 36.6; O2SAT 96
--- NOTE | 2024-02-07 11:02 | ED.MALEGU ---
HPI - Male Genitourinary General Chief complaint: Urogenital-Male Stated complaint: catheter issues Time Seen by Provider: 02/07/24 10:17 Source: patient Mode of arrival: ambulatory Limitations: no limitations History of Present Illness HPI Narrative: This is a 78 year old male that presents to the ER for bladder spasms. Ongoing since yesterday. Reports he recently had his Antonio catheter exchanged on Monday at his urologists office, Dr. Toleod. He was experiencing some spasms then. His spasms started again last night. He does not feel like his catheter is draining properly. He is very uncomfortable. Related Data Allergies Allergy/AdvReac Type Severity Reaction Status Date / Time No Known Allergies Allergy Verified 01/02/24 10:24 Review of Systems Review of Systems: CONSTITUTIONAL: Denies fever GASTROINTESTINAL: Reports bladder spasms. Denies nausea, vomiting GENITOURINARY: Reports hematuria. All systems reviewed & are unremarkable except as noted in HPI and below PMFSH Past Medical History Medical History Atrial fibrillation BPH loc w urin obs/LUTS chronic Antonio CKD (chronic kidney disease) Discitis History of ITP HTN (hypertension), benign Psoriatic arthritis Surgical History Surgical History Hx of appendectomy Family History Family History Father Heart disease Social History Social History Social History: Lives alone, Spend pack in [place]. No hx of tobacco use. Rare alcohol use but does binge 6-7 drinks once/month. No hx of drug use. Wishes to be DNR. He nominates his daughter to be the individual to make decision for his if he is unable. Smoking status: Never smoker Alcohol intake: never Substance use: never Do You Feel Safe in your Home?: Yes Lack of Transportation: No Lack of Food: Never True Current Housing: I Have Housing Concerned About Future Housing: No Difficulty Paying Gas/Electric Bills: No Difficulty Paying for Meds: No Currently Unemployed: No Education: Decline to Answer Difficulty w/ Childcare or Family Care: No Spiritual care concerns: No Exam Narrative: GENERAL: Elderly, well-nourished, uncomfortable HEAD: Normocephalic, atraumatic. EYES: EOMI. CHEST: Clear to auscultation. No respiratory distress. No wheezes rales or rhonchi HEART: Regular rate and rhythm. No murmur heard. Normal peripheral pulses. ABDOMEN: Bladder is distended, normal active bowel sounds. EXTREMITIES: Normal range of motion. No edema. SKIN: Warm, dry, no rash. NEURO: No focal deficits. Alert and oriented x3. PSYCH: Normal mood and affect Course Course Emergency Course: patient feels much better after Antonio catheter was replaced and is now draining well Vital Signs Vital signs: Vital Signs Blood Pressure 187/91 H 02/07/24 10:30 Pulse Rate 91 02/07/24 11:30 Respiratory Rate 16 02/07/24 11:30 Blood Pressure 148/76 H 02/07/24 11:30 Pulse Oximetry 96 02/07/24 11:30 MDM - Male Genitourinary MDM Narrative Medical decision making narrative: Patient presents to the emergency department for bladder spasms. Had his Antonio catheter replaced 2 days ago at his urologist office. Has been having trouble with bladder spasms since. His catheter was replaced and is now draining well. He had about 700 mls of urine output while in the ER. Urine does show some evidence of infection. Patient will be started on antibiotic. Instructed to have further follow-up with his urologist. He was given warnings to return to the ER Differential Diagnosis Differential diagnosis: Likely urinary tract infection, acute retention of urine and other ( Antonio catheter malplacement) Lab Data Attestation: I reviewed the patient's lab results. Labs:
[2024-02-07 11:35] LABS: Add Urine Microscopic? YES; Appearance Urine Turbid (Clear); Bacteria Urine 4+ /hpf; Bilirubin Urine Negative (Negative); Blood Urine 3+ (Negative); Color Urine Yellow (Yellow); Glucose Urine UA Negative (Negative); Ketones Urine Negative (Negative); Leukocyte Esterase Ur 3+ LEU/UL (Negative); Nitrate Urine Negative (Negative); Non Pathogenic Casts 0-2; Protein Urine 2+ mg/dL (Negative); RBC Urine 51-100 /hpf (0-2); Specific Grav Ur 1.015 (1.001-1.035); Squamous Epithelial Cell Urine None Seen /hpf (Few); Urobilinogen Urine 0.2 mg/dL (<2.0); WBC Urine >100 /hpf (0-3)
== END 2024-02-07 12:18 | disposition home or self-care (01) ==
PROVIDERS: Emergency Provider Physician Assistant; PCP Family Medicine
DX: N39.0 Urinary tract infection, site not specified (principal); T83.091A Other mechanical complication of indwelling urethral catheter, initial encounter; I48.91 Unspecified atrial fibrillation; N40.1 Benign prostatic hyperplasia with lower urinary tract symptoms; N13.8 Other obstructive and reflux uropathy; I12.9 Hypertensive chronic kidney disease with stage 1 through stage 4 chronic kidney disease, or unspecified chronic kidney disease; N18.9 Chronic kidney disease, unspecified; L40.50 Arthropathic psoriasis, unspecified; Z66 Do not resuscitate; Y84.6 Urinary catheterization as the cause of abnormal reaction of the patient, or of later complication, without mention of misadventure at the time of the procedure
CPT/HCPCS: 51702; 81001; 87077; 87086; 87186; 99283

== ENCOUNTER 2024-02-29 13:24 | Outpatient (CLI) | payer BC, SELFPAY ==
--- NOTE | ~2024-02-29 | PE_ITS ---
EXAMINATION: PET skull to mid thigh DATE: 02/29/2024 15:35 INDICATION: Prostate cancer TECHNIQUE: 5.152 mCi of Illucix Ga-[id number]) was administered i.v. Low dose computed megha graphy (CT) images were acquired from the base of the brain to the base of the brain to the proximal thighs for attenuation correction and anatomic localization. Positron emission tomography (PET) image s were acquired in the same distribution beginning 68 minutes after injection. Images including fused PET/CT images were reconstructed in axial, coronal, and sagittal planes. Automated exposure control technique was employed. The dose-length product was 1135.20mGy-cm. COMPARISON: None FINDINGS: Head/neck: Typical pattern of symmetric physiologic increased activity in the lacrimal, parotid and submandibula r glands as well as along the mucosa of the nasal and oral cavities, pharynx and hypopharynx. No path ologically enlarged cervical lymphadenopathy or suspicious foci of increased uptake in the visualized head or neck. Chest: Mild dependent atelectasis in the dependent lower lobes. No pulmonary nodules, pneumonia, pulmonary e mercy or pleural effusion. Heart size normal. Sclerotic coronary artery calcific lesion. Thoracic aorta is normal in caliber. No pathologically enl arged or PSMA avid thoracic lymphadenopathy. Abdomen/pelvis/proximal thighs: Physiologic renal accumulation and excretion of activity in the kidneys, bladder and along portions o f ureters. There is relatively diffuse prominent activity throughout the prostate greatest at the cep halad aspect of the prostate with maximal SUV of 23.5 consistent with primary prostate cancer. Modera te atrophy with cortical scarring of the right kidney with significantly lower level of activity in t he mid to lower right kidney when compared with the upper pole of the contralateral left kidney. Norm al degree and slightly heterogenous pattern of increased uptake throughout the liver and spleen witho ut radiologic correlate or dominant PSMA avid lesion. Calcified gallstone in the normal-appearing spl een. The pancreas and bilateral adrenal glands are normal. Moderate uptake scattered throughout the b owels with typical duodenal and proximal jejunal predominance and without radiologic correlate, also likely physiologic. There are few scattered colonic diverticula without adjacent comparison to sugges t diverticulitis. No other abnormal foci of increased uptake or pathologically enlarged lymphadenopat hy in the abdomen, pelvis or proximal thighs. Musculoskeletal: Moderate to severe spondylosis throughout the spine greatest in the lumbar spine. There is chronic sc lerosis at the left ischial tuberosity which is without corresponding PSMA uptake to suggest metastat ic prostate cancer. The sclerosis demonstrates relatively linear orientation in the sagittal and thelma nal planes which is without significant interval change dating back CT dated 08/04/2023 suggests this could represent an old healed fracture. No other sclerotic lesions to suggest other non prostatic met astatic disease. IMPRESSION: 1. Enlarged prostate with heterogeneous diffuse increased PSMA uptake greatest posterior superiorly c onsistent with primary prostate cancer. No abnormal PSMA avid lesions to suggest metastatic disease. This includes no uptake at a chronic sclerotic lesion at the left ischial tuberosity which could repr esent old healed fracture, early diverticular change or other non prostatic metastatic disease althou gh there are no other suspicious skeletal lesions to suggest this. Reviewed, dictated and finalized at location A. IMPRESSION: 1. Enlarged prostate with heterogeneous diffuse increased PSMA uptake greatest posterior superiorly consistent with primary prostate cancer. No abnormal PSMA avid lesions to suggest metastatic disease. This includes no uptake at a chroni c sclerotic lesion at the left ischial tuberosity which could represent old hea led fracture, early diverticular change or other non prostatic metastatic disea se although there are no other suspicious skeletal lesions to suggest this.
== END 2024-02-29 13:25 | disposition home or self-care (01) ==
PROVIDERS: PCP Family Medicine; Visit Provider Urology
DX: C61 Malignant neoplasm of prostate (principal)
CPT/HCPCS: 78815; A9552

== ENCOUNTER 2024-05-10 11:46 | Outpatient (CLI) | payer BC, SELFPAY ==
--- NOTE | ~2024-05-10 | DEXA_ITS ---
Bone Density Report Name: ROULA PRIETO Age: 78 Sex: Male Ethnicity: White Date of : 1945 Indication: screening for osteoporosis; height loss; cancer; rheumatoid arthritis; Referring Provider: RYAN LEON Study: Bone densitometry was performed. Exam Date: May 10, 2024 Accession number: [id number] Bone Density: Region BMD T-score Z-score Classification AP Spine(L1-L4) 1.690 5.4 6.6 Normal Femoral Neck (Left) 0.973 0.3 1.8 Normal Total Hip (Left) 1.201 1.1 2.1 Normal Femoral Neck (Right) 0.962 0.2 1.7 Normal Total Hip (Right) 1.177 1.0 1.9 Normal Femoral Neck Mean 0.967 0.3 1.7 Normal Total Hip Mean 1.189 1.0 2.0 Normal World Health Organization criteria for BMD impression classify patients as: Normal (T-score at or above -1.0), Osteopenia (T-score between -1.0 and -2.5), or Osteoporosis (T-score at or below -2.5). 10-year Fracture Risk: FRAX not reported because: All T-scores for Spine Total, Hip Total, Femoral Neck at or above -1.0 Clinical Information Provided by Patient: Has rheumatoid arthritis Has used the following medications: Vitamin D, Calcium Has the following medical conditions: Cancer Patient maximum height was 71 No regular weight bearing exercise Impression: The patient has normal bone mass. Discussion: BONE DENSITY IS ABOVE THE MINIMUM DESIRABLE LEVEL AT ALL SKELETAL SITES TESTED. This patient?s bone mineral density is above the minimum desirable level (T-score -1.0 or better) at all sites measured. The patient should follow a healthful lifestyle (good nutrition with adequate calcium and vitamin D, and appropriate weight-bearing exercise). Follow-Up: Consider repeating this study in 5 years or sooner if there is some new clinical indication. Reported by: NAHED on 05/10/2024 12:21:00 PM. Reviewed, dictated and finalized at location A.
== END 2024-05-10 11:47 | disposition home or self-care (01) ==
PROVIDERS: PCP Family Medicine; Visit Provider Urology
DX: M81.0 Age-related osteoporosis without current pathological fracture (principal)
CPT/HCPCS: 77080